=== PATIENT | male | born 1970 | race Caucasian/White ===

== ENCOUNTER 2018-04-25 09:00 | Outpatient (RCR) | payer OTHER, SELFPAY ==
--- NOTE | 2018-03-27 16:31 | HP.PTEVAL_ITS ---
Patient's Visit Information SHARA DELEON is a 47 year old M referred to Physical Therapy by Manuel Welsh DO with a diagnosis of LUMBAR DDD. Date of Evaluation: 03/27/18 Physical Therapist: Cassie Mccabe - Visit Plan Frequency: 3x /Week Duration: 4-6 Weeks Plan: AQUATIC THERAPY FOR PAINN RELIEF, POSTURE CORRECTION/STRENGTHENING, INSTRUCTION IN APPROPRIATE BODY MECHANICS AND ACTIVITY MODIFICATIONS. AGRESSIVE DLS STARTING WITH A NEUTRAL SPINE PROGRESSING ROM TOLERATED. ALMA LE ROM, STRETCHING AND STRENGTHENING. HEP INSTRUCTION. CONSIDER VIDEO ANALYSIS FOR CORRECTIVE EXERCISE PRESCRIPTION. - Subjective Subjective: Diagnosis: LUMBAR DDD. Work/Leisure: [employer] ABOUT 60 HOURS A WEEK. 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 Disability: NO. Present symptoms : NECK, THORACIC AND LUMBAR PAIN. ALMA FOOT TINGLING AND PAIN. NO UE PAIN, NUMBNESS OR TINGLING. INTERMITTENT ALMA HIP, THIGH AND LEG PAIN TOO. Present since: 2006. Pain Scale: Worst - 6/10 Least - 2/10. Currently: 2/10 THORACIC PAIN. A LITTLE BIT OF TINGLING IN NECK. Commenced as a result of: NO APPARENT REASON OTHER THAN HEAVY LIFTING. Symptoms at onset: POSTERIOR THIGHS. Worse: NECK - WEARING LEAF BLOWER, CARRYING GROCERIES. LOW BACK - ON FEET A LOT, JOGGING, STANDING. THORACIC - SITTING? USUALLY THORACIC IS CONSTANT. Better: RESTING IN LYING DOWN AND SOMETIMES SITTING. INVERSION TABLE. VICODIN. Disturbed sleep: NO. Previous history/Previous treatment: PATIENT REPORTS HE WAS TRYING TO GET A LOT OF THINGS DONE BEFORE VACATION IN 2006 AND BACK FLARED UP FOR NO APPARENT REASON. ENDED UP WITH MRI SUNDAY AND SURGERY FOLLOWING SUNDAY. 2006 - LUMBAR LAMINECTOMY DR. THOMAS. PT HERE AFTER SURGERY. PAIN MGMT TRIED MARVIN IN NECK ABOUT 10 YEARS AGO - NO EFFECT. NO SIGNIFICANT CHIRO. 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 SURGERY WAS RECOMMENDED BY [facility]. PATIENT REPORTS HE ELECTED NOT TO HAVE THE SURGERY AT THAT TIME BECAUSE THEY TOLD HIM IT WOULD NOT FIX HIS FOOT PROBLEM. HE REPORTS HE WAS HAVING A LOT OF HIP PAIN AT THAT TIME TOO - HAD IMAGING AND ORTHO CONSULT BUT WAS DETERMINED TO BE MORE OF A SPINE PROBLEM. PATIENT REPORTS DURING THIS - ABOUT A YEAR AGO - MOST OF THE PAIN WAS MORE RIGHT LE BUT NOW IT IS BOTH LEGS ABOUT THE SAME. Coughing/sneezing/straining: NEGATIVE. Gait: NORMAL ALTHOUGH HE THINKS RIGHT FOOT SLAPS SOME IF HE OVER DOES IT AND HE ISN'T SURE IF IT IS RESIDUAL FROM PRIOR INJURY OR NOT. Difficulty initiating urinatin: NO. Accidents: NO. Unexplained weight loss: NO. Imaging: RECENT LUMBAR X-RAYS AT [facility] - PATIENT REPORTS THEY TOLD HIM THEY SHOWED DEGENERATION OF MULTIPLE LEVELS. STENOSIS? PATIENT REPORTS THEY TOLD HIM HE WILL PROBABLY NEED AN MRI AND POSSIBLY SURGERY. PMH/Recent major surgery: PROSTATE - SEEING UROLOGIST. H/O RIGHT FOOT INJURY? OTHER: MRI OF LUMBAR SPINE HAS NOT BEEN ORDERED YET. PT WAS RECOMMENDED FIRST. OTHER: WITHIN 1.5 TO 2 MILES OF JOGGING HAS TO STOP DUE TO PAIN AND RECOVERY TIME IS GETTING LONGER. NOW RECOVERY ISN'T JUST LOW BACK, IT CAN BE HIPS AND GROIN TOO. PATIENT REPORTS IT IS THE IMPRACT FROM JOGGING THAT IS THE MAIN ISSUE MORE THAN LIFTING. PATIENT REPORTS THAT PT IN THE PAST HAS HELPED. - Objective Sitting/Standing Posture: FAIR. Lordosis: REDUCED. Lateral shift: NO. Relevant shift: N/A. Other Observations: INDEP GAIT AND TRANSFERS. NO AD'S. INDEP SIT TO STAND WITHOUT UE ASSIST. Motor deficit: ALMA LE STRENGTH 5/5 WITH MMT EXCEPT RIGHT ANKLE GRADED 4/5 INTO DORSIFLEXION AND EVERSION. Sensory deficit: NO. ROM deficit: TIGHT ALMA HS'S AND GASTROC SOLEUS COMPLEX'S. Dural Signs: NEGATIVE ALMA LE DURAL SIGNS. Lumbar mvmt loss: flex - MIN. ext - MIN. R SG - MIN. L SG - MIN. Core strength: FAIR - Goals Goal 1:: DECREASE C/O LBP Goal Time Frame: 4-6 Weeks Goal 2:: IMPROVE LIFTING, STANDING, AND RECREATIONAL FUNCTION Goal Time Frame: 4-6 Weeks Goal 3:: INSTRUCT IN PROPHYLAXIS Goal Time Frame: 4-6 Weeks - Rehabilitation Potential Rehabilitation Potential: Good - Anticipated Interventions Patient/Client Instruction: Educate patient on: Condition, Plan of Care, Risk Factors, Benefits of Fitness Program For the Purpose of:: To improve self management Therapeutic Exercise to Include: Strength training, Body mechanics, Postural training, Flexibilty training, In an aquatic setting, Dynamic Lumbar Stabilization Comment: AGRESSIVE CORE STRENGTH AND STABILITY TRAINING TOLERATED. MONITOR ALMA FOOT SX'S AND AVOID PERIPHERALIZATION OF SX'S. For the Purpose of:: To improve ability of physical actions for home/community/ work/leisure TENS: Yes IF ES: Yes Cryotherapy (ice pack, ice massage): Yes Thermo therapy (hot pack): Yes Ultrasound (thermal/non thermal): Yes For the Purpose of:: To decrease pain, To decrease swelling/inflammation, To increase ROM Thank you for the opportunity to evaluate your patient. For Medicare and Medicare HMO plans, please review the plan of care and approve it. It will need to be FAXED BACK to us at [phone] for Medicare purposes. Please let me know if there are questions or concerns regarding this plan of care. Physician Signature: Date:
--- NOTE | 2018-04-25 09:40 | HP.PTDCSUM ---
HP - PT D/C Summary It has been my pleasure to treat SHARA DELEON under orders from Manuel Wise DO for the diagnosis of LUMBAR DDD for a total of 10 visit(s). Discharge Date: Please see the following information for a summary of their discharge status. - Subjective Subjective: PATIENT REPORTS THAT HIS SYMPTOMS ARE ABOUT THE SAME BUT HE CAN DEFINATELY CORRECT SOME OF THE PAIN BY CHANGING HIS POSTURE. PATIENT REPORTS HE THINKS HIS RIGHT HAMSTRING IS HURTING BECAUSE HE WORKED A LOT YESTERDAY. - Pain Lumbar Spine Pain Intensity (Out of 10): 2 - Overall Improvement % Improvement: 5 - Objective Objective/Function: ALTHOUGH PATIENT HAS BEEN ABLE TO LEARN SOME PAIN MGMT TECHNIQUES, THERE HAS BEEN NO SIGNIFICANT PROGRESS WITH PT. UPON EXAM TODAY: Motor deficit: ALMA LE STRENGTH 5/5 WITH MMT EXCEPT RIGHT ANKLE GRADED 4/5 INTO DORSIFLEXION AND EVERSION. Sensory deficit: NO. ROM deficit: TIGHT ALMA HS'S AND GASTROC SOLEUS COMPLEX'S. Dural Signs: NEGATIVE ALMA LE DURAL SIGNS. Lumbar mvmt loss: flex - MIN. ext - MIN. R SG - MIN. L SG - MIN - Goals Goal 1:: DECREASE C/O LBP Goal Progress: Not Progressing Goal 2:: IMPROVE LIFTING, STANDING, AND RECREATIONAL FUNCTION Goal Progress: Not Progressing Goal 3:: INSTRUCT IN PROPHYLAXIS Goal Progress: Not Progressing - Plan Plan: D/C DUE TO LACK OF PROGRESS. FOLLOW UP PLANNED WITH DR. WISE NEXT WEEK. PATIENT IS AGREEABLE TO DISCHARGE. - D/C Information If there are questions or concerns regarding this patient's physical therapy, please feel free to call me at [phone]. Thank you for the referral of this patient. Sincerely, Cassie Mccabe
== END 2018-04-25 19:00 | disposition home or self-care (01) ==
LOC: PT 09:00
PROVIDERS: Family Provider Family Medicine; PCP Family Medicine; Visit Provider Orthopaedic Surgery
DX: M51.36 Other intervertebral disc degeneration, lumbar region (principal)
CPT/HCPCS: 97113; 97161; 97164; 97530

== ENCOUNTER 2020-10-18 19:55 | Emergency (ER) | payer OTHER, SELFPAY ==
[2020-09-29 07:39] VITALS: BMI 25.5
[2020-10-18 19:56] VITALS: BP 146/95; PULSE 66; RESP 16; TEMP 36.4; O2SAT 99; BMI 25.1
--- NOTE | 2020-10-18 20:04 | RAD_ITS ---
STUDY: X-RAY CHEST REASON FOR EXAM: Male, 50 years old. Lower left rib pain that radiates into shoulder TECHNIQUE: Single frontal view of the chest. COMPARISON: 09/14/2017 FINDINGS: There is no new focal consolidation. Normal size heart. Normal mediastinum and kimber. Normal visualized pulmonary arteries. Normal visualized aortic arch and descending thoracic aorta. Normal visualized thoracic spine. Normal visualized ribs, clavicles, and shoulders. There is no demonstrated abnormality of the visualized soft tissue structures of the upper abdomen. RAD/Chest 1 View (Portable) IMPRESSION: No acute cardiopulmonary process. Electronically Signed: Lizzie Wade MD at 20:15 EST Tel , Service support ,
[2020-10-18 20:13] LABS: Absolute Lymphocyte Count 3.33 X10^3/uL (0.83-4.51); Absolute Neutrophil Count 3.3 X10^3/uL (2.0-7.7); Basophil# 0.04 X10^3/uL; Basophil% 0.5 % (0-1); Eosinophils% 1.3 % (0-5); Hematocrit 41.7 % (40-54); Hemoglobin 14.7 g/dL (13.0-16.5); Lymphocyte # 3.33 X10^3/ul (4.0); Lymphocyte % 44.3 % (19-41); Mean Corp Hgb Conc 35.3 g/dL (32-36); Mean Corpuscular Hgb 33.3 pg (27.0-32.0); Mean Corpuscular Volume 94.3 fL (80-94); Mean Platelet Vol. 9.1 fl (6.2-12.0); Monocyte# 0.68 X10^3/uL; Monocyte% 9.1 % (0-10); NRBC Flagged by Analyzer 0 % (0-5); Neutrophil # 3.34 X10^3/uL (2.7-7.7); Neutrophil % 44.5 % (47-70); Platelet Count 256 K/mm3 (150-450); RBC Distribution Width CV 12.8 % (11.6-14.6); RBC Distribution Width SD 44.2 fl (35.1-43.9); Red Blood Count 4.42 M/mm3 (4.6-6.2); White Blood Count 7.5 K/mm3 (4.4-11.0)
[2020-10-18 20:26] LABS: D-Dimer Quantitative (DVT/PE) 0.57 FEU/ug/m (0.27-0.49)
[2020-10-18 20:27] LABS: Anion Gap 6 (5-15); BUN 16 mg/dL (7-18); Calcium,Total 8.7 mg/dL (8.5-10.1); Chloride 107 mmol/L (98-107); Creatinine, Serum 1.07 mg/dL (0.70-1.30); EST Glomerular Filtration Rate 78 mL/min (>60); Est Glom Filt Rate - Afr Amer 94 mL/min (>60); Estimated Creatinine Clearance 85.28 ml/min; Glucose 97 mg/dL (74-106); Sodium Level 142 mmol/L (136-145)
--- NOTE | 2020-10-18 20:58 | CT_ITS ---
STUDY: CTA CHEST REASON FOR EXAM: Male, 50 years old. ELEVATED D DIMER. HAVING CP WHEN TAKING IN A DEEP BREATH RADIATION DOSAGE (If Supplied By Facility): CTDIvol = ( 8.29 ) mGy, DLP = ( 362.12 ) mGycm TECHNIQUE: The examination was performed with the intravenous administration of IV 100mL Isovue-370. Post-processing of the angiographic images was performed, with multiplanar reformation and 3D reconstruction. Individualized dose optimization techniques were used for this CT. COMPARISON: None. FINDINGS: Normal enhancement of the main pulmonary artery and right and left pulmonary arteries. Normal enhancement of the bilateral peripheral pulmonary arteries. There is no demonstrated pulmonary embolism. Normal thoracic aorta and visualized great vessels. There is no demonstrated aortic dissection. Normal heart and pericardium. Normal mediastinum. Normal hilar regions. Normal visualized trachea and bronchi. The lungs are well expanded. Normal pulmonary parenchyma. Posterior to the right anterior sixth rib there is a small focus of air which may be intravascular in nature. Normal pleura. Normal chest wall structures. Normal osseous structures. Normal visualized upper abdomen. CT/CTA Chest W/WO Contrast IMPRESSION: No demonstrated pulmonary embolism or arterial dissection. No acute cardiopulmonary process. Electronically Signed: Lizzie Wade MD at 21:30 EST Tel , Service support ,
--- NOTE | 2020-10-18 22:36 | EKG12_ITS ---
Test Reason : CHEST OTHER Blood Pressure : / mmHG Vent. Rate : 050 BPM Atrial Rate : 050 BPM P-R Int : 158 ms QRS Dur : 098 ms QT Int : 430 ms P-R-T Axes : 046 018 036 degrees QTc Int : 392 ms Sinus bradycardia Otherwise normal ECG Confirmed by SUNITA LOCKE, KOKO ([id number]), magazine editor ABDIFATAH BARNES ([id number]) on 10/20/2020 1:06:19 PM Referred By: Confirmed By:KOKO DORSEY MD
[2020-10-18 22:52] VITALS: BP 124/89; PULSE 57; RESP 17; O2SAT 98
--- NOTE | 2020-10-18 23:11 | ED.VISSUMM ---
- ER Visit Summary Date of Service: 10/18/20 Chief Complaint: Left rib pain History of Present Illness: The patient is a 50 M presenting with left-sided rib pain. Patient states this started on Sunday. Pain is worsened with deep inspiration and different movements. He has no pain at rest. Pain is under his left ribs. Denies injury. He has a family history of blood clot. He denies shortness of breath or cough. Denies fever or chills. Denies myalgias or headache. Physical Examination: Vitals are stable. Patient is afebrile. Alert no acute distress. HEENT exam is unremarkable. Neck is supple. Lungs are clear and equal bilaterally. Heart is regular rate and rhythm. Abdomen is soft nontender nondistended. No guarding or rebound Extremities are unremarkable. Skin is warm and dry. No focal neurologic deficit. Remainder of exam is unremarkable. Emergency Department Course and Treatment: CBC, chemistries unremarkable. EKG is sinus rate of 50 with no acute ischemic changes. Chest x-ray shows no acute process. D-dimer 0.57. CTA chest was obtained and shows no demonstrated pulmonary embolism or arterial dissection. No acute cardiopulmonary process. Troponin is negative. Lipase is normal. On reevaluation, patient is resting comfortably. He has pain in different positions and when taking a deep breath. This is likely musculoskeletal. Advised to follow-up with primary care physician. Advised return to ED for worsening complaints. Disposition: Discharge home Impression: Left lower rib pain This note was generated with Tealium dictation software. It may contain incorrect words, spelling, and punctuation that were not noted in review of the chart prior to signing ED Disposition - Plan for ED Patient: Referrals: Rigoberto Reddy MD [Primary Care Provider] -
[2020-10-18 23:17] LABS: AST(SGOT) 17 U/L (15-37); Alanine Aminotransfer ALT/SGPT 27 U/L (16-61); Albumin, Serum 3.9 g/dL (3.2-5.0); Alkaline Phosphatase 55 U/L (45-117); Bilirubin, Direct 0.14 mg/dL (0.00-0.30); Globulin 3.6 g/dL (2.2-4.2); Protein, Total 7.5 g/dL (6.4-8.2)
[2020-10-18 23:20] LABS: Lipase 155 U/L (73-393)
--- NOTE | 2020-10-18 23:45 | ED.DEP ---
ED Disposition - Plan for ED Patient: Instructions: ED Strain Chest Wall Referrals: Rigoberto Reddy MD [Primary Care Provider] -
[2020-10-19 00:05] VITALS: BP 121/94; PULSE 60; RESP 12; O2SAT 96
== END 2020-10-19 00:05 | disposition home or self-care (01) ==
LOC: ED 22:13
PROVIDERS: Emergency Provider Emergency Medicine; PCP Family Medicine
DX: R07.81 Pleurodynia (principal)
CPT/HCPCS: 71045; 71275; 80048; 80076; 83690; 84484; 85025; 85379; 93005; 99284; Q9967; A4216

== ENCOUNTER → 2021-09-02 | Outpatient (CLI) | payer OTHER, SELFPAY | END | disposition home or self-care (01) | LOC: LABSPEC 10:17 | PROVIDERS: PCP Family Medicine; Referring Provider Physician Assistant Surgical; Visit Provider Physician Assistant Surgical | DX: Z20.822 Contact with and (suspected) exposure to COVID-19 (principal) | CPT/HCPCS: 87635; U0005; U0003 ==

== ENCOUNTER → 2025-01-20 | Outpatient (CLI) | payer OTHER, SELFPAY | END | disposition home or self-care (01) | LOC: LAB.FUTURE 16:25 → VSLAB 16:29 | DX: Z00.00 Encounter for general adult medical examination without abnormal findings (principal); Z83.2 Family history of diseases of the blood and blood-forming organs and certain disorders involving the immune mechanism | CPT/HCPCS: 36415 ==

== ENCOUNTER 2025-01-28 11:59 | Emergency (ER) | payer OTHER, SELFPAY ==
[2025-01-28 11:59] VITALS: BP 133/92; PULSE 64; RESP 15; TEMP 36.2; O2SAT 100
--- NOTE | 2025-01-28 12:46 | EX.ED.DYSGE1 ---
HPI History of Present Illness Chief Complaint: Lower Extremity Injury Narrative Narrative: Chief complaint and HPI: Right lower extremity DVT. 54-year-old gentleman with no significant past medical history presents from radiology for right lower extremity DVT. Patient states for the past year he has been having intermittent pain in his right calf compared to his left. He states that he felt like his right calf is slightly larger than the left. He states he did not think anything of it until his brother was recently diagnosed with a DVT so he decided to have this further evaluated outpatient with his PCP. Blood work was obtained as well as ultrasound. Patient had his ultrasound performed prior to arrival that showed a right lower extremity DVT. He denies any chest pain, shortness of breath, lightheadedness. Review of systems: See HPI Medications: As listed on the chart Allergies: As listed on the chart PFSH: Per chart Vital signs: As listed on the chart. Reviewed. Physical exam: Gen: A&O x3, NAD Head: Normocephalic, atraumatic Eyes: No sclera icterus, conjunctiva clear ENT: Moist mucous membranes Neck: Trachea midline, No JVD CV: RRR, no murmurs Resp: Lungs CTA BL, no w/r/c Musc: Full ROM, no deformity, minimal tenderness to the right lower calf compared to the left-no erythema/warmth/swelling of either extremity, DP/PT pulse +2 Skin: Warm, dry Neuro: Alert, oriented, grossly intact, sensation intact Psych: Cooperative, appropriate mood and affect [facility] Medical History Back pain Limb weakness Home Medications ?Medication ?Instructions ?Recorded ?Last Taken ?Type Boostrix Tdap 2.5 Lf unit-8 mcg-5 0.5 ml IM ONCE #1 mL 08/28/22 Unknown Clinic Lf/0.5 mL intramuscular syringe (diphth,pertus(acell),tetanus) Flucelvax Quad [id number] (PF) 60 0.5 ml IM ONCE #0.5 mL 08/28/22 Unknown Clinic mcg (15 mcg x 4)/0.5 mL IM syringe (flu vac qs 2021(6 ms up)CD(PF)) apixaban 5 mg (74 tabs) tablets in See Rx Instructions PO .COMPLEX 01/28/25 Unknown Rx a dose pack (Eliquis DVT-PE Treat #74 tabs 30D Start) Allergy/AdvReac Type Severity Reaction Status Date / Time No Known Allergies Allergy Verified 01/28/25 12:02 Family History (Updated 12/31/23 @ 09:02 by Sandro Corbin SLITTER OPERATOR, SLITTER OPERATOR-C) Mother Colon cancer Pancreatic cancer Blood clotting disorder Sister Blood clotting disorder Brother Blood clotting disorder Surgical History History of back surgery Social History Smoking Status: Never smoker alcohol intake: current Alcohol type: beer EXAM Physical Exam Const Vital Signs: 01/28/25 11:59 Temperature 97.1 F L Temperature Source Temporal Pulse Rate 64 Respiratory Rate 15 Blood Pressure 133/92 H Blood Pressure Mean 105 Pulse Ox 100 Oxygen Delivery Method Room Air MDM MDM MDM Narrative Medical decision making narrative: 54-year-old gentleman with no significant past medical history presents from radiology for right lower extremity DVT. Patient states he has been having intermittent pain in his right calf for a year. He obtain an ultrasound prior to arrival that shows an acute DVT in the right soleus vein. No DVT on the left. On presentation, vitals are stable other than some mild hypertension. He denies any lightheadedness, chest pain, shortness of breath, syncope. I do not think any further workup is needed such as labs or imaging. Patient has no contradictions to anticoagulation. 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 I did explain to him that he will need to be placed on a blood thinner, Eliquis. I explained to him that this can increase spontaneous bleeding as well as bleeding with trauma or injury. I explained to him that if he develops any injury he needs to be evaluated in the emergency department for bleeding. He confirmed understanding the plan. Patient discharged home with prescription for Eliquis. He needs follow-up with his PCP. Return precautions explained. He confirmed understanding of the plan. Impression: 1. Right lower extremity DVT Discharge Plan Triage Chief Complaint: Lower Extremity Injury ED Provider: Karri Escobedo Dx/Rx/DC Orders Clinical Impression: DVT (deep venous thrombosis) Instructions: DVT Complications, Anticoagulants, DVT Tx, ED Deep Vein Thrombosis (DVT) Prescriptions: New Eliquis DVT-PE Treat 30D Start 5 mg (74 tabs) tablets,dose pack See Rx Instructions .ROUTE .COMPLEX Qty: 74 0RF Rx Instructions: orally per package directions No Action Boostrix Tdap 2.5-8-5 Lf-mcg-Lf/0.5mL syringe 0.5 ml IM ONCE Qty: 1 0RF Flucelvax Quad [id number] (PF) 60 mcg (15 mcg x 4)/0.5 mL syringe 0.5 ml IM ONCE Qty: 0.5 0RF Primary Care Provider: Samuel Howard Referrals: Samuel Howard, SLITTER OPERATOR-C [Primary Care Provider] - 3-5 Days Activity Restrictions/Additional Instructions: Follow-up with your primary care physician. You need to be careful while being on blood thinners as blood thinners increase the risk of bleeding with injury as well as spontaneous bleeding. Let your job know that you were started on blood thinners. Print Language: Grenadian Disposition Disposition: Home, Self Care
== END 2025-01-28 13:12 | disposition home or self-care (01) ==
LOC: ED 13:04
PROVIDERS: Emergency Provider Surgery; Referring Provider Surgery; Visit Provider Surgery
DX: I82.401 Acute embolism and thrombosis of unspecified deep veins of right lower extremity (principal)
CPT/HCPCS: 99282

== ENCOUNTER → 2025-01-28 | Outpatient (CLI) | payer OTHER, SELFPAY ==
--- NOTE | 2025-01-28 10:45 | VDLE_ITS ---
Reason For Study Reason For Study: Pain in Right lower leg RIGHT LEFT GSV is normal. CFV is compressible, spontaneous, phasic, competent, CFV is compressible, spontaneous, phasic, competent and demonstrates normal augmentation. and demonstrates normal augmentation. FV is compressible, spontaneous, phasic, competent and demonstrates normal augmentation. Acute deep vein thrombosis is noted in the POP V. It is dilated and NONCOMPRESSIBLE. Acute deep vein thrombosis is noted in the T/P Trunk. It is dilated and NONCOMPRESSIBLE. PTV is compressible. Acute deep vein thrombosis is noted in the Per V. It is dilated and NONCOMPRESSIBLE. Acute deep vein thrombosis is noted in the right soleus vein. Procedure This is a venous duplex using B-mode, color flow and spectral Doppler. Exam performed in department. A preliminary report was called and/or faxed to Voicemail left on nurses line for Samuel Palma office. Patient taken to ED. VL/Venous Duplex US, Unilateral Interpretation Summary Acute deep vein thrombosis is noted in the right popliteal vein. Acute deep vei n thrombosis is noted in the right tibio- peroneal trunk. Acute deep vein thrombosis is noted in the right peroneal vein. Acute deep vein thrombosis is noted in the right soleus vein. The right common femoral vein, femoral vein, and posteri or tibial vein are patent and compressible. Valvular competence appears intact within the proximal deep venou s system on the right . The right great saphenous vein appears patent and compressible segmentally. The left common fem oral vein is patent and compressible . Ordering Physician: Samuel Howard Referring Physician: Samuel Howard Performed By: Gretchen Isbell
== END | disposition home or self-care (01) ==
LOC: CVS 10:42
DX: M79.661 Pain in right lower leg (principal)
CPT/HCPCS: 93971

== ENCOUNTER 2025-04-08 07:03 | Emergency (ER) | payer OTHER, SELFPAY ==
[2025-04-08 07:05] VITALS: BP 144/90; PULSE 60; RESP 16; TEMP 36.6; O2SAT 100; BMI 25.8
--- NOTE | 2025-04-08 07:18 | CT_ITS ---
PROCEDURE: CTA CHEST W/WO CONTRAST 04/08/2025 REASON FOR EXAM: HISTORY OF DVT, SHORTNESS OF BREATH TECHNIQUE: CTA axial imaging of the chest with intravenous contrast. Multiplanar and multisequence images were obtained. PATIENT PREPARATION: Per protocol CONTRAST: Isovue 370 VOLUME: 100 mL One or more dose reduction techniques were used (e.g., Automated exposure control, adjustment of the mA and/or kV according to patient size, use of iterative reconstruction technique). RADIATION DOSE SUMMARY: CTDlvol: 10.5 mGy DLP: 402.01 mGycm . COMPARISON: None FINDINGS: Hardware: None Lymph nodes: Small benign-appearing mediastinal lymph nodes. Heart: The heart is nonenlarged. No coronary calcification is seen. Thoracic Aorta: No thoracic aortic aneurysm or dissection. Pulmonary Vessels: No evidence of acute pulmonary emboli through the major subsegmental branches. Lungs and Airways: Mild dependent atelectasis. Pleura: No pleural effusion. No pneumothorax. Upper Abdomen: Visualized portions of the upper abdominal viscera are unremarkable. Bones: Unremarkable. CT/CTA Chest W/WO Contrast IMPRESSION: No evidence of pulmonary embolism. The lungs are clear. Reading Location: [place] [id number]
--- NOTE | 2025-04-08 07:19 | ED.VIS.DYS ---
HPI History of Present Illness Chief Complaint: Shortness of Breath Narrative Narrative: 54-year-old male past medical history of DVTs, having shortness of breath for 2 months. He relates history that he was diagnosed with DVTs and started Eliquis a few months ago. He has not missed a dose. However, he is concerned that he has a pulmonary embolism because all of his brothers had to start blood thinners and his mother also had pulmonary emboli. He denies any fevers or chills, no cough. He does not have follow-up with hematology/oncology until the next few weeks. [facility] Medical History Back pain Limb weakness Home Medications ?Medication ?Instructions ?Recorded ?Last Taken ?Type Boostrix Tdap 2.5 Lf unit-8 mcg-5 0.5 ml IM ONCE #1 mL 08/28/22 Unknown Clinic Lf/0.5 mL intramuscular syringe (diphth,pertus(acell),tetanus) Flucelvax Quad [id number] (PF) 60 0.5 ml IM ONCE #0.5 mL 08/28/22 Unknown Clinic mcg (15 mcg x 4)/0.5 mL IM syringe (flu vac qs 2021(6 ms up)CD(PF)) apixaban 5 mg (74 tabs) tablets in See Rx Instructions PO .COMPLEX 01/28/25 Unknown Rx a dose pack (Eliquis DVT-PE Treat #74 tabs 30D Start) sulfacetamide sodium 10 % topical 1 applic topical QDAY 03/05/25 Unknown 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 No fevers or chills, no other symptoms. EXAM Physical Exam Narrative Exam Narrative: Afebrile. Vital signs noted. Nontoxic-appearing. Cardiovascular examination of is a regular rate and rhythm. Lungs are clear to auscultation bilaterally. Abdomen is soft nontender with normal active bowel sounds. Neurovasc intact bilateral lower extremities. Palpable dorsalis pedis pulses. Const Vital Signs: 04/08/25 07:05 04/08/25 07:21 Temperature 97.8 F Temperature Source Oral Pulse Rate 60 Respiratory Rate 16 Respiratory Effort Normal Respiratory Depth Normal Respiratory Pattern Normal Blood Pressure 144/90 H Blood Pressure Mean 108 Pulse Ox 100 Oxygen Delivery Method Room Air Room Air MDM MDM MDM Narrative Medical decision making narrative: Differential diagnosis includes but not limited to pulmonary emboli versus anxiety versus pneumonia versus pneumothorax. History and physical does not support pneumonia or pneumothorax. Pulse ox is 100% on room air without evidence of hypoxia. He is not tachycardic. I had a discussion with the patient that treatment for pulmonary emboli and DVT is being on Eliquis. He has not missed a dose. I do feel that there is a strong anxiety component regarding this. He is mildly adamant that CTA should be performed to look for clot burden. I will look for other source of his subjective dyspnea and feeling that he cannot take a deep breath at the lung parenchyma. I will also check a CBC and a BMP to look for other causes such as anemia but clinically I do not feel that he has a low hemoglobin. I reviewed his laboratory work and he has normal white count of 6.3 with hemoglobin normal at 15.5, no anemia. Platelet count normal at 251. Electrolyte panel grossly unremarkable. I reviewed the radiology report of the CT of the chest/CTA and there is no evidence of a pulmonary embolism, no pneumonia, no pneumothorax. 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 I do not feel he requires observation or admission. He was told to continue the use of his blood thinner/Eliquis. Disposition is discharged home in stable condition. History & Record Review Discussion w/independent historian: Patient Additional record(s) reviewed:: Prior ED visit (Had outpatient ultrasound which showed DVT of the soleus vein.) Lab Data Attestation: I reviewed the patient's lab results. Labs: Laboratory Results - last 24 hr 04/08/25 07:26 WBC 6.3 RBC 4.58 L Hgb 15.5 Hct 43.1 MCV 94.1 H MCH 33.8 H MCHC 36.0 RDW Std Deviation 44.0 H RDW Coeff of Dorie 12.7 Plt Count 251 MPV 9.1 Immature Gran % (Auto) 0.300 Neut % (Auto) 45.8 L Lymph % (Auto) 39.8 [place] % (Auto) 11.8 H Eos % (Auto) 1.8 Baso % (Auto) 0.5 Absolute Neuts (auto) 2.9 Absolute Lymphs (auto) 2.49 Nucleated RBC % 0 Sodium 138 Potassium 4.1 Chloride 106 Carbon Dioxide 21.9 Anion Gap 10 BUN 14 Creatinine 0.97 Estim Creat Clear Calc 89.89 Est GFR (MDRD) Non-Af 92 BUN/Creatinine Ratio 14.1 Glucose 91 Calcium 8.9 Radiography Diagnostic Testing: Clinical Impression(s) from Imaging Studies Chest CTA 04/08/25 07:18 IMPRESSION: No evidence of pulmonary embolism. The lungs are clear. Reading Location: [place] [id number] Discharge Plan Triage Chief Complaint: Shortness of Breath ED Provider: Tone Mata Dx/Rx/DC Orders Clinical Impression: Dyspnea, History of deep vein thrombosis (DVT) of lower extremity Instructions: ED Dyspnea Prescriptions: No Action Boostrix Tdap 2.5-8-5 Lf-mcg-Lf/0.5mL syringe 0.5 ml IM ONCE Qty: 1 0RF Flucelvax Quad (PF) 60 mcg (15 mcg x 4)/0.5 mL syringe 0.5 ml IM ONCE Qty: 0.5 0RF sulfacetamide sodium 10 % cleanser 1 applic topical QDAY Eliquis DVT-PE Treat 30D Start 5 mg (74 tabs) tablets,dose pack See Rx Instructions .ROUTE .COMPLEX Qty: 74 0RF Rx Instructions: orally per package directions Primary Care Provider: Samuel Howard Referrals: Samuel Howard, INSULATING MACHINE OPERATOR-C [Primary Care Provider] - Activity Restrictions/Additional Instructions: Continue your Eliquis as previously directed. Follow-up with hematology/oncology as scheduled. Return with new or worsening symptoms. Print Language: Persian Disposition Disposition: Home, Self Care
[2025-04-08 07:21] VITALS: O2SAT 100
[2025-04-08 07:37] LABS: Absolute Lymphocyte Count 2.49 X10^3/uL (0.83-4.51); Absolute Neutrophil Count 2.9 X10^3/uL (2.0-7.7); Basophil# 0.03 X10^3/uL; Basophil% 0.5 % (0-1); Eosinophil# 0.11 X10^3/uL; Eosinophils% 1.8 % (0-5); Hematocrit 43.1 % (40-54); Hemoglobin 15.5 g/dL (13.0-16.5); Lymphocyte # 2.49 X10^3/ul (0.83-4.51); Lymphocyte % 39.8 % (19-41); Mean Corpuscular Hgb 33.8 pg (27.0-32.0); Mean Corpuscular Volume 94.1 fL (80-94); Mean Platelet Vol. 9.1 fl (6.2-12.0); Monocyte# 0.74 X10^3/uL; Monocyte% 11.8 % (0-10); NRBC Flagged by Analyzer 0 % (0-5); Neutrophil # 2.86 X10^3/uL (2.7-7.7); Neutrophil % 45.8 % (47-70); Platelet Count 251 K/mm3 (150-450); RBC Distribution Width CV 12.7 % (11.6-14.6); Red Blood Count 4.58 M/mm3 (4.6-6.2); White Blood Count 6.3 K/mm3 (4.4-11.0)
[2025-04-08 08:24] LABS: Anion Gap 10 (5-15); BUN 14 mg/dL (4-19); BUN/Creat Ratio 14.1 RATIO (10-20); Calcium,Total 8.9 mg/dL (7.6-11.0); Carbon Dioxide 21.9 mmol/L (21.0-32.0); Chloride 106 mmol/L (98-108); Creatinine, Serum 0.97 mg/dL (0.70-1.20); EST Glomerular Filtration Rate 92 (>60); Estimated Creatinine Clearance 89.89 ml/min (50-250); Glucose 91 mg/dL (70-99); Potassium 4.1 mmol/L (3.3-5.1); Sodium Level 138 mmol/L (133-145)
[2025-04-08 08:57] VITALS: BP 125/88; PULSE 46; RESP 16; TEMP 36.5; O2SAT 99
== END 2025-04-08 08:58 | disposition home or self-care (01) ==
PROVIDERS: Emergency Provider Emergency Medicine; Visit Provider Emergency Medicine
DX: R06.00 Dyspnea, unspecified (principal); Z86.718 Personal history of other venous thrombosis and embolism
CPT/HCPCS: 71275; 80048; 85025; 99284; Q9967; A4216

== ENCOUNTER → 2025-05-27 | Outpatient (CLI) | payer OTHER, SELFPAY ==
--- OUTSIDE RECORDS SUMMARY | 2025-05-27 21:18 | XMS RPT_ITS | CCD ---
Author Organization [facility] Care Team Providers Care Screenplay Writer Name Role Phone IRVING SALTER Unavailable Unavailable IRVING SALTER Unavailable Unavailable ANTONIO NERI Unavailable UnavailIRVING Frazier Unavailable Unavailable Rigoberto Reddy MD Primary Care Provider Dr. Rigoberto Reddy MD Primary Care Provider Dr. Rigoberto Reddy MD Referring Provider Abhilash Ambrose Attending Provider [phone] Jamari Noble Attending Provider Beam SHIPWRIGHT APPRENTICE-C, Zebulun Primary Care Provider Beam SHIPWRIGHT APPRENTICE-C, Zebulun Attending Provider Beam SHIPWRIGHT APPRENTICE-C, Zebulun Referring Provider Dr. Karri Escobedo DO Referring Provider Dr. Karri Escobedo DO Emergency Provider Dr. Rigoberto Reddy MD Primary Care Provider Dr. Rigoberto Reddy MD Referring Provider Dr. Lincoln Quigley MD Attending Provider Dr. Karri Escobedo DO Attending Provider Ирина Stewart Attending Provider Unavailable Tone Mata MD Emergency Provider Tone Mata MD Attending Provider Dr. Anthony Medina MD Attending Provider Dr. Anthony Medina MD Referring Provider Dr. Anthony Medina MD Referring Provider Beam SHIPWRIGHT APPRENTICE-C, Zebulun Primary Care Provider Beam SHIPWRIGHT APPRENTICE-C, Zebulun Attending Provider Yeimy LOCKE, Dr. Dunne Attending Provider Ирина Stewart Attending Unavailable Beam, Zebulun Primary Care Unavailable Klusty-DilmaNasimel Referring Unavailabl e Klusty-Dilma, Karri Attending Unavailabl e Beam, Zebulun Primary Care Unavailable Assessment, Health Risk Referring Unavaila ble Assessment, Health Risk Attending Unavaila ble Maureen, Rigoberto Primary Care Unavailable Beam, Zebulun Primary Care Unavailable PrahAnthony Referring Unavailable Prah, Anthony Attending Unavailable Beam, Zebulun Primary Care Unavailable Beam, Zebulun Referring Unavailable Uzair Gaffney Attending Unavailable Jamari Noble Attending Unavailable Maureen, Rigoberto Primary Care Unavailable [place], Rigoberto Referring Unavailable Jamari Noble Attending Unavailable [place], Rigoberto Referring Unavailable [place], Rigoberto Primary Care Unavailable Jamari Noble Attending Unavailable Maureen, Rigoberto Referring Unavailable Maureen, Rigoberto Primary Care Unavailable Abhilash Ambrose Attending Unavailable Maureen, Rigoberto Referring Unavailable Maureen, Rigoberto Primary Care Unavailable Beam, Zebulun Primary Care Unavailable Beam, Zebulun Referring Unavailable Pradank, Anthony Attending Unavailable Beam, Zebulun Primary Care Unavailable Beam, Zebulun Referring Unavailable Pradank, Anthony Attending Unavailable Beam, Zebulun Primary Care Unavailable Uzair Gaffney Referring Unavailable Uzair Gaffney Attending Unavailable Beam, Zebudave Attending Unavailable Beam, Zebulun Primary Care Unavailable Beam, Zebulun Referring Unavailable Beam, Zebudave Attending Unavailable Beam, Zebulun Primary Care Unavailable Beam, Zebulun Primary Care Unavailable Tone Mata Attending Unavailable Medications Current Medications Medication Drug Class(es) Dates Sig (Normalized) Sig (Original) apixaban 5 mg oral tablet (12 sources) Factor Xa Inhibitor Start: 04-20-2025 End: 05-19-2025 take 1 tablet by mouth twice daily Apixaban (Eliquis) 5 mg tablet Active 5 mg PO TWICE A DAY 60 3 May 19, 2025 11:29am Start: 01-28-2025 End: 04-20-2025 take 1 tablet by mouth once Apixaban (Eliquis Dvt-Pe T reat 30d Start) 5 mg (74 tabs) tablets,dose pack Discontinued 0 PO .COMPLEX 74 0 January 28, 2025 12:00am April 20, 2025 3:34pm orally per package directions sulfacetamide sodium 100 mg/ml medicated liquid soap (4 sources) Sulfonamide Antibacterial Start: 03-05-2025 Sulfacetamide Sodium 10 % cleanser Active 1 NMA TOPICAL daily March 05, 2025 12:00am Completed/Discontinued Medications Medication Drug Class(es) Dates Sig (Normalized) Sig (Original) amoxicillin 875 mg / clavulanate 125 mg oral tablet (14 sources) Penicillin-class Antibacterial Start: 12-15-2022 End: 12-25-2022 Amoxicillin-Pot Clavulanate 875-125 mg tablet Discontinued 1 {tbl} PO Q12H 20 10 0 December 15, 2022 1:00am December 24, 2022 1:00am December 25, 2022 1:05am Acute sinusitis, unspecified Start: 01-18-2018 End: 01-28-2018 Amoxicillin-Pot Clavulanate (Augmentin) 875-125 mg tablet Discontinued 1 {tbl} PO Q12H 20 10 0 January 18, 2018 1:00am January 27, 2018 12:00am January 28, 2018 12:07am Acute sinusitis, unspecified doxycycline monohydrate 100 mg oral capsule (7 sources) Tetracycline-class Drug Start: 12-04-2024 End: 12-14-2024 take 1 capsule by mouth twice daily Doxycycline Monohydrate 100 mg capsule Discontinued 100 mg PO TWICE A DAY 20 10 0 December 04, 2024 1:00am December 13, 2024 1:00am December 14, 2024 1:11am methylPREDNISolone 4 mg oral tablet (14 sources) Corticosteroid Start: 12-04-2024 End: 12-10-2024 take 1 tablet by mouth once Methylprednisolone (Medrol (Peter)) 4 mg tablets,dose pack Discontinued 4 mg PO per package directions 21 6 0 December 04, 2024 1:00am December 09, 2024 1:00am December 10, 2024 1:09am Start: 12-15-2022 End: 12-21-2022 take 1 tablet by mouth once Methylprednisolone (Medrol (Peter)) 4 mg tablets,dose pack Discontinued 4 mg PO per package directions 21 6 0 December 15, 2022 1:00am December 20, 2022 1:00am December 21, 2022 1:05am Problems Active Problems Problem Classification Problem Date Documented Da te Episodic/Chronic Cardiac dysrhythmias (3 sources) Cardiac arrhythmia; Translations: [Cardiac arrhythmia, unspecified] Onset: 05-27-2025 05-07-2025 Chronic Cardiac dysrhythmias (5 sources) Palpitations; Translations: [Palpitations] Onset: 05-27-2025 Episodic Malaise and fatigue (5 sources) Other fatigue; Translations: [Fatigue] Onset: 06-08-2017 05-07-2025 Episodic Other lower respiratory disease (6 sources) Dyspnea; Translations: [Dyspnea, unspecified] 04-08-2025 Episodic Other lower respiratory disease (1 source) Shortness of breath; Translations: [Shortness of breath] Onset: 05-27-2025 Episodic Other nervous system disorders (2 sources) Paresthesia; Translations: [Paresthesia of skin] 05-07-2025 Episodic Other upper respiratory infections (10 sources) Acute sinusitis; Translations: [Acute sinusitis, unspecified] 01-18-2018 Episodic Phlebitis; thrombophlebitis and thromboembolism (20 sources) Deep venous thrombosis; Translations: [Acute embolism and thrombosis of unspecified deep veins of unspecified lower extremity] Onset: 02-04-2025 01-28-2025 Episodic Spondylosis; intervertebral disc disorders; other back problems (2 sources) Backache; Translations: [Dorsalgia, unspecified] 05-07-2025 Episodic Unclassified (2 sources) Elevated prostate specific antigen [PSA]; Translations: [ELEVATED PROSTATE SPECIFIC ANTIGEN (PSA)] Onset: 06-08-2017 Unclassified (4 sources) R00.2 - Palpitations Past or Other Problems Problem Classification Problem Date Documented Date Episodic/Chronic Administrative/social admission (13 sources) Patient encounter status; Translations: [Encounter for other administrative examinations] Onset: 01-12-2025 03-03-2019 Episodic Other connective tissue disease (1 source) Pain in right lower leg; Translations: [Pain in right lower leg] Onset: 02-04-2025 Episodic Other screening for suspected conditions (not mental disorders or infectious disease) (1 source) Raised prostate specific antigen; Translations: [Elevated prostate specific antigen [PSA]] Onset: 04-01-2020 04-01-2020 Episodic Results Test Name Value Interpretation Reference Range Facility Cardiology Visit Reporton Cardiology Visit Report [facility] [address] [place] [address] OFFICE VISIT Date of Service: 05/27/25 MR#: [id number] Acct: [id number] Name: SHARA DELEON Rep #: [id number] : 1970 Provider: Dr. Uzair Gaffney MD Age/Sex: 54/M [place] [facility] [place]: Signed HPI HPI History of Present Illness Details: Pleasant gentleman who presented to the emergency room in January of this year complaining of a right lower extremity discomfort. He does have a family history of deep vein thrombosis and upon his insistence an ultrasound was performed which demonstrated an acute deep vein thrombosis noted in the right popliteal vein as well as deep vein thrombosis in the right tibioperoneal trunk. He was put on Eliquis and discharged. He says that over the last few weeks and months he has noticed some irregular heartbeat occasional shortness of breath and an unusual feeling in his chest. He did present again in March of this year and underwent a CT of his chest there was no evidence of pulmonary embolism. He has also seen the hand worker who is working up this DVT. He has not had any nhi syncopal episodes and no nausea or diaphoresis. He does have some fatigue. He tells me that he is getting ready to retire and he does have some concern. His latest lipid profile demonstrates total cholesterol 190 HDL of 88 and LDL of 100. His physical exam is unremarkable and his electrocardiogram demonstrates sinus rhythm with a rate of 66 bpm and no acute changes. Intake Vital Signs 04/20/25 15:37 05/19/25 11:14 05/27/25 09:31 Height 5 ft 10 in 5 ft 10 in 5 ft 10 in Weight: 175 lb 8 oz 181 lb BMI 25.2 25.9 BP 124/80 H 116/77 Blood Pressure Location Rt brachial Lt brachial Position Sitting Sitting Respiration 18 14 Pulse 51 L 65 Pulse Source Monitor Monitor Temp 98.2 F Temperature Source Temporal Artery Pulse Oximetry (%) 100 Oxygen Delivery Method room air Intake Visit Reasons: PALPS/DVT (PRAH) [employer] Assistant Required: No Accompanied by: Self Is patient in pain?: No Allergies No Known Allergies Allergy (Verified 05/27/25 09:35) Medications ???Medication ???Instructions ???Recorded ???Confirmed ???Type sulfacetamide sodium 10 % topical 1 applic topical QDAY 03/05/25 History cleanser apixaban 5 mg tablet (Eliquis) 5 mg PO BID #60 tabs 05/19/2505/12 Rx PFSH Medical History Paresthesia Cardiac arrhythmia Acute embolism and thrombosis of unspecified deep veins of right lower extremity Fatigue SOB (shortness of breath) Palpitations Back pain Surgical History Hx of prostate biopsy History of back surgery Family History Mother Colon cancer Pancreatic cancer Blood clotting disorder Sister Blood clotting disorder Brother Blood clotting disorder Social History Smoking Status: Former smoker alcohol intake: current Alcohol type: beer substance use type: does not use ROS Const Const: Positive for headache(s); Negative for fatigue, weakness, daytime sleepiness or difficulty sleeping ENT ENT: Positive for headache(s); Negative for dizziness or Nosebleed/epistaxis Cardio Chest Pain: No Palpitations: Yes feels like its: irregular Edema: Bilateral (BLE R>1) Resp Respiratory: Positive for SOB at rest (hard to take a deep breath); Negative for SOB with activity, SOB orthopnea SOB lying down or Cough GI GI: Positive for heartburn; Negative nausea or vomiting Neuro Neuro: Positive for headache(s); Negative for dizziness, lightheadedness, near syncope or weakness Endo Endo: Negative for fatigue Cardiology Exam Const Appearance: cooperative, healthy appearing, no acute distress, well developed and well groomed Nutritional Appearance: average body habitus and well nourished Orientation: alert, awake and oriented x3 Head Head: normal to inspection, normocephalic and atraumatic Ears: hearing grossly normal bilaterally and external ears normal Nose: external nose normal, nares normal, nasal mucous membranes and turbinates normal, septum normal and no nasal discharge Face and Sinus: face symmetric Mouth: oral mucosae normal, tongue normal, oropharynx normal and moist mucous membranes Teeth and gingiva: dentition normal Throat: posterior oropharynx normal, tonsils normal and uvula midline Eyes General: appearance normal, both eyes and all related structures Eyelids: eyelids normal Conjunctivae: conjunctivae normal Pupils: PERRL, normal by confrontation and accommodation normal EOM: EOM intact bilaterally Neck Neck: normal visual inspection, trachea (more content not included)... Normal [facility] Thyroid Stim Hormone (TSH)on 05-27-2025 TSH 1.380 uIU/mL Normal 0.300-4.200 [facility] Comment on above: Performed By: #### L 501.9520 #### [facility] [address] [place] [address]. [place], [address] Absolute lymphocyte countOrd ered By: Anthony Medina on 05-19-2025 Lymphocytes Auto (Unsp spec) [#/Vol] 2.37 10*3/uL 0.83-4.51 [facility] Absolute neutrophil countOrd ered By: Anthony Medina on 05-19-2025 Neutrophils (Bld) [#/Vol] 3.4 10*3/uL 2.0-7.7 [facility] Activated partial thrombopla stin time (aPTT) in platelet poor plasma by coagulation aOrdered By: Anthony Medina on 05-19-2025 aPTT Coag (PPP) [Time] 28.5 s 24.1-36.2 [facility] Anion gap in Serum or Plasma Ordered By: Anthony Medina on 05-19-2025 Anion gap [Moles/Vol] 9 mmol/L 5-15 [facility] Automated lymphocyte count a s percentage of total leukocytesOrdered By: Anthony Medina on 05-19-2025 Lymphocytes/100 WBC Auto (Unsp spec) 36.7 % 19-41 [facility] BUN/creatinine ratioOrdered By: Anthony Medina on 05-19-2025 Urea nitrogen/Creatinine [Mass ratio] 16.3 mg/mg 10-20 [facility] Basophil percentageOrdered B y: Anthony Medina on 05-19-2025 Basophils/100 WBC (Bld) 0.5 % 0-1 [facility] Bilirubin, totalOrdered By: Anthony Medina on 05-19-2025 Bilirubin [Mass/Vol] 0.66 mg/dL 0.00-1.30 [facility] CBC W/Diff, Automatedon 07 Absolute Lymph 2.37 X10 3/uL Normal 0.83-4.51 [facility] Comment on above: Performed By: #### L 500.4050, M100.7900, L500.4100, L100.0100, L501.9910, L400.2010 #### [facility] [address] [place], [address] Absolute Neut 3.4 X10 3/uL Normal 2.0-7.7 [facility] Comment on above: Performed By: #### L 500.4050, M100.7900, L500.4100, L100.0100, L501.9910, L400.2010 #### [facility] [address] [place], [address] Basophils/100 WBC (Bld) 0.5 % Normal 0-1 [facility] Comment on above: Performed By: #### L 500.4050, M100.7900, L500.4100, L100.0100, L501.9910, L400.2010 #### [facility] [address] [place], [address] Eosinophils/100 WBC (Bld) 1.5 % Normal 0-5 [facility] Comment on above: Performed By: #### L 500.4050, M100.7900, L500.4100, L100.0100, L501.9910, L400.2010 #### [facility] [address] [place], [address] Erythrocyte distribution width (RBC) [Ratio] 12.8 % Normal 11.6-14.6 [facility] Comment on above: Performed By: #### L 500.4050, M100.7900, L500.4100, L100.0100, L501.9910, L400.2010 #### [facility] [address] [place], [address] Hematocrit (Bld) [Volume fraction] 44.4 % Normal 40-54 [facility] Comment on above: Performed By: #### L 500.4050, M100.7900, L500.4100, L100.0100, L501.9910, L400.2010 #### [facility] [address] [facility] [place], [address] Hemoglobin (Bld) [Mass/Vol] 15.8 g/dL Normal 13.0-16.5 [facility] Comment on above: Performed By: #### L 500.4050, M100.7900, L500.4100, L100.0100, L501.9910, L400.2010 #### [facility] [address] [place], [address] IG% 0.300 Normal 0.0-0.9 [facility] Comment on above: Result Comment: IG% - Immature Granulocytes (promyelocytes, myelocytes and metamyelocytes) > 1% indicates that a LEFT SHIFT is Present. Performed By: #### L 500.4050, M100.7900, L500.4100, L100.0100, L501.9910, L400.2010 #### [facility] [address] [place], [address] Lymphocytes/100 WBC (Bld) 36.7 % Normal 19-41 [facility] Comment on above: Performed By: #### L 500.4050, M100.7900, L500.4100, L100.0100, L501.9910, L400.2010 #### [facility] [address] [place], [address] MCH (RBC) [Entitic mass] 33.8 pg High 27.0-32.0 [facility] Comment on above: Performed By: #### L 500.4050, M100.7900, L500.4100, L100.0100, L501.9910, L400.2010 #### [facility] [address] [place], [address] MCHC (RBC) [Mass/Vol] 35.6 g/dL Normal 32-36 [facility] Comment on above: Performed By: #### L 500.4050, M100.7900, L500.4100, L100.0100, L501.9910, L400.2010 #### [facility] [address] [place], [address] MCV (RBC) [Entitic vol] 94.9 fL High 80-94 [facility] Comment on above: Performed By: #### L 500.4050, M100.7900, L500.4100, L100.0100, L501.9910, L400.2010 #### [facility] [address] [place], [address] Monocytes/100 WBC (Bld) 8.2 % Normal 0-10 [facility] Comment on above: Performed By: #### L 500.4050, M100.7900, L500.4100, L100.0100, L501.9910, L400.2010 #### [facility] [address] [place], [address] Neutrophils/100 WBC (Bld) 52.8 % Normal 47-70 [facility] Comment on above: Performed By: #### L 500.4050, M100.7900, L500.4100, L100.0100, L501.9910, L400.2010 #### [facility] [address] [place], [address] Nucleated RBC (Bld) [#/Vol] 0 10*3/uL Normal 0-5 [facility] Comment on above: Performed By: #### L 500.4050, M100.7900, L500.4100, L100.0100, L501.9910, L400.2010 #### [facility] [address] [place], [address] Platelet mean volume (Bld) [Entitic vol] 9.2 fL Normal 6.2-12.0 [facility] Comment on above: Performed By: #### L 500.4050, M100.7900, L500.4100, L100.0100, L501.9910, L400.2010 #### [facility] [address] [place], [address] Platelets (Bld) [#/Vol] 267 10*3/uL Normal 150-450 [facility] Comment on above: Performed By: #### L 500.4050, M100.7900, L500.4100, L100.0100, L501.9910, L400.2010 #### [facility] [address] [place], [address] RBC (Bld) [#/Vol] 4.68 10*6/uL Normal 4.6-6.2 [facility] Comment on above: Performed By: #### L 500.4050, M100.7900, L500.4100, L100.0100, L501.9910, L400.2010 #### [facility] [address] [place], [address] RDW SD 44.3 fl High 35.1-43.9 [facility] Comment on above: Performed By: #### L 500.4050, M100.7900, L500.4100, L100.0100, L501.9910, L400.2010 #### [facility] [address] [place], [address] WBC (Bld) [#/Vol] 6.5 10*3/uL Normal 4.4-11.0 [facility] Comment on above: Performed By: #### L 500.4050, M100.7900, L500.4100, L100.0100, L501.9910, L400.2010 #### [facility] [address] [place], [address] Carbon dioxide, total [Moles /volume] in Central venous bloodOrdered By: Anthony Medina on 05-19-2025 CO2 [Moles/Vol] 24.1 mmol/L 21.0-32.0 [facility] Chloride assayOrdered By: Gila Medina on 05-19-2025 Chloride [Moles/Vol] 104 mmol/L 98-108 [facility] Comprehensive Metabolic Prof ilon 05-19-2025 Albumin [Mass/Vol] 4.4 g/dL Normal 3.5-5.0 [facility] Comment on above: Performed By: #### L 500.4050, M100.7900, L500.4100, L100.0100, L501.9910, L400.2010 #### [facility] [address] [place], [address] Albumin/Globulin [Mass ratio] 1.7 {ratio} Normal 0.9-2.4 [facility] Comment on above: Performed By: #### L 500.4050, M100.7900, L500.4100, L100.0100, L501.9910, L400.2010 #### [facility] [address] [place], [address] ALK PHOS 53 U/L Normal 40-129 [facility] Comment on above: Performed By: #### L 500.4050, M100.7900, L500.4100, L100.0100, L501.9910, L400.2010 #### [facility] [address] [place], [address] ALT [Catalytic activity/Vol] 18 U/L Normal <=46 [facility] Comment on above: Performed By: #### L 500.4050, M100.7900, L500.4100, L100.0100, L501.9910, L400.2010 #### [facility] [address] [place], [address] AST [Catalytic activity/Vol] 26 U/L Normal <=37 [facility] Comment on above: Performed By: #### L 500.4050, M100.7900, L500.4100, L100.0100, L501.9910, L400.2010 #### [facility] [address] [place], [address] Bilirubin [Mass/Vol] 0.66 mg/dL Normal 0.00-1.30 [facility] Comment on above: Performed By: #### L 500.4050, M100.7900, L500.4100, L100.0100, L501.9910, L400.2010 #### [facility] [address] [place], [address] BUN/CRE 16.3 RATIO Normal 10-20 [facility] Comment on above: Performed By: #### L 500.4050, M100.7900, L500.4100, L100.0100, L501.9910, L400.2010 #### [facility] [address] [place], [address] Calcium [Mass/Vol] 9.0 mg/dL Normal 7.6-11.0 [facility] Comment on above: Performed By: #### L 500.4050, M100.7900, L500.4100, L100.0100, L501.9910, L400.2010 #### [facility] [address] [place], [address] Chloride [Moles/Vol] 104 mmol/L Normal 98-108 [facility] Comment on above: Performed By: #### L 500.4050, M100.7900, L500.4100, L100.0100, L501.9910, L400.2010 #### [facility] [address] [place], [address] CO2 [Moles/Vol] 24.1 mmol/L Normal 21.0-32.0 [facility] Comment on above: Performed By: #### L 500.4050, M100.7900, L500.4100, L100.0100, L501.9910, L400.2010 #### [facility] [address] [place], [address] Creatinine [Mass/Vol] 0.94 mg/dL Normal 0.70-1.20 [facility] Comment on above: Performed By: #### L 500.4050, M100.7900, L500.4100, L100.0100, L501.9910, L400.2010 #### [facility] [address] [place], [address] GAP 9 Normal 5-15 [facility] Comment on above: Performed By: #### L 500.4050, M100.7900, L500.4100, L100.0100, L501.9910, L400.2010 #### [facility] [address] [place], [address] GFR/1.73 sq M.predicted among non-blacks MDRD (S/P/Bld) [Vol rate/Area] 96 mL/min/{1.73_m2} Normal >60 [facility] Comment on above: Result Comment: mL/m in/1.73m2 CKD-EPI Creatinine Equation (2020) Performed By: #### L 500.4050, M100.7900, L500.4100, L100.0100, L501.9910, L400.2010 #### [facility] [address] [place], [address] Globulin (S) [Mass/Vol] 2.6 g/dL Normal 2.2-4.2 [facility] Comment on above: Performed By: #### L 500.4050, M100.7900, L500.4100, L100.0100, L501.9910, L400.2010 #### [facility] [address] [place], [address] Glucose [Mass/Vol] 85 mg/dL Normal 70-99 [facility] Comment on above: Performed By: #### L 500.4050, M100.7900, L500.4100, L100.0100, L501.9910, L400.2010 #### [facility] [address] [place], [address] Potassium [Moles/Vol] 4.0 mmol/L Normal 3.3-5.1 [facility] Comment on above: Performed By: #### L 500.4050, M100.7900, L500.4100, L100.0100, L501.9910, L400.2010 #### [facility] [address] [place], [address] Sodium [Moles/Vol] 137 mmol/L Normal 133-145 [facility] Comment on above: Performed By: #### L 500.4050, M100.7900, L500.4100, L100.0100, L501.9910, L400.2010 #### [facility] [address] [place], [address] T PROT 6.9 g/dL Normal 5.9-8.4 [facility] Comment on above: Performed By: #### L 500.4050, M100.7900, L500.4100, L100.0100, L501.9910, L400.2010 #### [facility] [address] [place], [place], [address] Urea nitrogen [Mass/Vol] 15 mg/dL Normal 4-19 [facility] Comment on above: Performed By: #### L 500.4050, M100.7900, L500.4100, L100.0100, L501.9910, L400.2010 #### [facility] [address] [place], [address] D-Dimer Quantitative (DVT/PE )on 05-19-2025 D-DIMER QUANT 0.50 FEU/ug/m High 0.27-0.49 [facility] Comment on above: Result Comment: D-Di abhilash ELEVATED (>0.49): Additional studies and clinical assessments are indicated to conclude diagnosis of: Deep Vein Thrombosis (DVT) or Pulmonary Embolism (PE) Performed By: #### L 500.4050, M100.7900, L500.4100, L100.0100, L501.9910, L400.2010 #### [facility] [address] [place], [address] Eosinophil percentageOrdered By: Anthony Medina on 05-19-2025 Eosinophils/100 WBC (Bld) 1.5 % 0-5 [facility] Erythrocyte distribution wid th ratioOrdered By: Anthony Medina on 05-19-2025 Erythrocyte distribution width (RBC) [Ratio] 12.8 % 11.6-14.6 [facility] Erythrocyte distribution wid th standard deviationOrdered By: Anthony Medina on 05-19-2025 Erythrocyte distribution width (RBC) [Ratio] 44.3 fl High 35.1-43.9 [facility] Glomerular filtration rate ( GFR) estimation/1.73 sq m using serum, plasma, or whole bOrdered By: Anthony Medina on 05-19-2025 GFR/1.73 sq M.predicted among non-blacks MDRD (S/P/Bld) [Vol rate/Area] 96 mL/min/{1.73_m2} >60 [facility] Comment on above: mL/min/1.73m2 CKD-EP I Creatinine Equation (2020) Hematocrit Auto (Bld) [Volum e fraction]Ordered By: Anthony Medina on 05-19-2025 Hematocrit (Bld) [Volume fraction] 44.4 % 40-54 [facility] Hemoglobin measurementOrdere d By: Anthony Medina on 05-19-2025 Hemoglobin (Bld) [Mass/Vol] 15.8 g/dL 13.0-16.5 [facility] Immature granulocytes/100 WB C Auto (Bld)Ordered By: Anthony Medina on 05-19-2025 Immature granulocytes/100 WBC (Bld) 0.300 % 0.0-0.9 [facility] Comment on above: IG% - Immature Granu locytes (promyelocytes, myelocytes and metamyelocytes) > 1% indicates that a LEFT SHIFT is Present. International normalized rat io (INR) calculationOrdered By: Anthony Medina on 05-19-2025 INR Coag (Bld) [Relative time] 1.2 {INR} [facility] LDHon 05-19-2025 LDH 201 U/L Normal 87-241 [facility] Comment on above: Order Comment: 1 Performed By: #### L 500.4050, M100.7900, L500.4100, L100.0100, L501.9910, L400.2010 #### [facility] [place], [address] Laboratory - Chemistry and C hemistry - challengeOrdered By: Anthony Medina on 05-19-2025 AST [Catalytic activity/Vol] 26 U/L <38 [facility] Lactate dehydrogenase (LDH) measurementOrdered By: Anthony Medina on 05-19-2025 LDH [Catalytic activity/Vol] 201 U/L 87-241 [facility] MCV (mean corpuscular volume ) determinationOrdered By: Anthony Medina on 05-19-2025 MCV (RBC) [Entitic vol] 94.9 fL High 80-94 [facility] Mean corpuscular hemoglobin (MCH) determinationOrdered By: Anthony Medina on 05-19-2025 MCH (RBC) [Entitic mass] 33.8 pg High 27.0-32.0 [facility] Mean corpuscular hemoglobin concentration (MCHC) determinationOrdered By: Anthony Medina on 05-19-2025 MCHC (RBC) [Mass/Vol] 35.6 g/dL 32-36 [facility] Mean platelet volume determi nationOrdered By: Anthony Medina on 05-19-2025 Platelet mean volume (Bld) [Entitic vol] 9.2 fL 6.2-12.0 [facility] Monocyte percentageOrdered B y: Anthony Medina on 05-19-2025 Monocytes/100 WBC (Bld) 8.2 % 0-10 [facility] Neutrophil percentageOrdered By: Anthony Medina on 05-19-2025 Neutrophils/100 WBC (Bld) 52.8 % 47-70 [facility] Nucleated red blood cell per centageOrdered By: Anthony Medina on 05-19-2025 Nucleated RBC/100 WBC (Bld) [Ratio] 0 % 0-5 [facility] Oncology Visit Reporton Oncology Visit Report [facility] [address] [place] [address] OFFICE VISIT Date of Service: 05/19/25 1112 MR#: [id number] Acct: [id number] Name: SHARA DELEON Rep #: [id number] : 1970 From: Anthony Medina MD Age/Sex: 54/M Location: [facility] Status: Signed HPI Subjective Date of Service 05/19/25 Chief Complaint F/u for DVT History of Present Illness 54-year-old man Presented with right leg pain in January 2025. Doppler study on 01/28/2025 showed acute DVT in right popliteal vein, right tibial peroneal trunk, right peroneal nail vein, right soleus vein. He was started on Eliquis and currently on 5 mg p.o. twice daily. He was referred because of the strong family history of clotting. Had D-dimers and comes for follow up. Feels well, gets pain in the legs when he stands for a long time. [facility] Medical History Paresthesia Cardiac arrhythmia Acute embolism and thrombosis of unspecified deep veins of right lower extremity Fatigue SOB (shortness of breath) Palpitations Back pain Surgical History Hx of prostate biopsy History of back surgery Family History Mother Colon cancer Pancreatic cancer Blood clotting disorder Sister Blood clotting disorder Brother Blood clotting disorder Social History Smoking Status: Former smoker alcohol intake: current Alcohol type: beer substance use type: does not use Intake Vital Signs 04/20/25 15:37 05/19/25 11:14 Height 5 ft 10 in 5 ft 10 in Weight: 79.605 kg BMI 25.2 BP 124/80 H Blood Pressure Location Rt brachial Position Sitting Respiration 18 Pulse 51 L Pulse Source Monitor Temp 98.2 F Temperature Source Temporal Artery Pulse Oximetry (%) 100 Oxygen Delivery Method room air Intake Accompanied by: Self Is patient in pain?: No Allergies No Known Allergies Allergy (Verified 05/19/25 11:16) Medications ???Medication ???Instructions ???Recorded ???Confirmed ???Type sulfacetamide sodium 10 % topical 1 applic topical QDAY 03/05/25 History cleanser apixaban 5 mg tablet (Eliquis) 5 mg PO BID #60 tabs 05/19/2507/06 Rx Central Venous Access Central Venous Access: No Laboratory Tests 05/19/25 10:22 WBC 6.5 Hgb 15.8 Hct 44.4 Plt Count 267 D-Dimer Quant (PE/DVT) 0.50 H Exam Physical Exam Const alert, oriented x3 and no apparent distress Extremity no clubbing, cyanosis or edema Coding Level of Care Code Off vis,est,level 3 Exam Problem Focused Diagnoses Acute deep vein thrombosis (DVT) of popliteal vein of right lower extremity I82.431 DVT location: lower extremity Affected thrombotic vein of extremity: popliteal Chronicity: acute Laterality: right Assessment and Plan Assessment and Plan (1) Deep vein thrombosis (DVT): Qualifiers: DVT location: lower extremity Affected thrombotic vein of extremity: popliteal Chronicity: acute Laterality: right Qualified Code(s): I82.431 - Acute embolism and thrombosis of right popliteal vein Plan: D-dimers are slightly elevated. To continue Eliquis 5mg bid. RTC 2 month with d-dimers. Medications: New apixaban (Eliquis) 5 mg PO BID 60 tabs 3RF Plan Details Follow Up: 2 Months 05/19/25 1133 Date Anthony Rodriguez Signature: Date (if applicable) CC: Samuel RICE [employer] APPRENTICE-C Beam Normal [facility] Partial Thromboplast Timeon 05-19-2025 aPTT Coag (Bld) [Time] 28.5 s Normal 24.1-36.2 [facility] Comment on above: Performed By: #### L 500.4050, M100.7900, L500.4100, L100.0100, L501.9910, L400.2010 #### [facility] [address] [place], [place], [id number] Platelet countOrdered By: Gila Meidna on 05-19-2025 Platelets (Bld) [#/Vol] 267 10*3/uL 150-450 [facility] Potassium measurement (mass/ volume)Ordered By: Anthony Medina on 05-19-2025 Potassium (Unsp spec) [Mass/Vol] 4.0 mmol/L 3.3-5.1 [facility] Prothrombin Time w/INRon INR Coag (PPP) [Relative time] 1.2 {INR} Normal [facility] Comment on above: Performed By: #### L 500.4050, M100.7900, L500.4100, L100.0100, L501.9910, L400.2010 #### [facility] [address] [place], [place], [id number] PT Coag (PPP) [Time] 15.5 s High 11.7-14.9 [facility] Comment on above: Performed By: #### L 500.4050, M100.7900, L500.4100, L100.0100, L501.9910, L400.2010 #### [facility] [address] [place], [place], [id number] Prothrombin timeOrdered By: Anthony Medina on 05-19-2025 PT Coag (PPP) [Time] 15.5 s High 11.7-14.9 [facility] RBC Auto (Bld) [#/Vol]Ordere d By: Anthony Medina on 05-19-2025 RBC (Bld) [#/Vol] 4.68 10*6/uL 4.6-6.2 [facility] Serum creatinine measurement (mass/volume)Ordered By: Anthony Medina on 05-19-2025 Creatinine [Mass/Vol] 0.94 mg/dL 0.70-1.20 [facility] Serum globulin measurementOr dered By: Anthony Medina on 05-19-2025 Globulin (S) [Mass/Vol] 2.6 g/dL 2.2-4.2 [facility] Serum glucose measurement (m ass/volume)Ordered By: Anthony Medina on 05-19-2025 Glucose [Mass/Vol] 85 mg/dL 70-99 [facility] Serum or plasma alanine rivas otransferase (ALT) measurementOrdered By: Anthony Medina on 05-19-2025 ALT [Catalytic activity/Vol] 18 U/L <47 [facility] Serum or plasma albumin amrit urement (mass/volume)Ordered By: Anthony Medina on 05-19-2025 Albumin [Mass/Vol] 4.4 g/dL 3.5-5.0 [facility] Serum or plasma albumin/glob ulin mass ratioOrdered By: Anthony Medina on 05-19-2025 Albumin/Globulin [Mass ratio] 1.7 {ratio} 0.9-2.4 [facility] Serum or plasma alkaline monet sphatase measurementOrdered By: Anthony Medina on 05-19-2025 ALP [Catalytic activity/Vol] 53 U/L 40-129 [facility] Serum or plasma calcium amrit urement (mass/volume)Ordered By: Anthony Medina on 05-19-2025 Calcium [Mass/Vol] 9.0 mg/dL 7.6-11.0 [facility] Serum or plasma urea nitroge n measurement (mass/volume)Ordered By: Anthony Medina on 05-19-2025 Urea nitrogen [Mass/Vol] 15 mg/dL 4-19 [facility] Sodium levelOrdered By: Jair Medina on 05-19-2025 Sodium [Moles/Vol] 137 mmol/L 133-145 [facility] Total proteinOrdered By: Donovan Medina on 05-19-2025 Protein [Mass/Vol] 6.9 g/dL 5.9-8.4 [facility] White blood cell (WBC) count Ordered By: Anthony Medina on 05-19-2025 WBC (Bld) [#/Vol] 6.5 10*3/uL 4.4-11.0 [facility] CBC W/Diff, Automatedon 06-0 Absolute Lymph 2.52 X10 3/uL Normal 0.83-4.51 [facility] Comment on above: Performed By: #### L 500.4050, L504.2610, L300.4310, L100.0100, L300.8000, L300.3900 #### [facility] [address] [facility] [place], [place], [id number] ([address] Absolute Neut 5.1 X10 3/uL Normal 2.0-7.7 [facility] Comment on above: Performed By: #### L 500.4050, L504.2610, L300.4310, L100.0100, L300.8000, L300.3900 #### [facility] [address] [place], [address] Basophils/100 WBC (Bld) 0.5 % Normal 0-1 [facility] Comment on above: Performed By: #### L 500.4050, L504.2610, L300.4310, L100.0100, L300.8000, L300.3900 #### [facility] [address] [place], [address] Eosinophils/100 WBC (Bld) 0.9 % Normal 0-5 [facility] Comment on above: Performed By: #### L 500.4050, L504.2610, L300.4310, L100.0100, L300.8000, L300.3900 #### [facility] [address] [place], [address] Erythrocyte distribution width (RBC) [Ratio] 13.0 % Normal 11.6-14.6 [facility] Comment on above: Performed By: #### L 500.4050, L504.2610, L300.4310, L100.0100, L300.8000, L300.3900 #### [facility] [address] [place], [address] Hematocrit (Bld) [Volume fraction] 43.7 % Normal 40-54 [facility] Comment on above: Performed By: #### L 500.4050, L504.2610, L300.4310, L100.0100, L300.8000, L300.3900 #### [facility] [address] [place], [address] Hemoglobin (Bld) [Mass/Vol] 15.5 g/dL Normal 13.0-16.5 [facility] Comment on above: Performed By: #### L 500.4050, L504.2610, L300.4310, L100.0100, L300.8000, L300.3900 #### [facility] [address] [place], [address] IG% 0.200 Normal 0.0-0.9 [facility] Comment on above: Result Comment: IG% - Immature Granulocytes (promyelocytes, myelocytes and metamyelocytes) > 1% indicates that a LEFT SHIFT is Present. Performed By: #### L 500.4050, L504.2610, L300.4310, L100.0100, L300.8000, L300.3900 #### [facility] [address] [place], [address] Lymphocytes/100 WBC (Bld) 29.5 % Normal 19-41 [facility] Comment on above: Performed By: #### L 500.4050, L504.2610, L300.4310, L100.0100, L300.8000, L300.3900 #### [facility] [address] [place], [address] MCH (RBC) [Entitic mass] 33.3 pg High 27.0-32.0 [facility] Comment on above: Performed By: #### L 500.4050, L504.2610, L300.4310, L100.0100, L300.8000, L300.3900 #### [facility] [address] [place], [address] MCHC (RBC) [Mass/Vol] 35.5 g/dL Normal 32-36 [facility] Comment on above: Performed By: #### L 500.4050, L504.2610, L300.4310, L100.0100, L300.8000, L300.3900 #### [facility] [address] [place], [address] MCV (RBC) [Entitic vol] 94.0 fL Normal 80-94 [facility] Comment on above: Performed By: #### L 500.4050, L504.2610, L300.4310, L100.0100, L300.8000, L300.3900 #### [facility] [address] [place], [address] Monocytes/100 WBC (Bld) 8.8 % Normal 0-10 [facility] Comment on above: Performed By: #### L 500.4050, L504.2610, L300.4310, L100.0100, L300.8000, L300.3900 #### [facility] [address] [place], [address] Neutrophils/100 WBC (Bld) 60.1 % Normal 47-70 [facility] Comment on above: Performed By: #### L 500.4050, L504.2610, L300.4310, L100.0100, L300.8000, L300.3900 #### [facility] [address] [place], [address] Nucleated RBC (Bld) [#/Vol] 0 10*3/uL Normal 0-5 [facility] Comment on above: Performed By: #### L 500.4050, L504.2610, L300.4310, L100.0100, L300.8000, L300.3900 #### [facility] [address] [place], [address] Platelet mean volume (Bld) [Entitic vol] 9.1 fL Normal 6.2-12.0 [facility] Comment on above: Performed By: #### L 500.4050, L504.2610, L300.4310, L100.0100, L300.8000, L300.3900 #### [facility] [address] [place], [address] Platelets (Bld) [#/Vol] 252 10*3/uL Normal 150-450 [facility] Comment on above: Performed By: #### L 500.4050, L504.2610, L300.4310, L100.0100, L300.8000, L300.3900 #### [facility] [address] [place], [address] RBC (Bld) [#/Vol] 4.65 10*6/uL Normal 4.6-6.2 [facility] Comment on above: Performed By: #### L 500.4050, L504.2610, L300.4310, L100.0100, L300.8000, L300.3900 #### [facility] [address] [place], [address] RDW SD 44.5 fl High 35.1-43.9 [facility] Comment on above: Performed By: #### L 500.4050, L504.2610, L300.4310, L100.0100, L300.8000, L300.3900 #### [facility] [address] [place], [address] WBC (Bld) [#/Vol] 8.5 10*3/uL Normal 4.4-11.0 [facility] Comment on above: Performed By: #### L 500.4050, L504.2610, L300.4310, L100.0100, L300.8000, L300.3900 #### [facility] [address] [place], [address] Comprehensive Metabolic Prof nhon 04-20-2025 Albumin [Mass/Vol] 4.3 g/dL Normal 3.5-5.0 [facility] Comment on above: Performed By: #### L 500.4050, L504.2610, L300.4310, L100.0100, L300.8000, L300.3900 #### [facility] [address] [place], [address] Albumin/Globulin [Mass ratio] 1.7 {ratio} Normal 0.9-2.4 [facility] Comment on above: Performed By: #### L 500.4050, L504.2610, L300.4310, L100.0100, L300.8000, L300.3900 #### [facility] [address] [place], [address] ALK PHOS 51 U/L Normal 40-129 [facility] Comment on above: Performed By: #### L 500.4050, L504.2610, L300.4310, L100.0100, L300.8000, L300.3900 #### [facility] [address] [place], [address] ALT [Catalytic activity/Vol] 19 U/L Normal <=46 [facility] Comment on above: Performed By: #### L 500.4050, L504.2610, L300.4310, L100.0100, L300.8000, L300.3900 #### [facility] [address] [place], [address] AST [Catalytic activity/Vol] 28 U/L Normal <=37 [facility] Comment on above: Performed By: #### L 500.4050, L504.2610, L300.4310, L100.0100, L300.8000, L300.3900 #### [facility] [address] [place], [address] Bilirubin [Mass/Vol] 0.35 mg/dL Normal 0.00-1.30 [facility] Comment on above: Performed By: #### L 500.4050, L504.2610, L300.4310, L100.0100, L300.8000, L300.3900 #### [facility] [address] [place], [address] BUN/CRE 15.2 RATIO Normal 10-20 [facility] Comment on above: Performed By: #### L 500.4050, L504.2610, L300.4310, L100.0100, L300.8000, L300.3900 #### [facility] [address] [place], [address] Calcium [Mass/Vol] 9.2 mg/dL Normal 7.6-11.0 [facility] Comment on above: Performed By: #### L 500.4050, L504.2610, L300.4310, L100.0100, L300.8000, L300.3900 #### [facility] [address] [place], [address] Chloride [Moles/Vol] 109 mmol/L High 98-108 [facility] Comment on above: Performed By: #### L 500.4050, L504.2610, L300.4310, L100.0100, L300.8000, L300.3900 #### [facility] [address] [place], [address] CO2 [Moles/Vol] 23.8 mmol/L Normal 21.0-32.0 [facility] Comment on above: Performed By: #### L 500.4050, L504.2610, L300.4310, L100.0100, L300.8000, L300.3900 #### [facility] [address] [place], [address] Creatinine [Mass/Vol] 1.08 mg/dL Normal 0.70-1.20 [facility] Comment on above: Performed By: #### L 500.4050, L504.2610, L300.4310, L100.0100, L300.8000, L300.3900 #### [facility] [address] [place], [address] GAP 9 Normal 5-15 [facility] Comment on above: Performed By: #### L 500.4050, L504.2610, L300.4310, L100.0100, L300.8000, L300.3900 #### [facility] [address] [place], [address] GFR/1.73 sq M.predicted among non-blacks MDRD (S/P/Bld) [Vol rate/Area] 82 mL/min/{1.73_m2} Normal >60 [facility] Comment on above: Result Comment: mL/m in/1.73m2 CKD-EPI Creatinine Equation (2020) Performed By: #### L 500.4050, L504.2610, L300.4310, L100.0100, L300.8000, L300.3900 #### [facility] [address] [place], [address] Globulin (S) [Mass/Vol] 2.5 g/dL Normal 2.2-4.2 [facility] Comment on above: Performed By: #### L 500.4050, L504.2610, L300.4310, L100.0100, L300.8000, L300.3900 #### [facility] [address] [place], [address] Glucose [Mass/Vol] 114 mg/dL High 70-99 [facility] Comment on above: Performed By: #### L 500.4050, L504.2610, L300.4310, L100.0100, L300.8000, L300.3900 #### [facility] [address] [place], [address] Potassium [Moles/Vol] 3.8 mmol/L Normal 3.3-5.1 [facility] Comment on above: Performed By: #### L 500.4050, L504.2610, L300.4310, L100.0100, L300.8000, L300.3900 #### [facility] [address] [place], [address] Sodium [Moles/Vol] 142 mmol/L Normal 133-145 [facility] Comment on above: Performed By: #### L 500.4050, L504.2610, L300.4310, L100.0100, L300.8000, L300.3900 #### [facility] [address] [place], [address] T PROT 6.9 g/dL Normal 5.9-8.4 [facility] Comment on above: Performed By: #### L 500.4050, L504.2610, L300.4310, L100.0100, L300.8000, L300.3900 #### [facility] [address] [place], [address] Urea nitrogen [Mass/Vol] 16 mg/dL Normal 4-19 [facility] Comment on above: Performed By: #### L 500.4050, L504.2610, L300.4310, L100.0100, L300.8000, L300.3900 #### [facility] [address] [place], [address] D-Dimer Quantitative (DVT/PE )on 04-20-2025 D-DIMER QUANT 0.44 FEU/ug/m Normal 0.27-0.49 [facility] Comment on above: Result Comment: NORM AL D-Dimer level (<0.50) indicates no DVT or PE. Performed By: #### L 500.4050, M100.7900, L500.4100, L100.0100, L501.9910, L400.2010 #### [facility] [address] [place], [address] LDHon 04-20-2025 LDH 192 U/L Normal 87-241 [facility] Comment on above: Order Comment: 1 Performed By: #### L 500.4050, L504.2610, L300.4310, L100.0100, L300.8000, L300.3900 #### [facility] [address] [place], [address] Oncology Visit Reporton Oncology Visit Report [facility] [address] [place] [address] OFFICE VISIT Date of Service: 04/20/25 1533 MR#: [id number] Acct: [id number] Name: SHARA DELEON Rep #: [id number] : 1970 From: Anthony Medina MD Age/Sex: 54/M Location: [facility] Status: Signed HPI Subjective Date of Service 04/20/25 Chief Complaint Referred for DVT History of Present Illness 54-year-old man Presented with right leg pain in January 2025. Doppler study on 01/28/2025 showed acute DVT in right popliteal vein, right tibial peroneal trunk, right peroneal nail vein, right soleus vein. He was started on Eliquis and currently on 5 mg p.o. twice daily. He is now referred because of the strong family history of clotting. [facility] Medical History Back pain Limb weakness Surgical History Hx of prostate biopsy History of back surgery Family History Mother Colon cancer Pancreatic cancer Blood clotting disorder Sister Blood clotting disorder Brother Blood clotting disorder Social History Smoking Status: Never smoker alcohol intake: current Alcohol type: beer substance use type: does not use Intake Vital Signs 01/28/25 11:59 04/08/25 07:05 04/20/25 15:35 04/20/25 15:37 Height 5 ft 10 in 5 ft 10 in 5 ft 10 in 5 ft 10 in Weight: 80.513 kg BMI 25.4 BP 106/67 Blood Pressure Location Lt brachial Position Sitting Respiration 18 Pulse 66 Pulse Source Monitor Temp 98.1 F Temperature Source Temporal Artery Pulse Oximetry (%) 96 Oxygen Delivery Method room air Intake Is patient in pain?: No Allergies No Known Allergies Allergy (Verified 04/20/25 15:33) Medications ???Medication ???Instructions ???Recorded ???Confirmed ???Type sulfacetamide sodium 10 % topical 1 applic topical QDAY 03/05/25 History cleanser apixaban 5 mg tablet (Eliquis) 5 mg PO BID 04/20/25 04/20/25 Hist ory Central Venous Access Central Venous Access: No Exam Physical Exam Const alert, oriented x3 and no apparent distress HEENT normocephalic, external ears normal and external nose normal Eyes PERRL, EOMs intact bilaterally, conjunctivae normal and no scleral icterus Neck supple Lymph Lymphatic: no lymphadenopathy noted Resp normal respiratory effort and clear to auscultation bilaterally Cardio regular rate, regular rhythm, S1 normal heart sound, S2 normal heart sound and no murmurs GI normal to inspection, nondistended, normoactive bowel sounds no CVA tenderness Back/Spine thoracic and lumbar spine normal to inspection Extremity no clubbing, cyanosis or edema Skin no rashes or lesions noted Neuro oriented x3, CN's II-XII intact bilaterally and moves all extremities Psych mental status grossly normal Coding Level of Care Code Off vis,new,level 3 Exam Problem Focused Diagnoses Chronic deep vein thrombosis (DVT) of popliteal vein of right lower extremity I82.531 Affected thrombotic vein of extremity: popliteal Chronicity: chronic DVT location: lower extremity Laterality: right Assessment and Plan Assessment and Plan (1) Deep vein thrombosis (DVT): Qualifiers: Affected thrombotic vein of extremity: popliteal Chronicity: chronic DVT location: lower extremity Laterality: right Qualified Code(s): I82.531 - Chronic embolism and thrombosis of right popliteal vein Plan: To continue Eliquis 5mg bid. RTC 1 month with CBC/PT/PTT/CMP/d-dim ers. Orders: Orders CBC W/Diff, Automated 04/20/25 I82.409 - Acute embolism and thrombosis of unspecified deep veins of unspecified lower extremity Comprehensive Metabolic Profil 04/20/25 I82.409 - Acute embolism and thrombosis of unspecified deep veins of unspecified lower extremity LDH 04/20/25 I82.409 - Acute embolism and thrombosis of unspecified deep veins of unspecified lower extremity D-Dimer Quantitative (DVT/PE) 04/20/25 I82.409 - Acute embolism and thrombosis of unspecified deep veins of unspecified lower extremity Partial Thromboplast Time 04/20/25 I82.409 - Acute embolism and thrombosis of unspecified deep veins of unspecified lower extremity Prothrombin Time w/INR 04/20/25 I82.409 - Acute embolism and thrombosis of unspecified deep veins of unspecified lower extremity CBC W/Diff, Automated 05/18/25 I82.409 - Acute embolism and thrombosis of unspecified deep veins of unspecified lower extremity Comprehensive Metabolic Profil 05/18/25 I82.409 - Acute embolism and thrombosis of unspecified deep veins of unspecified lower extremity LDH 05/18/25 I82.409 - Acute embolism and thrombosis of unspecifie (more content not included)... Normal [facility] Partial Thromboplast Timeon 04-20-2025 aPTT Coag (Bld) [Time] 26.2 s Normal 24.1-36.2 [facility] Comment on above: Performed By: #### L 500.4050, M100.7900, L500.4100, L100.0100, L501.9910, L400.2010 #### [facility] [address] [place], [address] Prothrombin Time w/INRon INR Coag (PPP) [Relative time] 1.1 {INR} Normal [facility] Comment on above: Performed By: #### L 500.4050, M100.7900, L500.4100, L100.0100, L501.9910, L400.2010 #### [facility] [address] [place], [address] PT Coag (PPP) [Time] 14.5 s Normal 11.7-14.9 [facility] Comment on above: Performed By: #### L 500.4050, M100.7900, L500.4100, L100.0100, L501.9910, L400.2010 #### [facility] [address] [place], [address] Absolute lymphocyte countOrd ered By: Tone Mata on 04-08-2025 Lymphocytes Auto (Unsp spec) [#/Vol] 2.49 10*3/uL 0.83-4.51 [facility] Absolute neutrophil countOrd ered By: Tone Mata on 04-08-2025 Neutrophils (Bld) [#/Vol] 2.9 10*3/uL 2.0-7.7 [facility] Anion gap in Serum or Plasma Ordered By: Tone Mata on 04-08-2025 Anion gap [Moles/Vol] 10 mmol/L - [facility] Automated lymphocyte count a s percentage of total leukocytesOrdered By: Tone Mata on 04-08-2025 Lymphocytes/100 WBC Auto (Unsp spec) 39.8 % [facility] BUN/creatinine ratioOrdered By: Tone Mata on 04-08-2025 Urea nitrogen/Creatinine [Mass ratio] 14.1 mg/mg 08-31 [facility] Basic Metabolic Profile (BMP )on 04-08-2025 BUN/CRE 14.1 RATIO Normal 08-31 [facility] Comment on above: Performed By: #### L 500.4050, M100.7900, L500.4100, L100.0100, L501.9910, L400.2010 #### [facility] [address] [place], [address] Calcium [Mass/Vol] 8.9 mg/dL Normal 7.6-11.0 [facility] Comment on above: Performed By: #### L 500.4050, M100.7900, L500.4100, L100.0100, L501.9910, L400.2010 #### [facility] [address] [place], [address] Chloride [Moles/Vol] 106 mmol/L Normal 98-108 [facility] Comment on above: Performed By: #### L 500.4050, M100.7900, L500.4100, L100.0100, L501.9910, L400.2010 #### [facility] [address] [place], [address] CO2 [Moles/Vol] 21.9 mmol/L Normal 21.0-32.0 [facility] Comment on above: Performed By: #### L 500.4050, M100.7900, L500.4100, L100.0100, L501.9910, L400.2010 #### [facility] [address] [place], [address] Creatinine [Mass/Vol] 0.97 mg/dL Normal 0.70-1.20 [facility] Comment on above: Performed By: #### L 500.4050, M100.7900, L500.4100, L100.0100, L501.9910, L400.2010 #### [facility] [address] [place], [address] ECRCL 89.89 ml/min Normal 50-250 [facility] Comment on above: Performed By: #### L 500.4050, M100.7900, L500.4100, L100.0100, L501.9910, L400.2010 #### [facility] [address] [place], [address] GAP 10 Normal 5-15 [facility] Comment on above: Performed By: #### L 500.4050, M100.7900, L500.4100, L100.0100, L501.9910, L400.2010 #### [facility] [address] [place], [address] GFR/1.73 sq M.predicted among non-blacks MDRD (S/P/Bld) [Vol rate/Area] 92 mL/min/{1.73_m2} Normal >60 [facility] Comment on above: Result Comment: mL/m in/1.73m2 CKD-EPI Creatinine Equation (2020) Performed By: #### L 500.4050, M100.7900, L500.4100, L100.0100, L501.9910, L400.2010 #### [facility] [address] [place], [address] Glucose [Mass/Vol] 91 mg/dL Normal 70-99 [facility] Comment on above: Performed By: #### L 500.4050, M100.7900, L500.4100, L100.0100, L501.9910, L400.2010 #### [facility] [address] [place], [address] Potassium [Moles/Vol] 4.1 mmol/L Normal 3.3-5.1 [facility] Comment on above: Performed By: #### L 500.4050, M100.7900, L500.4100, L100.0100, L501.9910, L400.2010 #### [facility] [address] [place], [address] Sodium [Moles/Vol] 138 mmol/L Normal 133-145 [facility] Comment on above: Performed By: #### L 500.4050, M100.7900, L500.4100, L100.0100, L501.9910, L400.2010 #### [facility] [address] [place], [address] Urea nitrogen [Mass/Vol] 14 mg/dL Normal 4-19 [facility] Comment on above: Performed By: #### L 500.4050, M100.7900, L500.4100, L100.0100, L501.9910, L400.2010 #### [facility] [address] [place], [address] Basophil percentageOrdered B y: Tone Mata on 04-08-2025 Basophils/100 WBC (Bld) 0.5 % 0-1 [facility] CBC W/Diff, Automatedon 03-13 Absolute Lymph 2.49 X10 3/uL Normal 0.83-4.51 [facility] Comment on above: Performed By: #### L 500.4050, M100.7900, L500.4100, L100.0100, L501.9910, L400.2010 #### [facility] [address] [place], [address] Absolute Neut 2.9 X10 3/uL Normal 2.0-7.7 [facility] Comment on above: Performed By: #### L 500.4050, M100.7900, L500.4100, L100.0100, L501.9910, L400.2010 #### [facility] [address] [place], [address] Basophils/100 WBC (Bld) 0.5 % Normal 0-1 [facility] Comment on above: Performed By: #### L 500.4050, M100.7900, L500.4100, L100.0100, L501.9910, L400.2010 #### [facility] [address] [place], [address] Eosinophils/100 WBC (Bld) 1.8 % Normal 0-5 [facility] Comment on above: Performed By: #### L 500.4050, M100.7900, L500.4100, L100.0100, L501.9910, L400.2010 #### [facility] [address] [place], [address] Erythrocyte distribution width (RBC) [Ratio] 12.7 % Normal 11.6-14.6 [facility] Comment on above: Performed By: #### L 500.4050, M100.7900, L500.4100, L100.0100, L501.9910, L400.2010 #### [facility] [address] [place], [address] Hematocrit (Bld) [Volume fraction] 43.1 % Normal 40-54 [facility] Comment on above: Performed By: #### L 500.4050, M100.7900, L500.4100, L100.0100, L501.9910, L400.2010 #### [facility] [address] [place], [address] Hemoglobin (Bld) [Mass/Vol] 15.5 g/dL Normal 13.0-16.5 [facility] Comment on above: Performed By: #### L 500.4050, M100.7900, L500.4100, L100.0100, L501.9910, L400.2010 #### [facility] [address] [place], [address] IG% 0.300 Normal 0.0-0.9 [facility] Comment on above: Result Comment: IG% - Immature Granulocytes (promyelocytes, myelocytes and metamyelocytes) > 1% indicates that a LEFT SHIFT is Present. Performed By: #### L 500.4050, M100.7900, L500.4100, L100.0100, L501.9910, L400.2010 #### [facility] [address] [place], [address] Lymphocytes/100 WBC (Bld) 39.8 % Normal 19-41 [facility] Comment on above: Performed By: #### L 500.4050, M100.7900, L500.4100, L100.0100, L501.9910, L400.2010 #### [facility] [address] [place], [address] MCH (RBC) [Entitic mass] 33.8 pg High 27.0-32.0 [facility] Comment on above: Performed By: #### L 500.4050, M100.7900, L500.4100, L100.0100, L501.9910, L400.2010 #### [facility] [address] [place], [address] MCHC (RBC) [Mass/Vol] 36.0 g/dL Normal 32-36 [facility] Comment on above: Performed By: #### L 500.4050, M100.7900, L500.4100, L100.0100, L501.9910, L400.2010 #### [facility] [address] [place], [address] MCV (RBC) [Entitic vol] 94.1 fL High 80-94 [facility] Comment on above: Performed By: #### L 500.4050, M100.7900, L500.4100, L100.0100, L501.9910, L400.2010 #### [facility] [address] [place], [address] Monocytes/100 WBC (Bld) 11.8 % High 0-10 [facility] Comment on above: Performed By: #### L 500.4050, M100.7900, L500.4100, L100.0100, L501.9910, L400.2010 #### [facility] [address] [place], [address] Neutrophils/100 WBC (Bld) 45.8 % Low 47-70 [facility] Comment on above: Performed By: #### L 500.4050, M100.7900, L500.4100, L100.0100, L501.9910, L400.2010 #### [facility] [address] [place], [address] Nucleated RBC (Bld) [#/Vol] 0 10*3/uL Normal 0-5 [facility] Comment on above: Performed By: #### L 500.4050, M100.7900, L500.4100, L100.0100, L501.9910, L400.2010 #### [facility] [address] [place], [address] Platelet mean volume (Bld) [Entitic vol] 9.1 fL Normal 6.2-12.0 [facility] Comment on above: Performed By: #### L 500.4050, M100.7900, L500.4100, L100.0100, L501.9910, L400.2010 #### [facility] [address] [place], [address] Platelets (Bld) [#/Vol] 251 10*3/uL Normal 150-450 [facility] Comment on above: Performed By: #### L 500.4050, M100.7900, L500.4100, L100.0100, L501.9910, L400.2010 #### [facility] [address] [place], [address] RBC (Bld) [#/Vol] 4.58 10*6/uL Low 4.6-6.2 [facility] Comment on above: Performed By: #### L 500.4050, M100.7900, L500.4100, L100.0100, L501.9910, L400.2010 #### [facility] [address] [place], [address] RDW SD 44.0 fl High 35.1-43.9 [facility] Comment on above: Performed By: #### L 500.4050, M100.7900, L500.4100, L100.0100, L501.9910, L400.2010 #### [facility] [address] [place], [address] WBC (Bld) [#/Vol] 6.3 10*3/uL Normal 4.4-11.0 [facility] Comment on above: Performed By: #### L 500.4050, M100.7900, L500.4100, L100.0100, L501.9910, L400.2010 #### [facility] [address] [place], [address] CTA Chest W/WO Contraston CTA Chest W/WO Contrast [facility] [address] [place] [address] CTA Chest W/WO Contrast MR#: [id number] Acct: [id number] Name: SHARA DELEON Rep #: [id number] : 1970 M 54 From: Edwin jerry MD PCP: Samuel Howard [employer]WR[employer] APPRENTICE-C Status: REG ER Study: CTA Chest W/WO Contrast Date of Exam: 04/08/25 Exam# [id number] Ordering Dr: Tone Mata MD PROCEDURE: CTA CHEST W/WO CONTRAST 04/08/2025 REASON FOR EXAM: HISTORY OF DVT, SHORTNESS OF BREATH TECHNIQUE: CTA axial imaging of the chest with intravenous contrast. Multiplanar and multisequence images were obtained. PATIENT PREPARATION: Per protocol CONTRAST: Isovue 370 VOLUME: 100 mL One or more dose reduction techniques were used (e.g., Automated exposure control, adjustment of the mA and/or kV according to patient size, use of iterative reconstruction technique). RADIATION DOSE SUMMARY: CTDlvol: 10.5 mGy DLP: 402.01 mGycm . COMPARISON: None FINDINGS: Hardware: None Lymph nodes: Small benign-appearing mediastinal lymph nodes. Heart: The heart is nonenlarged. No coronary calcification is seen. Thoracic Aorta: No thoracic aortic aneurysm or dissection. Pulmonary Vessels: No evidence of acute pulmonary emboli through the major subsegmental branches. Lungs and Airways: Mild dependent atelectasis. Pleura: No pleural effusion. No pneumothorax. Upper Abdomen: Visualized portions of the upper abdominal viscera are unremarkable. Bones: Unremarkable. CT/CTA Chest W/WO Contrast IMPRESSION: No evidence of pulmonary embolism. The lungs are clear. Reading Location: [place] [address] CC: Dr. Tone Mata MD; [facility] [employer]WR[employer] APPRENTICE-C [employer] Worker: Signed Normal [facility] Carbon dioxide, total [Moles /volume] in Central venous bloodOrdered By: Tone Mata on 04-08-2025 CO2 [Moles/Vol] 21.9 mmol/L 21.0-32.0 [facility] Chloride assayOrdered By: Floyd Mata on 04-08-2025 Chloride [Moles/Vol] 106 mmol/L 98-108 [facility] Emergency Department Summary on 04-08-2025 Emergency Department Summary [facility] Medical Records Department [address] [place] [address] Emergency Department Summary 04/08/25 MR#: [id number] Acct: [id number] Name: SHARA DELEON Rep #: [id number] : 1970 54 From: Tone Mata MD PCP: Samuel Howard [facility] SHIPWRIGHT APPRENTICE-C Status:REG ER Location: ED HPI History of Present Illness Chief Complaint: Shortness of Breath Narrative Narrative: 54-year-old male past medical history of DVTs, having shortness of breath for 2 months. He relates history that he was diagnosed with DVTs and started Eliquis a few months ago. He has not missed a dose. However, he is concerned that he has a pulmonary embolism because all of his brothers had to start blood thinners and his mother also had pulmonary emboli. He denies any fevers or chills, no cough. He does not have follow-up with hematology/oncology until the next few weeks. PFSH PFS Medical History Back pain Limb weakness Home Medications ???Medication ???Instructions ???Recorded ???Last Taken ???Type Boostrix Tdap 2.5 Lf unit-8 mcg-5 0.5 ml IM ONCE #1 mL 08/28/22 [facility] Lf/0.5 mL intramuscular syringe (diphth,pertus(acell ),tetanus) Flucelvax Quad 1329-8840 (PF) 60 0.5 ml IM ONCE #0.5 mL 08/28/22 Un known Clinic mcg (15 mcg x 4)/0.5 mL IM syringe (flu vac qs 2021(6 ms up)CD(PF)) apixaban 5 mg (74 tabs) tablets in See Rx Instructions PO .COMPLEX 01/28/25 Unknown Rx a dose pack (Eliquis DVT-PE Treat #74 tabs 30D Start) sulfacetamide sodium 10 % topical 1 applic topical QDAY 03/05/25 Un known 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 No fevers or chills, no other symptoms. EXAM Physical Exam Narrative Exam Narrative: Afebrile. Vital signs noted. Nontoxic-appearing. Cardiovascular examination of is a regular rate and rhythm. Lungs are clear to auscultation bilaterally. Abdomen is soft nontender with normal active bowel sounds. Neurovasc intact bilateral lower extremities. Palpable dorsalis pedis pulses. Const Vital Signs: 04/08/25 07:05 04/08/25 07:21 Temperature 97.8 F Temperature Source Oral Pulse Rate 60 Respiratory Rate 16 Respiratory Effort Normal Respiratory Depth Normal Respiratory Pattern Normal Blood Pressure 144/90 H Blood Pressure Mean 108 Pulse Ox 100 Oxygen Delivery Method Room Air Room Air MDM MDM MDM Narrative Medical decision making narrative: Differential diagnosis includes but not limited to pulmonary emboli versus anxiety versus pneumonia versus pneumothorax. History and physical does not support pneumonia or pneumothorax. Pulse ox is 100% on room air without evidence of hypoxia. He is not tachycardic. I had a discussion with the patient that treatment for pulmonary emboli and DVT is being on Eliquis. He has not missed a dose. I do feel that there is a strong anxiety component regarding this. He is mildly adamant that CTA should be performed to look for clot burden. I will look for other source of his subjective dyspnea and feeling that he cannot take a deep breath at the lung parenchyma. I will also check a CBC and a BMP to look for other causes such as anemia but clinically I do not feel that he has a low hemoglobin. I reviewed his laboratory work and he has normal white count of 6.3 with hemoglobin normal at 15.5, no anemia. Platelet count normal at 251. Electrolyte panel grossly unremarkable. I reviewed the radiology report of the CT of the chest/CTA and there is no evidence of a pulmonary embolism, no pneumonia, no pneumothorax. At this point in time, as his pulse ox is 100% on room air and he is already on a blood thinner treating his DVTs I feel he can be discharged to follow-up with a hand worker oncologist. I do not feel he requires observation or admission. He was told to continue the use of his blood thinner/Eliquis. Disposition is discharged home in stable condition. History Record Review Discussion w/independent historian: Patient Additional record(s) reviewed:: Prior ED visit (Had outpatient ultrasound which showed DVT of the soleus vein.) Lab Data Attestation: I reviewed the p (more content not included)... Normal [facility] Eosinophil percentageOrdered By: Tone Mata on 04-08-2025 Eosinophils/100 WBC (Bld) 1.8 % 0-5 [facility] Erythrocyte distribution wid th ratioOrdered By: Tone Mata on 04-08-2025 Erythrocyte distribution width (RBC) [Ratio] 12.7 % 11.6-14.6 [facility] Erythrocyte distribution wid th standard deviationOrdered By: Tone Mata on 04-08-2025 Erythrocyte distribution width (RBC) [Ratio] 44.0 fl High 35.1-43.9 [facility] Glomerular filtration rate ( GFR) estimation/1.73 sq m using serum, plasma, or whole bOrdered By: Tone Mata on 04-08-2025 GFR/1.73 sq M.predicted among non-blacks MDRD (S/P/Bld) [Vol rate/Area] 92 mL/min/{1.73_m2} >60 [facility] Comment on above: mL/min/1.73m2 CKD-EP I Creatinine Equation (2020) Hematocrit Auto (Bld) [Volum e fraction]Ordered By: Tone Mata on 04-08-2025 Hematocrit (Bld) [Volume fraction] 43.1 % 40-54 [facility] Hemoglobin measurementOrdere d By: Tone Mata on 04-08-2025 Hemoglobin (Bld) [Mass/Vol] 15.5 g/dL 13.0-16.5 [facility] Immature granulocytes/100 WB C Auto (Bld)Ordered By: Tone Mata on 04-08-2025 Immature granulocytes/100 WBC (Bld) 0.300 % 0.0-0.9 [facility] Comment on above: IG% - Immature Granu locytes (promyelocytes, myelocytes and metamyelocytes) > 1% indicates that a LEFT SHIFT is Present. MCV (mean corpuscular volume ) determinationOrdered By: Tone Mata on 04-08-2025 MCV (RBC) [Entitic vol] 94.1 fL High 80-94 [facility] Mean corpuscular hemoglobin (MCH) determinationOrdered By: Tone Mata on 04-08-2025 MCH (RBC) [Entitic mass] 33.8 pg High 27.0-32.0 [facility] Mean corpuscular hemoglobin concentration (MCHC) determinationOrdered By: Tone Mata on 04-08-2025 MCHC (RBC) [Mass/Vol] 36.0 g/dL 32-36 [facility] Mean platelet volume determi nationOrdered By: Tone Mata on 04-08-2025 Platelet mean volume (Bld) [Entitic vol] 9.1 fL 6.2-12.0 [facility] Monocyte percentageOrdered B y: Tone Mata on 04-08-2025 Monocytes/100 WBC (Bld) 11.8 % High 0-10 [facility] Neutrophil percentageOrdered By: Tone Mata on 04-08-2025 Neutrophils/100 WBC (Bld) 45.8 % Low 47-70 [facility] Nucleated red blood cell per centageOrdered By: Tone Mata on 04-08-2025 Nucleated RBC/100 WBC (Bld) [Ratio] 0 % 0-5 [facility] Platelet countOrdered By: Floyd Mata on 04-08-2025 Platelets (Bld) [#/Vol] 251 10*3/uL 150-450 [facility] Potassium measurement (mass/ volume)Ordered By: Tone Mata on 04-08-2025 Potassium (Unsp spec) [Mass/Vol] 4.1 mmol/L 3.3-5.1 [facility] RBC Auto (Bld) [#/Vol]Ordere d By: Tone Mata on 04-08-2025 RBC (Bld) [#/Vol] 4.58 10*6/uL Low 4.6-6.2 [facility] Serum creatinine measurement (mass/volume)Ordered By: Tone Mata on 04-08-2025 Creatinine [Mass/Vol] 0.97 mg/dL 0.70-1.20 [facility] Serum glucose measurement (m ass/volume)Ordered By: Tone Mata on 04-08-2025 Glucose [Mass/Vol] 91 mg/dL 70-99 [facility] Serum or plasma calcium amrit urement (mass/volume)Ordered By: Tone Mata on 04-08-2025 Calcium [Mass/Vol] 8.9 mg/dL 7.6-11.0 [facility] Serum or plasma urea nitroge n measurement (mass/volume)Ordered By: Tone Mata on 04-08-2025 Urea nitrogen [Mass/Vol] 14 mg/dL 4-19 [facility] Sodium levelOrdered By: [place] Adolfo on 04-08-2025 Sodium [Moles/Vol] 138 mmol/L 133-145 [facility] White blood cell (WBC) count Ordered By: Tone Mata on 04-08-2025 WBC (Bld) [#/Vol] 6.3 10*3/uL 4.4-11.0 [facility] [id number] 01-30-2025 [facility] Misc. COMMENT Normal . [facility] Comment on above: Order Comment: Urine , Random Result Comment: Test Ordered: [id number] COAG Screen Reflexive Eval Prothrombin Time 11.6 sec [facility] Reference Range: . Reference Range: 18 years and older: 9.1 - 12.0 INR 1.0 ratio UY Reference Range: . Reference Range: >1 month: 0.9 - 1.2 APTT 22.8 [L ] sec UY Reference Range: . This test has not been validated for monitoring unfractionated heparin therapy. aPTT-based therapeutic ranges for unfractionated heparin therapy have not been established. Consider ordering Heparin anti-Xa (unfractionated). Reference Range: 18 years and older: 22.9 - 30.2 Thrombin Time 18.4 sec UY Reference Range: . Reference Range: 0.0 - 23.0 DRVVT Screen Seconds 41.3 sec UY Reference Range: . Reference Range: <= 47.0 DRVVT Confirm Seconds sec UY Reference Range: . Testing Not Indicated DRVVT Ratio ratio UY Reference Range: . Testing Not Indicated Hexagonal Phospholipid Neutral 6 sec UY Reference Range: . This value is NEGATIVE. This is a qualitative assay and is therefore reported as positive for lupus anticoagulant or negative. The quantitative value is provided as an aid in diagnosis. Reference Range: 0 - 11 Pathologist Interpretation Comment [facility] Reference Range: . Written pathologist interpretation is provided for the assays performed at [facility] only. Interpretive Synopsis: The thrombin time and PT are normal, and a lupus anticoagulant is not detected. The aPTT falls below the normal reference interval. This can occur when factor VIII activity is elevated or when a sample is activated due to traumatic venipuncture or prolonged tourniquet placement. Please contact [facility] if further clarification is needed. Ashely Franco M.D. [id number] (Pathologist interpretation time: 10 minutes) Performed at: [facility] [address] [id number] [employer]er: Juan Alberto Lares MD, Phone: [phone] Performed at: [facility] [id number] [employer]er: Jose Mello PhD, Phone: [phone] Performed By: #### L 500.4050, M100.7900, L500.4100, L100.0100, L501.9910, L400.2010 #### [facility] [address] [facility] [place], [address] Emergency Department Summary on 01-28-2025 Emergency Department Summary [facility] Medical Records Department [address] [place] [address] Emergency Department Summary 01/28/25 MR#: [id number] Acct: [id number] Name: SHARA DELEON Rep #: [id number] : 1970 54 From: Karri Escobedo DO PCP: Samuel Howard [facility] SHIPWRIGHT APPRENTICE-C Status:PRE ER Location: ED HPI History of Present Illness Chief Complaint: Lower Extremity Injury Narrative Narrative: Chief complaint and HPI: Right lower extremity DVT. 54-year-old gentleman with no significant past medical history presents from radiology for right lower extremity DVT. Patient states for the past year he has been having intermittent pain in his right calf compared to his left. He states that he felt like his right calf is slightly larger than the left. He states he did not think anything of it until his brother was recently diagnosed with a DVT so he decided to have this further evaluated outpatient with his PCP. Blood work was obtained as well as ultrasound. Patient had his ultrasound performed prior to arrival that showed a right lower extremity DVT. He denies any chest pain, shortness of breath, lightheadedness. Review of systems: See HPI Medications: As listed on the chart Allergies: As listed on the chart PFSH: Per chart Vital signs: As listed on the chart. Reviewed. Physical exam: Gen: A O x3, NAD Head: Normocephalic, atraumatic Eyes: No sclera icterus, conjunctiva clear ENT: Moist mucous membranes Neck: Trachea midline, No JVD CV: RRR, no murmurs Resp: Lungs CTA BL, no w/r/c Musc: Full ROM, no deformity, minimal tenderness to the right lower calf compared to the left-no erythema/warmth/swel ling of either extremity, DP/PT pulse +2 Skin: Warm, dry Neuro: Alert, oriented, grossly intact, sensation intact Psych: Cooperative, appropriate mood and affect [facility] Medical History Back pain Limb weakness Home Medications ???Medication ???Instructions ???Recorded ???Last Taken ???Type Boostrix Tdap 2.5 Lf unit-8 mcg-5 0.5 ml IM ONCE #1 mL 08/28/22 [facility] Lf/0.5 mL intramuscular syringe (diphth,pertus(acell ),tetanus) Flucelvax Quad [id number] (PF) 60 0.5 ml IM ONCE #0.5 mL 08/28/22 Un known Clinic mcg (15 mcg x 4)/0.5 mL IM syringe (flu vac qs 2021(6 ms up)CD(PF)) apixaban 5 mg (74 tabs) tablets in See Rx Instructions PO .COMPLEX 01/28/25 Unknown Rx a dose pack (Eliquis DVT-PE Treat #74 tabs 30D Start) Allergy/AdvReac Type Severity Reaction Status Date / Time No Known Allergies Allergy Verified 01/28/25 12:02 Family History (Updated 12/31/23 @ 09:02 by Sandro Corbin SHIPWRIGHT APPRENTICE, SHIPWRIGHT APPRENTICE-C) Mother Colon cancer Pancreatic cancer Blood clotting disorder Sister Blood clotting disorder Brother Blood clotting disorder Surgical History History of back surgery Social History Smoking Status: Never smoker alcohol intake: current Alcohol type: beer EXAM Physical Exam Const Vital Signs: 01/28/25 11:59 Temperature 97.1 F L Temperature Source Temporal Pulse Rate 64 Respiratory Rate 15 Blood Pressure 133/92 H Blood Pressure Mean 105 Pulse Ox 100 Oxygen Delivery Method Room Air MDM MDM MDM Narrative Medical decision making narrative: 54-year-old gentleman with no significant past medical history presents from radiology for right lower extremity DVT. Patient states he has been having intermittent pain in his right calf for a year. He obtain an ultrasound prior to arrival that shows an acute DVT in the right soleus vein. No DVT on the left. On presentation, vitals are stable other than some mild hypertension. He denies any lightheadedness, chest pain, shortness of breath, syncope. I do not think any further workup is needed such as labs or imaging. Patient has no contradictions to anticoagulation. 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 I did explain to him that he will need to be placed on a blood thinner, Eliquis. I explained to him that this can increase spontaneous bleeding as well as bleeding with trauma or injury. I explained to him that if he develops any injury he needs to be evaluated in the emergency department for bleeding. He confirmed understanding the plan. Patient discharged home with prescription for Eliquis. He needs follow-up with his PCP. Return precautions explained. He confirmed understanding of the plan. Impression: 1. Right lower extremity DVT Discharge Plan Triage Chief Complaint: Lower Extremity Injury ED Provider: Karri Escobedo Dx/Rx/DC Orders Clinical Impression: DVT (deep venous thrombosis) Instructions: DVT Complications, Anticoagulants, DVT Tx, ED Deep Vein Thrombosis (DVT) Prescriptions: New (more content not included)... Normal [facility] Venous Duplex US, Unilateral on 01-28-2025 Venous Duplex US, Unilateral [facility] [address] [place] [address] Venous Duplex US, Unilateral 01/28/25 1048 MR#: [id number] Acct: [id number] Name: SHARA DELEON Rep #: [id number] : 1970 54 From: Lincoln Quigley MD Attending Dr: Samuel Howard Cristina SHIPWRIGHT APPRENTICE-C Status: REG CLI Ordering Dr: Samuel Howard SHIPWRIGHT APPRENTICE-C Date: 01/28/25 Location: CVS Sex: M C Admitted: Reason For Study Reason For Study: Pain in Right lower leg RIGHT LEFT GSV is normal. CFV is compressible, spontaneous, phasic, competent, CFV is compressible, spontaneous, phasic, competent and demonstrates normal augmentation. and demonstrates normal augmentation. FV is compressible, spontaneous, phasic, competent and demonstrates normal augmentation. Acute deep vein thrombosis is noted in the POP V. It is dilated and NONCOMPRESSIBLE. Acute deep vein thrombosis is noted in the T/P Trunk. It is dilated and NONCOMPRESSIBLE. PTV is compressible. Acute deep vein thrombosis is noted in the Per V. It is dilated and NONCOMPRESSIBLE. Acute deep vein thrombosis is noted in the right soleus vein. Procedure This is a venous duplex using B-mode, color flow and spectral Doppler. Exam performed in department. A preliminary report was called and/or faxed to [employer] left on nurses line for Samuel Palma office. Patient taken to ED. VL/Venous Duplex US, Unilateral Interpretation Summary Acute deep vein thrombosis is noted in the right popliteal vein. Acute deep vein thrombosis is noted in the right tibio- peroneal trunk. Acute deep vein thrombosis is noted in the right peroneal vein. Acute deep vein thrombosis is noted in the right soleus vein. The right common femoral vein, femoral vein, and posterior tibial vein are patent and compressible. Valvular competence appears intact within the proximal deep venous system on the right . The right great saphenous vein appears patent and compressible segmentally. The left common femoral vein is patent and compressible . Ordering Physician: Samuel Howard Referring Physician: Samuel Howard Performed By: Gretchen Isbell 01/28/25 1406 Date Lincoln Quigley MD [facility] SHIPWRIGHT APPRENTICE-C Anita Date Dictated: 01/28/25 1048 Date Transcribed: 01/28/25 140 [employer] Systems Worker: Signed Normal [facility] Venous duplex ultrasound rep ortOrdered By: Lincoln Quigley on 01-28-2025 US Vein [facility] [address] [place] [address] Venous Duplex US, Unilateral 01/28/25 1048 MR#: [id number] Acct: [id number] Name: SHARA DELEON Rep #:[id number] : 1970 54 From: Lincoln Quigley MD Attending Dr: Bautista Howardchelsea [facility] SHIPWRIGHT APPRENTICE-C Status: REG CLI Ordering Dr: Samuel Howard [facility] SHIPWRIGHT APPRENTICE-C Sharath e: 01/28/25 Location: CVS Sex: M C Admitted: Reason For Study Reason For Study: Pain in Right lower leg RIGHT LEFT GSV is normal. CFV is compressible, spontaneous, phasic, competent, CFV is compressible, spontaneous, phasic, competent and demonstrates normal augmentation. and demonstrates normal augmentation. FV is compressible, spontaneous, phasic, competent and demonstrates normal augmentation. Acute deep vein thrombosis is noted in the POP V. It is dilated and NONCOMPRESSIBLE. Acute deep vein thrombosis is noted in the T/P Trunk. It is dilated and NONCOMPRESSIBLE. PTV is compressible. Acute deep vein thrombosis is noted in the Per V. It is dilated and NONCOMPRESSIBLE. Acute deep vein thrombosis is noted in the right soleus vein. Procedure This is a venous duplex using B-mode, color flow and spectral Doppler. Exam performed in department. A preliminary report was called and/or faxed to [employer] left on nurses line for Samuel Palma office. Patient taken to ED. VL/Venous Duplex US, Unilateral Interpretation Summary Acute deep vein thrombosis is noted in the right popliteal vein. Acute deep veinthrombosis is noted in the right tibio- peroneal trunk. Acute deep vein thrombosis is noted in the right peroneal vein. Acute deep vein thrombosis is noted in the right soleus vein. The right common femoral vein, femoral vein, and posterior tibial vein are patent and compressible. Valvular competence appears intact within the proximal deep venoussystem on the right . The right great saphenous vein appears patent and compressible segmentally. The left common femoral vein is patent and compressible . Ordering Physician: Samuel Howard Referring Physician: Samuel Howard Performed By: Gretchen Isbell 01/28/25 1406 Date _ Lincoln Quigley MD CC: Samuel [facility] SHIPWRIGHT APPRENTICE-C Anita ~ Date Dictated: 01/28/25 1048 Date Transcribed: 01/28/25 1406 Gas Systems Worker: Tawanda [facility] Other Office Visit Reporton 2024 Office Visit Report [facility] [address] [place] [address] OFFICE VISIT Date of Service: 01/12/25 MR#: [id number] Acct: [id number] Patient: SHARA DELEON Rep #: [id number] : 1970 Provider: CRUZ Sims Age/Sex: 54/M Location: [facility] Status: Signed Intake Vital Signs 08/16/24 10:12 Height 5 ft 10 in Intake Visit Reasons: AUDIOGRAM, TITMUS/ WFD Chief Complaint: head/ear pressure, fever, BA, dizzy Allergies No Known Allergies Allergy (Verified 12/04/24 09:51) Office Procedures [facility] Billing Sheet Testing Hearing (Audiogram) Test: Yes Titmus Screening: Yes Employer Workplace Physicals Physical Exam: Yes 01/26/25 0621 Date Jamari ARROYO Cosigner Signature: Date (if applicable) CC: Normal [facility] Urgent Care Visit Reporton 0 01-12-2025 Urgent Care Visit Report [facility] [address], [address] [place] [address] OFFICE VISIT Date of Service: 01/12/25 MR#: [id number] Acct: [id number] Name: SHARA DELEON Rep #: [id number] : 1970 Provider: CRUZ Sims Age/Sex: 54/M Location: [facility] Status: Signed Intake Vital Signs 08/16/24 10:12 Height 5 ft 10 in Intake Visit Reasons: FF PHYSICAL/ WFD Chief Complaint: head/ear pressure, fever, BA, dizzy Allergies No Known Allergies Allergy (Verified 12/04/24 09:51) PFSH Medical History Back pain Limb weakness Surgical History History of back surgery Family History (Updated 12/31/23 @ 09:02 by Sandro Corbin NP, SHIPWRIGHT APPRENTICE-C) Mother Colon cancer Pancreatic cancer Blood clotting disorder Sister Blood clotting disorder Brother Blood clotting disorder Social History Smoking Status: Never smoker alcohol intake: current Alcohol type: beer HPI HPI Chief Complaint: head/ear pressure, fever, BA, dizzy Details: SHARA DELEON, is a 54 M who presents to the office today for Office Procedures Physical Exam Coding PE Coding Additional Details: 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 and 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 pe Coding Level of Care Code No Charge Diagnoses Encounter for drapery and 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 medical examination Z02.89 Assessment and Plan Assessment and Plan (1) Encounter for drapery and 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 medical examination: Status: Acute 01/12/25 0851 Date Jamari Rodriguez Signature: Date (if applicable) CC: Normal [facility] Urgent Care Visit Reporton 0 12-04-2024 Urgent Care Visit Report [facility] [address], [address] [place] [address] OFFICE VISIT Date of Service: 12/04/24 MR#: [id number] Acct: [id number] Name: SHARA DELEON Rep #: [id number] : 1970 Provider: CRUZ Barron Age/Sex: 54/M Location: [facility] Status: Signed Intake Vital Signs 08/16/24 10:12 12/04/24 09:51 Height 5 ft 10 in BP 100/56 L Blood Pressure Location Rt brachial Position Sitting Respiration 15 Pulse 58 L Pulse Source NIBP Temp 98.4 F Temp Source Oral Pulse Oximetry (%) 98 Oxygen Delivery Method room air Intake Visit Reasons: CONCERN FOR SINUS INFECTION Chief Complaint: head/ear pressure, fever, BA, dizzy [employer] Assistant Required: No Is patient in pain?: No Allergies No Known Allergies Allergy (Verified 12/04/24 09:51) Have you fallen in the past year?: No Nurse's Note: head/ear pressure, fever, BA, dizzy x 3 weeks. tooth extraction 3 days ago, on Amox for that with no improvement in s/s [facility] Medical History Back pain Limb weakness Surgical History History of back surgery Family History (Updated 12/31/23 @ 09:02 by Sandro Corbin NP, SHIPWRIGHT APPRENTICE-C) Mother Colon cancer Pancreatic cancer Blood clotting disorder Sister Blood clotting disorder Brother Blood clotting disorder Social History Smoking Status: Never smoker alcohol intake: current Alcohol type: beer HPI HPI Chief Complaint: head/ear pressure, fever, BA, dizzy Details: SHARA DELEON, is a 54 M who presents to the office today for 54-year-old male here today with complaint of sinus pain and pressure as well as intermittent dizziness. Patient also states feeling like he has had a fever intermittently however is unaware of his Tmax. Patient states this has been ongoing for the past 3 weeks. No nausea, vomiting or diarrhea. No loss of taste or smell. No other associated symptoms or alleviating/aggravat ing factors. ROS Const Constitutional: No other (6 system ROS completed with pertinent findings in HPI otherwise normal.) Exam Const General: cooperative and healthy appearing HENMT Head: normal to inspection Ears: hearing grossly normal bilaterally, TM's normal bilaterally and EAC's normal Nose: nasal discharge purulent Face and sinus: sinus tenderness frontal and maxillary Mouth: oral mucosae normal Throat: abnormal tonsil bilaterally erythema and hypertrophy 1+ and postnasal drainage Resp Effort Inspection: normal respiratory effort Auscultation: Bilateral: Clear to Auscultation Cardio Rate: regular rate Rhythm: regular rhythm Neuro General: patient alert Psych Appearance: grossly normal Mental Status: mental status grossly normal Coding Level of Care Code Off vis,est,level 3 Diagnoses Acute non-recurrent maxillary sinusitis J01.00 Sinusitis location: maxillary Recurrence: non-recurrent Assessment and Plan Assessment and Plan (1) Sinusitis, acute: Status: Acute Qualifiers: Sinusitis location: maxillary Recurrence: non-recurrent Qualified Code(s): J01.00 - Acute maxillary sinusitis, unspecified Plan: Doxycycline and Medrol Dosepak as prescribed today. Encouraged to get plenty of rest, drink lots of clear liquids, and use Tylenol or Ibuprofen (unless contraindicated) for fever and comfort. Patient also educated on other symptomatic management techniques. To be seen in 7-10 days if no improvement; sooner if worsening of symptoms. Patient advised of potential red flags and when appropriate to report to the ED. Patient verbalized understanding and agreement with all the above. Medications: New doxycycline monohydrate 100 mg PO BID 10 days 20 caps 0RF methylprednisolone (Medrol (Peter)) 4 mg PO PER PKG DIR 6 days 21 tabs 0RF Clinical Quality Measures Falls Risk Screening/Assistive Devices Have you fallen in the past year?: No 12/04/24 1010 Date Abhilash ARROYO Cosigner Signature: Date (if applicable) CC: Normal [facility] Office Visit Reporton 2023 Office Visit Report [facility] [address] [place] [address] OFFICE VISIT Date of Service: 08/19/24 MR#: [id number] Acct: [id number] Patient: SHARA DELEON Rep #: [id number] : 1970 Provider: TROY Nuñez Age/Sex: 54/M Location: [facility] Status: Signed Intake Vital Signs 08/28/22 10:04 08/16/24 10:12 Height 5 ft 10 in 5 ft 10 in Intake Visit Reasons: TB/PFT/TITMUS/AUDIOG SEBASTIAN/ WCFF Allergies No Known Allergies Allergy (Unverified 12/15/22 12:50) Office Procedures [facility] Billing Sheet Testing TB Test: Yes Vaccine Flu Vaccine (Single Dose): Yes Employer Workplace Physicals Basic Metabolic Profile (BMP): Yes CBC w/Diff: Yes Complete Metabolic Panel (CMP): Yes EKG: Yes Hemocult: Yes Lipid Panel: Yes OSHA Respiratory Questionnaire: Yes Spirometry (PFT): Yes Urinalysis: Yes 09/23/24927 Date Jeanine Barkman SHIPWRIGHT APPRENTICE-C Cosigner Signature: Date (if applicable) CC: Normal [facility] CBC W/Diff, Automatedon 11-0 -2023 Absolute Lymph 2.58 X10 3/uL Normal 0.83-4.51 [facility] Comment on above: Performed By: #### L 500.4050, M100.7900, L500.4100, L100.0100, L501.9910, L400.2010 #### [facility] [address] [place], [address] Absolute Neut 3.1 X10 3/uL Normal 2.0-7.7 [facility] Comment on above: Result Comment: NO S HOW Performed By: #### L 500.4050, M100.7900, L500.4100, L100.0100, L501.9910, L400.2010 #### [facility] [address] [place], [address] Basophils/100 WBC (Bld) 0.5 % Normal 0-1 [facility] Comment on above: Performed By: #### L 500.4050, M100.7900, L500.4100, L100.0100, L501.9910, L400.2010 #### [facility] [address] [place], [address] Eosinophils/100 WBC (Bld) 1.2 % Normal 0-5 [facility] Comment on above: Performed By: #### L 500.4050, M100.7900, L500.4100, L100.0100, L501.9910, L400.2010 #### [facility] [address] [place], [address] Erythrocyte distribution width (RBC) [Ratio] 12.6 % Normal 11.6-14.6 [facility] Comment on above: Result Comment: NO S HOW Performed By: #### L 500.4050, M100.7900, L500.4100, L100.0100, L501.9910, L400.2010 #### [facility] [address] [place], [address] Hematocrit (Bld) [Volume fraction] 42.4 % Normal 40-54 [facility] Comment on above: Result Comment: NO S HOW Performed By: #### L 500.4050, M100.7900, L500.4100, L100.0100, L501.9910, L400.2010 #### [facility] [address] [place], [address] Hemoglobin (Bld) [Mass/Vol] 14.6 g/dL Normal 13.0-16.5 [facility] Comment on above: Result Comment: NO S HOW Performed By: #### L 500.4050, M100.7900, L500.4100, L100.0100, L501.9910, L400.2010 #### [facility] [address] [place], [address] IG% 0.200 Normal 0.0-0.9 [facility] Comment on above: Result Comment: IG% - Immature Granulocytes (promyelocytes, myelocytes and metamyelocytes) > 1% indicates that a LEFT SHIFT is Present. Performed By: #### L 500.4050, M100.7900, L500.4100, L100.0100, L501.9910, L400.2010 #### [facility] [address] [place], [address] Lymphocytes/100 WBC (Bld) 39.9 % Normal 19-41 [facility] Comment on above: Performed By: #### L 500.4050, M100.7900, L500.4100, L100.0100, L501.9910, L400.2010 #### [facility] [address] [place], [address] MCH (RBC) [Entitic mass] 32.4 pg High 27.0-32.0 [facility] Comment on above: Result Comment: NO S HOW Performed By: #### L 500.4050, M100.7900, L500.4100, L100.0100, L501.9910, L400.2010 #### [facility] [address] [place], [address] MCHC (RBC) [Mass/Vol] 34.4 g/dL Normal 32-36 [facility] Comment on above: Result Comment: NO S HOW Performed By: #### L 500.4050, M100.7900, L500.4100, L100.0100, L501.9910, L400.2010 #### [facility] [address] [place], [address] MCV (RBC) [Entitic vol] 94.2 fL High 80-94 [facility] Comment on above: Result Comment: NO S HOW Performed By: #### L 500.4050, M100.7900, L500.4100, L100.0100, L501.9910, L400.2010 #### [facility] [address] [place], [address] Monocytes/100 WBC (Bld) 10.2 % High 0-10 [facility] Comment on above: Performed By: #### L 500.4050, M100.7900, L500.4100, L100.0100, L501.9910, L400.2010 #### [facility] [address] [place], [address] Neutrophils/100 WBC (Bld) 48.0 % Normal 47-70 [facility] Comment on above: Result Comment: NO S HOW Performed By: #### L 500.4050, M100.7900, L500.4100, L100.0100, L501.9910, L400.2010 #### [facility] [address] [place], [address] Nucleated RBC (Bld) [#/Vol] 0 10*3/uL Normal 0-5 [facility] Comment on above: Performed By: #### L 500.4050, M100.7900, L500.4100, L100.0100, L501.9910, L400.2010 #### [facility] [address] [place], [address] Platelet mean volume (Bld) [Entitic vol] 9.6 fL Normal 6.2-12.0 [facility] Comment on above: Performed By: #### L 500.4050, M100.7900, L500.4100, L100.0100, L501.9910, L400.2010 #### [facility] [address] [place], [address] Platelets (Bld) [#/Vol] 282 10*3/uL Normal 150-450 [facility] Comment on above: Result Comment: NO S HOW Performed By: #### L 500.4050, M100.7900, L500.4100, L100.0100, L501.9910, L400.2010 #### [facility] [address] [place], [address] RBC (Bld) [#/Vol] 4.50 10*6/uL Low 4.6-6.2 [facility] Comment on above: Result Comment: NO S HOW Performed By: #### L 500.4050, M100.7900, L500.4100, L100.0100, L501.9910, L400.2010 #### [facility] [address] [place], [address] RDW SD 43.9 fl Normal 35.1-43.9 [facility] Comment on above: Result Comment: NO S HOW Performed By: #### L 500.4050, M100.7900, L500.4100, L100.0100, L501.9910, L400.2010 #### [facility] [address] [place], [address] WBC (Bld) [#/Vol] 6.5 10*3/uL Normal 4.4-11.0 [facility] Comment on above: Result Comment: NO S HOW Performed By: #### L 500.4050, M100.7900, L500.4100, L100.0100, L501.9910, L400.2010 #### [facility] [address] [place], [address] Comprehensive Metabolic Prof ilon 09-15-2024 Albumin [Mass/Vol] 3.7 g/dL Normal 3.2-5.0 [facility] Comment on above: Result Comment: NO S HOW Performed By: #### L 500.4050, M100.7900, L500.4100, L100.0100, L501.9910, L400.2010 #### [facility] [address] [place], [address] Albumin/Globulin [Mass ratio] 1.1 {ratio} Normal 0.9-2.4 [facility] Comment on above: Performed By: #### L 500.4050, M100.7900, L500.4100, L100.0100, L501.9910, L400.2010 #### [facility] [address] [place], [address] ALK P 51 U/L Normal 45-117 [facility] Comment on above: Result Comment: NO S HOW Performed By: #### L 500.4050, M100.7900, L500.4100, L100.0100, L501.9910, L400.2010 #### [facility] [address] [place], [address] ALT [Catalytic activity/Vol] 24 U/L Normal 16-61 [facility] Comment on above: Result Comment: NO S HOW Performed By: #### L 500.4050, M100.7900, L500.4100, L100.0100, L501.9910, L400.2010 #### [facility] [address] [place], [address] AST [Catalytic activity/Vol] 16 U/L Normal 15-37 [facility] Comment on above: Result Comment: NO S HOW Performed By: #### L 500.4050, M100.7900, L500.4100, L100.0100, L501.9910, L400.2010 #### [facility] [address] [place], [address] Bilirubin [Mass/Vol] 0.70 mg/dL Normal 0.20-1.00 [facility] Comment on above: Result Comment: For patients on eltrombopag therapy, use of Dimension [place] TBIL is not recommended. Performed By: #### L 500.4050, M100.7900, L500.4100, L100.0100, L501.9910, L400.2010 #### [facility] [address] [place], [address] BUN/CRE 15.2 RATIO Normal 10-20 [facility] Comment on above: Result Comment: NO S HOW Performed By: #### L 500.4050, M100.7900, L500.4100, L100.0100, L501.9910, L400.2010 #### [facility] [address] [place], [address] CA,Total 8.7 mg/dL Normal 8.5-10.1 [facility] Comment on above: Result Comment: NO S HOW Performed By: #### L 500.4050, M100.7900, L500.4100, L100.0100, L501.9910, L400.2010 #### [facility] [address] [place], [address] Chloride [Moles/Vol] 107 mmol/L Normal 98-107 [facility] Comment on above: Result Comment: NO S HOW Performed By: #### L 500.4050, M100.7900, L500.4100, L100.0100, L501.9910, L400.2010 #### [facility] [facility] [address] [place], [address] CO2 [Moles/Vol] 24.0 mmol/L Normal 21.0-32.0 [facility] Comment on above: Result Comment: NO S HOW Performed By: #### L 500.4050, M100.7900, L500.4100, L100.0100, L501.9910, L400.2010 #### [facility] [address] [place], [address] Creatinine [Mass/Vol] 1.12 mg/dL Normal 0.70-1.30 [facility] Comment on above: Result Comment: The validity of the calculated GFR GFRAA in patients over 70 years has not been determined. Clinical correlation is essential. Performed By: #### L 500.4050, M100.7900, L500.4100, L100.0100, L501.9910, L400.2010 #### [facility] [address] [place], [address] EST GFR - AA 88 mL/min Normal >60 [facility] Comment on above: Result Comment: Afri can Norwegian GFR Calc Performed By: #### L 500.4050, M100.7900, L500.4100, L100.0100, L501.9910, L400.2010 #### [facility] [address] [place], [address] GAP 8 Normal 5-15 [facility] Comment on above: Result Comment: NO S HOW Performed By: #### L 500.4050, M100.7900, L500.4100, L100.0100, L501.9910, L400.2010 #### [facility] [address] [place], [address] GFR/1.73 sq M.predicted among non-blacks MDRD (S/P/Bld) [Vol rate/Area] 73 mL/min/{1.73_m2} Normal >60 [facility] Comment on above: Result Comment: Non- GFR Calc Performed By: #### L 500.4050, M100.7900, L500.4100, L100.0100, L501.9910, L400.2010 #### [facility] [address] [place], [address] Globulin (S) [Mass/Vol] 3.5 g/dL Normal 2.2-4.2 [facility] Comment on above: Performed By: #### L 500.4050, M100.7900, L500.4100, L100.0100, L501.9910, L400.2010 #### [facility] [address] [place], [address] Glucose [Mass/Vol] 90 mg/dL Normal 74-106 [facility] Comment on above: Result Comment: NO S HOW Performed By: #### L 500.4050, M100.7900, L500.4100, L100.0100, L501.9910, L400.2010 #### [facility] [address] [place], [address] Potassium [Moles/Vol] 4.4 mmol/L Normal 3.5-5.1 [facility] Comment on above: Result Comment: NO S HOW Performed By: #### L 500.4050, M100.7900, L500.4100, L100.0100, L501.9910, L400.2010 #### [facility] [address] [place], [address] Sodium [Moles/Vol] 139 mmol/L Normal 136-145 [facility] Comment on above: Result Comment: NO S HOW Performed By: #### L 500.4050, M100.7900, L500.4100, L100.0100, L501.9910, L400.2010 #### [facility] [address] [place], [address] T PROT 7.2 g/dL Normal 6.4-8.2 [facility] Comment on above: Result Comment: NO S HOW Performed By: #### L 500.4050, M100.7900, L500.4100, L100.0100, L501.9910, L400.2010 #### [facility] [address] [place], [address] Urea nitrogen [Mass/Vol] 17 mg/dL Normal 7-18 [facility] Comment on above: Result Comment: NO S HOW Performed By: #### L 500.4050, M100.7900, L500.4100, L100.0100, L501.9910, L400.2010 #### [facility] [address] [place], [address] Lipid Profileon 09-15-2024 Cholesterol [Mass/Vol] 190 mg/dL Normal 200 [facility] Comment on above: Result Comment: <200 mg/dL Desirable 200-240 mg/dL Borderline >240 mg/dL High Risk Performed By: #### L 500.4050, M100.7900, L500.4100, L100.0100, L501.9910, L400.2010 #### [facility] [address] [place], [address] Cholesterol in HDL [Mass/Vol] 80 mg/dL Normal [facility] Comment on above: Result Comment: The drugs N-Acetylcysteine and Metamizole may falsely depress this assay. Reference Range HDL <40 mg/dL Low HDL Cholesterol HDL >or= 60 mg/dL High HDL Cholesterol Performed By: #### L 500.4050, M100.7900, L500.4100, L100.0100, L501.9910, L400.2010 #### [facility] [address] [place], [address] Cholesterol in LDL [Mass/Vol] 100 mg/dL Normal 0-130 [facility] Comment on above: Result Comment: NO S HOW Performed By: #### L 500.4050, M100.7900, L500.4100, L100.0100, L501.9910, L400.2010 #### [facility] [address] [place], [address] Cholesterol in VLDL [Mass/Vol] 10 mg/dL Normal 5-40 [facility] Comment on above: Result Comment: NO S HOW Performed By: #### L 500.4050, M100.7900, L500.4100, L100.0100, L501.9910, L400.2010 #### [facility] [address] [place], [address] Triglyceride [Mass/Vol] 48 mg/dL Normal [facility] Comment on above: Result Comment: The drugs N-Acetylcysteine and Metamizole may falsely depress this assay. Serum Triglycerides Reference Interval Normal <150 mg/dL Borderline high 150 - 199 mg/dL High 200 - 499 mg/dL Very High > or = 500 mg/dL Performed By: #### L 500.4050, M100.7900, L500.4100, L100.0100, L501.9910, L400.2010 #### [facility] [address] [place], [address] PSA,Total - Annual Screenon 09-15-2024 PSA,TOT SCREEN 0.63 ng/mL Normal 0.00-4.00 [facility] Comment on above: Result Comment: This test was performed using the TPSA assay method for the [employer] chemistry system. Values obtained with different assay methods cannot be used interchangably. When changing PSA assays in the course of monitoring a patient, additional sequential testing should be carried out to confirm baseline values. Performed By: #### L 500.4050, M100.7900, L500.4100, L100.0100, L501.9910, L400.2010 #### [facility] [address] [place], [address] Stool Occult Blood iFOBon STOB Negative Normal [facility] Comment on above: Performed By: #### L 500.4050, M100.7900, L500.4100, L100.0100, L501.9910, L400.2010 #### [facility] [address] [place], [address] Urinalysis, Routine (Dipstic k)on 09-15-2024 BILIRUBIN URINE Negative Normal Negative [facility] Comment on above: Order Comment: Urine , Random Result Comment: NO S HOW Performed By: #### L 500.4050, M100.7900, L500.4100, L100.0100, L501.9910, L400.2010 #### [facility] [address] [place], [address] Clarity (U) Clear Normal Clear [facility] Comment on above: Order Comment: Urine , Random Result Comment: NO S HOW Performed By: #### L 500.4050, M100.7900, L500.4100, L100.0100, L501.9910, L400.2010 #### [facility] [address] [place], [address] Color (U) Yellow Normal Yellow [facility] Comment on above: Order Comment: Urine , Random Result Comment: NO S HOW Performed By: #### L 500.4050, M100.7900, L500.4100, L100.0100, L501.9910, L400.2010 #### [facility] [address] [place], [address] GLUCOSE, UR Normal Normal Normal [facility] Comment on above: Order Comment: Urine , Random Result Comment: NO S HOW Performed By: #### L 500.4050, M100.7900, L500.4100, L100.0100, L501.9910, L400.2010 #### [facility] [address] [place], [address] KETONE UR Negative Normal Negative [facility] Comment on above: Order Comment: Urine , Random Result Comment: NO S HOW Performed By: #### L 500.4050, M100.7900, L500.4100, L100.0100, L501.9910, L400.2010 #### [facility] [address] [place], [address] LEUK ESTERASE Negative Normal Negative [facility] Comment on above: Order Comment: Urine , Random Result Comment: NO S HOW Performed By: #### L 500.4050, M100.7900, L500.4100, L100.0100, L501.9910, L400.2010 #### [facility] [address] [place], [address] Nitrite Ql (U) Negative Normal Negative [facility] Comment on above: Order Comment: Urine , Random Result Comment: NO S HOW Performed By: #### L 500.4050, M100.7900, L500.4100, L100.0100, L501.9910, L400.2010 #### [facility] [address] [place], [address] OCCULT BLOOD-UR Negative Normal Negative [facility] Comment on above: Order Comment: Urine , Random Result Comment: NO S HOW Performed By: #### L 500.4050, M100.7900, L500.4100, L100.0100, L501.9910, L400.2010 #### [facility] [address] [place], [address] pH UR 7.0 Normal 5.0 - 8.0 [facility] Comment on above: Order Comment: Urine , Random Result Comment: NO S HOW Performed By: #### L 500.4050, M100.7900, L500.4100, L100.0100, L501.9910, L400.2010 #### [facility] [address] [place], [address] PROT DIPSTX Negative Normal Negative [facility] Comment on above: Order Comment: Urine , Random Result Comment: NO S HOW Performed By: #### L 500.4050, M100.7900, L500.4100, L100.0100, L501.9910, L400.2010 #### [facility] [address] [place], [address] SP.GR. DIPSTX 1.010 Normal 1.002-1.030 [facility] Comment on above: Order Comment: Urine , Random Result Comment: NO S HOW Performed By: #### L 500.4050, M100.7900, L500.4100, L100.0100, L501.9910, L400.2010 #### [facility] [address] [place], [address] UROBILI Normal Normal Normal [facility] Comment on above: Order Comment: Urine , Random Result Comment: NO S HOW Performed By: #### L 500.4050, M100.7900, L500.4100, L100.0100, L501.9910, L400.2010 #### [facility] [address] [place], [address] Lower GI hemoglobin IA Ql (S tl)on 09-01-2022 FECAL OCCULT BLOOD Negative [facility] MRI SPINE LUMBAR W/ + W/O CO NTRASTon 05-14-2018 MRI SPINE LUMBAR W/ + W/O CONTRAST ORIGINALMRI SPINE LUMBAR W/ + W/O CONTRASTPATIENT: SHARA DELEON. TECHNIQUE: Multiplanar multisequence imaging of the lumbar spine before and after the administration of IV contrast. ORDERING PROVIDER: ANTONIO NERI CLINICAL STATEMENT: lumbar degenerative disc disease, prior laminectomy in 2006, low back pain radiating down the RIGHT leg, RIGHT leg numbness, muscle cramping COMPARISON: 06/07/2016 MRI lumbar spine FINDINGS: For purposes of this dictation, it is assumed that there are 5 [id number], lumbar-type vertebrae, and the most caudal fully segmented lumbar vertebra is labeled L5. The lumbar spine demonstrates normal alignment. Vertebral bodies are normal in height. There is a normal marrow signal pattern. There is intervertebral disc loss and desiccation at the L3-L4, L4-L5 levels. There has been previous RIGHT L4 laminectomy. The conus medullaris terminates at the T12-L1 level L1-2: No stenosis. L2-3: There is an extraforaminal annular tear on the RIGHT with mild disc extrusion, abutting the exiting nerve root There is no central canal stenosis. There is very mild ligamentum flavum hypertrophy. L3-4: There is mild LEFT ligamentum flavum hypertrophy and facet arthropathy. There is no neural foraminal stenosis. L4-5: There is mild spondylosis, without central canal stenosis. There is no neural foraminal stenosis. There is mild ligamentum flavum hypertrophy and facet arthropathy. L5-S1: No stenosis. There is no abnormal intramedullary or leptomeningeal enhancement. IMPRESSION:1. Postsurgical changes with RIGHT L4 laminectomy.2. Mild extraforaminal annular tear with disc extrusion abutting the nerve root at the RIGHT L2-L3 level.3. Mild spondylosis at the L3-L4 and L4-L5 vertebral levels, not significantly changed. I have personally reviewed the images of this examination and agree with the resident's findings and interpretation. Interpreted By: Scottie Pak MDPreliminary Report By: Mitchell Zhao DOElectronically Signed By: Scottie Pak MD Dictated Date: 05/14/2018 1:37:18 PM Prelim Date: 05/14/2018 3:20:57 PM Sign Date: 05/14/2018 4:37:03 PM Normal [facility] ([place] CMPon 06-08-2017 Alanine aminotransferase (ALT) 18 ZZ Normal 10-35 [facility] ([place] Comment on above: Performed By: #### H GMP, CMP, GFR, PSA, TSH ####[address] [place], [place] [address] Albumin 4.3 G/dL Normal 3.5-5.0 [facility] ([place]) Comment on above: Performed By: #### H GMP, CMP, GFR, PSA, TSH ####[facility] [address] [place], [place] [address] Albumin/Globulin Ratio 2.0 {ratio} Normal 1.1-2.5 [facility] ([place]) Comment on above: Performed By: #### H GMP, CMP, GFR, PSA, TSH ####[address] [place], [place] [address] Alk Phos 44 ZZ Normal 40-135 [facility] ([place] Comment on above: Performed By: #### H GMP, CMP, GFR, PSA, TSH ####[facility] [address] [place], [place] [address] Aspartate aminotransferase (AST) 22 ZZ Normal 10-40 [facility] ([place] Comment on above: Performed By: #### H GMP, CMP, GFR, PSA, TSH ####[facility] [address] [place], [place] [address] Bili Total 0.2 mg/dL Normal 0.2-1.0 [facility] ([place] Comment on above: Performed By: #### H GMP, CMP, GFR, PSA, TSH ####[address] [place], [place] [address] BUN/Creatinine Ratio 12 ratio Normal 7-27 [facility] ([place]) Comment on above: Performed By: #### H GMP, CMP, GFR, PSA, TSH ####[address] [place], [place] [address] Calcium 8.8 mg/dL Normal 8.4-10.2 [facility] ([place] Comment on above: Performed By: #### H GMP, CMP, GFR, PSA, TSH ####[address] [place], [place] [address] Chloride 104 mmol/L Normal 98-107 [facility] ([place] Comment on above: Performed By: #### H GMP, CMP, GFR, PSA, TSH ####[address] [place], [place] [address] CO2 27 mmol/L Normal 22-29 [facility] ([place] Comment on above: Performed By: #### H GMP, CMP, GFR, PSA, TSH ####[address] [place], [place] [address] Creatinine 1.1 mg/dL Normal 0.6-1.2 [facility] ([place] Comment on above: Performed By: #### H GMP, CMP, GFR, PSA, TSH ####[address] [place], [place] [address] Electrolyte Balance 7.0 mEq/L Normal [facility] ([place]) Comment on above: Performed By: #### H GMP, CMP, GFR, PSA, TSH ####[address] [place], [place] [address] Globulin 2.2 G/dL Normal [facility] ([place]) Comment on above: Performed By: #### H GMP, CMP, GFR, PSA, TSH ####[address] [place], [place] [address] Glucose mass conc 90 mg/dL Normal 70-105 [facility] ([place] Comment on above: Performed By: #### H GMP, CMP, GFR, PSA, TSH ####[address] [place], [place] [address] Potassium molar conc 4.8 mmol/L Normal 3.5-5.1 [facility] ([place]) Comment on above: Performed By: #### H GMP, CMP, GFR, PSA, TSH ####[address] [place], [place] [address] Protein 6.5 G/dL Normal 6.0-8.3 [facility] ([place] Comment on above: Performed By: #### H GMP, CMP, GFR, PSA, TSH ####[address] [place], [place] [address] Sodium 138 mmol/L Normal 136-146 [facility] ([place] Comment on above: Performed By: #### H GMP, CMP, GFR, PSA, TSH ####[address] [place], [place] [address] Urea nitrogen 13.4 mg/dL Normal 7.0-18.0 [facility] ([place] Comment on above: Performed By: #### H GMP, CMP, GFR, PSA, TSH ####[address] [place], [place] [address] GFRon 06-08-2017 eGFR (non-black) mL/min/{1.73_m2} Normal [facility] ([place]) Comment on above: Result Comment: GFR Population mean for , Non- Americans Ages 20-29 = 116 mL/min/1.73 sq.m. Ages 30-39 = 107 mL/min/1.73 sq.m. Ages 40-49 = 99 mL/min/1.73 sq.m. Ages 50-59 = 93 mL/min/1.73 sq.m. Ages 60-69 = 85 mL/min/1.73 sq.m. Ages 70+ = 75 mL/min/1.73 sq.m.Chronic Kidney Disease: Less than 60 mL/min/1.73 square metersEnd Stage Renal Disease: Less than 15 mL/min/1.73 square meters Performed By: #### H GMP, CMP, GFR, PSA, TSH ####[address] [place], [place] [address] eGFR (non-black) 89 ml/min/1.73sqm Normal [facility] ([place]) Comment on above: Result Comment: GFR Population mean for , Non- Americans Ages 20-29 = 116 mL/min/1.73 sq.m. Ages 30-39 = 107 mL/min/1.73 sq.m. Ages 40-49 = 99 mL/min/1.73 sq.m. Ages 50-59 = 93 mL/min/1.73 sq.m. Ages 60-69 = 85 mL/min/1.73 sq.m. Ages 70+ = 75 mL/min/1.73 sq.m.Chronic Kidney Disease: Less than 60 mL/min/1.73 square metersEnd Stage Renal Disease: Less than 15 mL/min/1.73 square meters Performed By: #### H GMP, CMP, GFR, PSA, TSH ####[address] [place], [place] [address] HGMPon 06-08-2017 Erythrocyte distribution width Auto Ratio (RBC) 13.2 % Normal 11.5-14.5 [facility] ([place]) Comment on above: Performed By: #### H GMP, CMP, GFR, PSA, TSH ####[address] [place], [place] [address] Erythrocytes (RBC) 4.38 10 6/mcL Normal 4.04-6.13 [facility] ([place]) Comment on above: Performed By: #### H GMP, CMP, GFR, PSA, TSH ####[address] [place], [place] [address] Hematocrit (HCT) 43.2 % Normal 42.0-52.0 [facility] ([place]) Comment on above: Performed By: #### H GMP, CMP, GFR, PSA, TSH ####[address] [place], [place] [address] Hemoglobin mass conc (Bld) 15.0 G/dL Normal 14.0-18.0 [facility] ([place]) Comment on above: Performed By: #### H GMP, CMP, GFR, PSA, TSH ####[address] [place], [place] [address] MCH 34.1 pg High 27.0-31.2 [facility] ([place]) Comment on above: Performed By: #### H GMP, CMP, GFR, PSA, TSH ####[address] [place], [place] [address] MCHC mass conc (RBC) 34.7 G/dL Normal 31.8-35.4 [facility] ([place]) Comment on above: Performed By: #### H GMP, CMP, GFR, PSA, TSH ####[address] [place], [place] [address] MCV 98.5 fL High 80.0-94.0 [facility] ([place]) Comment on above: Performed By: #### H GMP, CMP, GFR, PSA, TSH ####[address] [place], [place] [address] Platelet mean volume (PMV) 9.0 fL Normal 7.4-10.4 [facility] ([place]) Comment on above: Performed By: #### H GMP, CMP, GFR, PSA, TSH ####[address] [place], [place] [address] Platelets 203 10 3/mcL Normal 130-400 [facility] ([place]) Comment on above: Performed By: #### H GMP, CMP, GFR, PSA, TSH ####[address] [place], [place] [address] WBC (Leukocytes) 5.20 10 3/mcL Normal 4.60-10.80 [facility] ([place]) Comment on above: Performed By: #### H GMP, CMP, GFR, PSA, TSH ####[address] [place], [place] [address] PSAon 06-08-2017 Prostate Specific Antigen 0.62 ng/mL Normal 0.00-4.00 [facility] ([place]) Comment on above: Performed By: #### H GMP, CMP, GFR, PSA, TSH ####[address] [place], [place] [address] TSHon 06-08-2017 Thyroid stimulating hormone (TSH) 2.24 mcIU/mL Normal 0.27-4.20 [facility] ([place]) Comment on above: Performed By: #### H GMP, CMP, GFR, PSA, TSH ####[address] [place], [place] [address] Vital Signs Date Time Vital Sign Value Performing Clinician Paddy wagner 05-27-2025 09:31-0400 Body height 177.8 cm Zebulun Beam SHIPWRIGHT APPRENTICE-C Work Phone: [facility] 05-27-2025 09:31-0400 Body mass index (BMI) [Ratio] 25.9 kg/m2 Zebulun Beam SHIPWRIGHT APPRENTICE-C Work Phone: [facility] 05-27-2025 [id number] Body weight 82.1 kg Zebulun Beam SHIPWRIGHT APPRENTICE-C Work Phone: [facility] 05-27-2025 09:31-0400 Diastolic blood pressure 77 mm[Hg] Zebulun Beam SHIPWRIGHT APPRENTICE-C Work Phone: 0(636)897-899140 [place] [address] 05-27-2025 09:31-0400 Heart rate 65 /min Zebulun Beam SHIPWRIGHT APPRENTICE-C Work Phone: 4(194)676-979840 [place] [address] 05-27-2025 09:31-0400 Respiratory rate 14 /min Zebulun Beam SHIPWRIGHT APPRENTICE-C Work Phone: 0(856)118-076940 [place] [address] 05-27-2025 09:31-0400 Systolic blood pressure 116 mm[Hg] Zebulun Beam SHIPWRIGHT APPRENTICE-C Work Phone: 2(930)528-345840 [place] [address] 05-19-2025 11:14-0400 Body height 177.8 cm Zebulun Beam SHIPWRIGHT APPRENTICE-C Work Phone: 9(377)706-736340 [place] [address] 05-19-2025 11:14-0400 Body mass index (BMI) [Ratio] 25.2 kg/m2 Zebulun Beam SHIPWRIGHT APPRENTICE-C Work Phone: 3(939)335-880040 [place] [address] 05-19-2025 11:14-0400 Body temperature 98.2 [degF] Zebulun Beam SHIPWRIGHT APPRENTICE-C Work Phone: 8(707)931-536240 [place] [address] 05-19-2025 11:14-0400 Body weight 79.6 kg Zebulun Beam SHIPWRIGHT APPRENTICE-C Work Phone: 3(265)044-722340 [place] [address] 05-19-2025 11:14-0400 Diastolic blood pressure 80 mm[Hg] Zebulun Beam SHIPWRIGHT APPRENTICE-C Work Phone: 8(903)085-613440 [place] [address] 05-19-2025 11:14-0400 Heart rate 51 /min Zebulun Beam SHIPWRIGHT APPRENTICE-C Work Phone: 0(211)469-821740 [place] [address] 05-19-2025 11:14-0400 Respiratory rate 18 /min Zebulun Beam SHIPWRIGHT APPRENTICE-C Work Phone: 7(542)258-566340 [place] [address] 05-19-2025 11:14-0400 SaO2% (BldA) [Mass fraction] 100 % Zebulun Beam SHIPWRIGHT APPRENTICE-C Work Phone: 5(512)200-834740 [place] [address] 05-19-2025 11:14-0400 Systolic blood pressure 124 mm[Hg] Zebulun Beam SHIPWRIGHT APPRENTICE-C Work Phone: [facility] 04-20-2025 15:37-0400 Body height 177.[address] Rigoberto Reddy MD Work Phone: 1(307)655-182810 [place] [address] 04-20-2025 15:35-0400 Body mass index (BMI) [Ratio] 25.4 kg/m2 Dr. Rigoberto Reddy MD Work Phone: 0(395)616-772610 [place] [address] 04-20-2025 15:35-0400 Body temperature 98.1 [degF] Dr. Rigoberto Reddy MD Work Phone: 9(119)406-743110 [place] [address] 04-20-2025 15:35-0400 Body weight 80.[address] Rigoberto Reddy MD Work Phone: 7(056)511-333810 [place] [address] 04-20-2025 15:35-0400 Diastolic blood pressure 67 mm[Hg] Dr. Rigoberto Reddy MD Work Phone: 1(902)665-164410 [place] [address] 04-20-2025 15:35-0400 Heart rate 66 /min Dr. Rigoberto Reddy MD Work Phone: 1(892)564-349310 [place] [address] 04-20-2025 15:35-0400 Respiratory rate 18 /min Dr. Rigoberto Reddy MD Work Phone: 8(860)920-671810 [place] [address] 04-20-2025 15:35-0400 SaO2% (BldA) [Mass fraction] 96 % Dr. Rigoberto Reddy MD Work Phone: 2(193)796-896510 [place] [address] 04-20-2025 15:35-0400 Systolic blood pressure 106 mm[Hg] Dr. Rigoberto Reddy MD Work Phone: 8(481)113-603410 [place] [address] 04-08-2025 08:57-0400 Body temperature 97.7 [degF] Dr. Rigoberto Reddy MD Work Phone: 3(534)480-633410 [place] [address] 04-08-2025 08:57-0400 Diastolic blood pressure 88 mm[Hg] Dr. Rigoberto Reddy MD Work Phone: 1(741)896-248510 [place] [address] 04-08-2025 08:57-0400 Heart rate 46 /min Dr. Rigoberto Reddy MD Work Phone: 6(986)703-276510 [place] [address] 04-08-2025 08:57-0400 Respiratory rate 16 /min Dr. Rigoberto Reddy MD Work Phone: 8(796)660-209310 [place] [address] 04-08-2025 08:57-0400 SaO2% (BldA) [Mass fraction] 99 % Dr. Rigoberto Reddy MD Work Phone: 2(520)530-000010 [place] [address] 04-08-2025 08:57-0400 Systolic blood pressure 125 mm[Hg] Dr. Rigoberto Reddy MD Work Phone: 5(919)740-294510 [place] [address] 04-08-2025 07:05-0400 Body height 177.[address] Rigoberto Reddy MD Work Phone: 4(619)591-650510 [place] [address] 04-08-2025 07:05-0400 Body mass index (BMI) [Ratio] 25.8 kg/m2 Dr. Rigoberto Reddy MD Work Phone: 2(027)179-706610 [place] [address] 04-08-2025 07:05-0400 Body weight 81.[address] Rigoberto Reddy MD Work Phone: 9(015)131-194510 [place] [address] 01-28-2025 11:59-0400 Body height 177.[address] Rigoberto Reddy MD Work Phone: 3(588)462-345610 [place] [address] 01-28-2025 11:59-0400 Body temperature 97.1 [degF] Dr. Rigoberto Reddy MD Work Phone: 9(066)162-042210 [place] [address] 01-28-2025 11:59-0400 Diastolic blood pressure 92 mm[Hg] Dr. Rigoberto Reddy MD Work Phone: 0(849)940-200910 [place] [address] 01-28-2025 11:59-0400 Heart rate 64 /min Dr. Rigoberto Reddy MD Work Phone: 5(512)796-740810 [place] [address] 01-28-2025 11:59-0400 Respiratory rate 15 /min Dr. Rigoberto Reddy MD Work Phone: 1(336)728-613810 [place] [address] 01-28-2025 11:59-0400 SaO2% (BldA) [Mass fraction] 100 % Dr. Rigoberto Reddy MD Work Phone: 8(469)419-326110 [place] [address] 01-28-2025 11:59-0400 Systolic blood pressure 133 mm[Hg] Dr. Rigoberto Reddy MD Work Phone: [phone] [place] [address] 12-04-2024 09:51-0500 Body temperature 98.4 [degF] Dr. Rigoberto Reddy MD Work Phone: [phone] [place] [address] 12-04-2024 09:51-0500 Diastolic blood pressure 56 mm[Hg] Dr. Rigoberto Reddy MD Work Phone: [phone])[phone] [place] [address] 12-04-2024 09:51-0500 Heart rate 58 /min Dr. Rigoberto Reddy MD Work Phone: [phone] [place] [address] 12-04-2024 09:51-0500 Respiratory rate 15 /min Dr. Rigoberto Reddy MD Work Phone: [phone] [place] [address] 12-04-2024 09:51-0500 SaO2% (BldA) [Mass fraction] 98 % Dr. Rigoberto Reddy MD Work Phone: [phone] [place] [address] 12-04-2024 09:51-0500 Systolic blood pressure 100 mm[Hg] Dr. Rigoberto Reddy MD Work Phone: [facility] Encounters Encounter Date Encounter Type Care Provider Facility Start: 05-27-2025 ambulatory Zebulun Beam Facility:[facility] Start: 05-27-2025 End: 05-27-[address] Uzair Gaffney MD -[facility] Work Phone: Start: 05-27-2025 End: 05-27-2025 ambulatory Zebulun Beam SHIPWRIGHT APPRENTICE-C Work Phone: -[facility] Start: 05-19-[address] Anthony Medina MD -[facility] Start: 05-19-2025 End: 05-19-[address] Anthony Medina MD -[facility] Work Phone: Start: 05-19-2025 End: 05-19-2025 ambulatory Zebulun Beam SHIPWRIGHT APPRENTICE-C Work Phone: -[facility] Start: 04-20-[address] Anthony Medina MD -[facility] Start: 04-20-2025 End: 04-20-[address] Anthony Medina MD -[facility] Work Phone: Start: 04-20-2025 End: 04-20-[address] Rigoberto Reddy MD Work Phone: [facility] Work Phone: Start: 04-08-2025 End: 04-08-2025 Emergency department patient visit Dr. Rigoberto Reddy MD Work Phone: -Emergency Department Work Phone: Start: 03-05-2025 [facility] Work Phone: Start: 03-05-2025 ambulatory [facility] Facility [facility] Start: 01-29-2025 Encounter for genera l adult medical examination without abnormal findings [facility] Start: 01-28-2025 End: 01-28-2025 Emergency department patient visit Dr. Rigoberto Reddy MD Work Phone: -Emergency Department Work Phone: Start: 01-28-2025 End: 01-28-[address] Rigoberto Reddy MD Work Phone: [facility] Work Phone: Start: 01-28-2025 End: 01-28-2025 Patient encounter procedure Samuel Howard SHIPWRIGHT APPRENTICE-C -Cardiovascular Services Work Phone: Start: 01-28-2025 End: 01-28-2025 ambulatory [facility] Facility:[facility] Start: 01-20-2025 End: 01-20-[address] Rigoberto Reddy MD Work Phone: [facility] Work Phone: Start: 01-20-2025 End: 01-20-2025 Patient encounter procedure Samuel Howard SHIPWRIGHT APPRENTICE-C -[facility] Start: 01-20-2025 End: 01-20-2025 ambulatory Zebulun Beam Facility:[facility] Start: 01-12-2025 End: 01-12-2025 Patient encounter procedure Jamari Burrell [facility] -[facility] Work Phone: Start: 01-12-2025 End: 01-12-2025 ambulatory Jamari ARROYO Facility:[facility] Start: 12-04-2024 End: 12-04-2024 Patient encounter procedure Abhilash Cho PA -[facility] Work Phone: Start: 12-04-2024 End: 12-04-2024 ambulatory Abhilash Cho CRUZ Facility:[facility] Start: 09-17-2024 End: 09-17-2024 ambulatory Jamari ARROYO Facility:[facility] Start: 09-15-2024 End: 09-15-2024 ambulatory Jamari ARROYO Facility:[facility] Start: 09-01-2022 Chart abstracting Gaby Ivy MA [facility] Start: 05-14-2018 Ambulatory ANTONIO NERI Fa cility:[facility] Start: 06-08-2017 End: 06-12-2017 Ambulatory IRVING SALTER Facility:[facility] Procedures Date Procedure Procedure Detail Performing Clinician Start: 05-19-2025 D-dimer assay, quantitative Zebulun Beam SHIPWRIGHT APPRENTICE-C Work Phone: Comment on above: D-Dimer ELEVATED (>0 .49): Additional studies and clinicalassessments are indicated to conclude diagnosis of:Deep Vein Thrombosis (DVT) or Pulmonary Embolism (PE) Start: 04-08-[address] Rigoberto Reddy MD Work Phone: Start: 04-08-2025 CT angiography of ch est with contrast Dr. Rigoberto Reddy MD Work Phone: Start: 09-01-2022 FECAL OCCULT BLOOD TEST [facility] Provider Start: 05-11-2020 Colonoscopy Gaby Ivy MA Plan of Treatment Date Care Activity Detail Author Start: 08-17-2026 LIPID SCREEN LIPID SCREEN [facility] Start: 05-27-2025 Evaluation of diagnostic study results [facility] Start: 05-19-2025 [facility] Start: 05-11-2025 Colonoscopy COLONOSCOPY [facility] Start: 05-11-2025 COLORECTAL CANCER SCREENING COLORECTAL CANCER SCREENING [facility] Start: 04-20-2025 CBC W Auto Differential panel - Blood [facility] Start: 04-20-2025 Comprehensive metabolic 2000 panel - Serum or Plasma [facility] Start: 04-20-2025 D-dimer assay, quantitative [facility] Start: 04-20-2025 Lactate dehydrogenase measurement [facility] Start: 04-20-2025 Partial thromboplastin time, activated [facility] Start: 04-20-2025 Prothrombin time [facility] Start: 04-20-2025 [facility] Start: 04-08-2025 [facility] Start: 01-28-2025 [facility] Start: 09-01-2023 FECAL OCCULT BLOOD FECAL OCCULT BLOOD [facility] Start: 07-13-2022 Influenza vaccination INFLUENZA (#1) [facility] Start: 11-12-2021 DEPRESSION ASSESSMENT DEPRESSION ASSESSMENT [facility] Start: 2020 SHINGRIX VACCINE (1 of 2) SHINGRIX VACCINE (1 of 2) [facility] Start: 2015 COLOGUARD (FIT-DNA) COLOGUARD (FIT-DNA) [facility] Start: [address] COLONOGRAPHY [facility] Start: 2015 DIABETES SCREEN DIABETES SCREEN [facility] Start: 2015 SIGMOIDOSCOPY SIGMOIDOSCOPY [facility] Start: 1989 Urine microalbumin profile DTAP,TDAP,TD (1 - Tdap) [facility] Start: 1988 HEPATITIS C SCREENING HEPATITIS C SCREENING [facility] Start: 1988 HIV SCREENING HIV SCREENING [facility] Start: 01-25-1971 COVID-19 VACCINE (#1) COVID-19 VACCINE (#1) [facility] Start: 1970 HEPATITIS B (1 of 3 - 3-dose series) HEPATITIS B (1 of 3 - 3-dose series) [facility] Alanine aminotransfe rase [Enzymatic activity/volume] in Serum or Plasma [facility] Albumin [Mass/volume ] in Serum or Plasma [facility] Alkaline phosphatase [Enzymatic activity/volume] in Serum or Plasma [facility] Anion gap in Serum o r Plasma [facility] Bilirubin, total measurement [facility] BUN/Creatinine ratio [facility] Calcium [Mass/volume ] in Serum or Plasma [facility] Carbon dioxide, tota l [Moles/volume] in Central venous blood [facility] Creatinine [Mass/vol ume] in Serum or Plasma [facility] D-dimer assay, quantitative [facility] Erythrocyte mean corpuscular volume determination [facility] Glucose [Mass/volume ] in Serum or Plasma [facility] Hematocrit [Volume Fraction] of Blood [facility] Hemoglobin [Mass/vol ume] in Blood [facility] INR in Blood by Coag ulation assay [facility] Leukocytes [#/volume ] in Blood [facility] Mean corpuscular hem oglobin concentration determination [facility] Mean corpuscular hem oglobin determination [facility] Measurement of renal function [facility] Neutrophil count [place] Neutrophil percent differential count [facility] Patient Education [facility] Work Phone: Patient referral [place] Work Phone: Platelets [#/volume] in Blood [facility] Potassium measurement [facility] Red blood cell count [facility] Red cell distributio n width determination [facility] Serum chloride measurement [facility] Sodium measurement [facility] Total protein measurement [facility] Urea nitrogen [Mass/ volume] in Serum or Plasma [facility] Immunizations Immunization Date Immunization Notes Care Provider Fa cility 08-16-2020 influenza, seasonal, injectable Gaby Ivy MA [facility] 08-19-2019 influenza, seasonal, injectable Gaby Ivy MA [facility] 09-14-2017 Influenza, injectabl e, Madin Heather Canine Kidney, preservative free, quadrivalent Gaby Ivy MA [facility] 08-12-2014 influenza, seasonal, injectable Gaby Ivy MA [facility] 09-07-2009 novel influenza-H1N1 -09, preservative-free, injectable Gaby Ivy MA [facility] Payers Date Payer Category Payer Self-pay 2019 Private Health Insurance [employer] A ETNA CHOICE POS II [id number] 2019-Present [phone] [address] [place] [address] POS [id number] 2017 Unknown [id number] Private Health Insurance [id number] Unknown [id number] 62 Unknown [id number] [id number] 62 Unknown [id number] 2.16.840.1.262979.3.579.2.4 62 Unknown [id number] 2.16.840.1.500670.3.579.2.4 62 Unknown [id number] 2.16.840.1.353718.3.579.2.4 62 Unknown [id number] 2.16.840.1.616526.3.579.2.4 62 Unknown [id number] 2.16.840.1.365901.3.579.2.4 62 Unknown [id number] 2.16.840.1.847906.3.579.2.4 62 Unknown [id number] 2.16.840.1.637255.3.579.2.4 62 Unknown [id number] 2.16.840.1.705468.3.579.2.4 62 Unknown [id number] 2.16.840.1.613304.3.579.2.4 62 Unknown [id number] 2.16.840.1.214731.3.579.2.4 62 Unknown [id number] 2.16.840.1.739713.3.579.2.4 62 Unknown [id number] 2.16.840.1.037758.3.579.2.4 62 Unknown [id number] 2.16.840.1.089289.3.579.2.4 62 Unknown [id number] 2.16.840.1.629534.3.579.2.4 62 Social History Date Type Detail Facility Start: 04-01-2020 End: 04-20-2025 Tobacco smoking status NHIS Never smoked tobacco [facility] Start: 04-01-2020 Tobacco use and exposure Smokeless tobacco non-user [facility] Start: 10-18-2020 Alcohol intake Not Asked Jose mejia [facility] Start: 1970 Sex Assigned At Not on file [facility] Start: 01-28-2025 End: 02-04-2025 Sex Male (finding) [facility] Start: 1970 Sex Assigned At Male [facility] Start: 05-07-2025 Tobacco smoking stat us NHIS Ex-smoker (finding) [facility] Clinical Notes 08-18-2021 to 05-19-2025 Note Date & Type Note Facility 05-19-2025 Progress note [facility] 04-20-2025 Evaluation note Diagnosis Onset Date Resolution Deep vein thrombosis (DVT) noneactive April 20, 2025 3 :22pm Deep vein thrombosis (DVT) noneactive May 19, 2025 1 0:14am [facility] Work Phone: 1(746) 193-234205-28-2025 Discharge summary [facility] Medical Records Department [address] [place] [address] Emergency Department Summary 04/08/25 MR#: [id number] Acct: [id number] Name: SHARA DELEON Rep #:[id number] : 1970 54 From: Tone Mata MD PCP: Samuel Howard SHIPWRIGHT APPRENTICE-C Status:REG ER Location: ED HPI History of Present Illness Chief Complaint: Shortness of Breath Narrative Narrative: 54-year-old male past medical history of DVTs, having shortness of breath for 2 months. He relates history that he was diagnosed with DVTs and started Eliquis a few months ago. He has not missed a dose. However, he is concerned that he has a pulmonary embolism because all of his brothers had to start blood thinnersand his mother also had pulmonary emboli. He denies any fevers or chills, no cough. He does not have follow-up with hematology/oncology until the next few weeks. [facility] Medical History Back pain Limb weakness Home Medications ?Medication ?Instructions ?Recorded ?Last Taken ?Type Boostrix Tdap 2.5 Lf unit-8 mcg-5 0.5 ml IM ONCE #1 mL 08/28/22 Unknown Clinic Lf/0.5 mL intramuscular syringe (diphth,pertus(acell),tetanus) Flucelvax Quad 1357-2586 (PF) 60 0.5 ml IM ONCE #0.5 m L 08/28/22 Unknown Clinic mcg (15 mcg x 4)/0.5 mL IM syringe (flu vac qs 2021(6 ms up)CD(PF)) apixaban 5 mg (74 tabs) tablets in See Rx Instructions PO .COMPLEX 01/28/25 Unknown Rx a dose pack ([employer] DVT-PE Treat #74 tabs 30D Start) sulfacetamide sodium 10 % topical 1 applic topical QDA Y 03/05/25 Unknown 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 No fevers or chills, no other symptoms. EXAM Physical Exam Narrative Exam Narrative: Afebrile. Vital signs noted. Nontoxic-appearing. Cardiovascular examination of is a regular rate and rhythm. Lungs are clear to auscultation bilaterally. Abdomen is soft nontender with normal active bowel sounds. Neurovasc intact bilateral lower extremities. Palpable dorsalis pedis pulses. Const Vital Signs: 04/08/25 07:05 04/08/25 07:21 Temperature 97.8 F Temperature Source Oral Pulse Rate 60 Respiratory Rate 16 Respiratory Effort Normal Respiratory Depth Normal Respiratory Pattern Normal Blood Pressure 144/90 H Blood Pressure Mean 108 Pulse Ox 100 Oxygen Delivery Method Room Air Room Air MDM MDM MDM Narrative Medical decision making narrative: Differential diagnosis includes but not limited to pulmonary emboli versus anxiety versus pneumoniaversus pneumothorax. History and physical does not support pneumonia or pneumothorax. Pulse ox is 100% on room air without evidence of hypoxia. He is not tachycardic. I had a discussion with the patient that treatment for pulmonary emboli and DVT is being on Eliquis. He hasnot missed a dose. I do feel that there is a strong anxiety component regardingthis. He is mildly adamant that CTA should be performed to look for clot burden. I will look for other source of his subjective dyspnea and feeling thathe cannot take a deep breath at the lung parenchyma. I will also check a CBC and a BMP to lookfor other causes such as anemia but clinically I do not feel that he has a low hemoglobin. I reviewed his laboratory work and he has normal white count of 6.3 with hemoglobin normal at 15.5,no anemia. Platelet count normal at 251. Electrolyte panel grossly unremarkable. I reviewed the radiology report of the CT of the chest/CTA and there is no evidence of a pulmonary embolism, no pneumonia, no pneumothorax. At this point in time, as his pulse ox is 100% on room air and heis already pete blood thinner treating his DVTs I feel he can be discharged to follow-up with a hand worker oncologist. I do not feel he requires observationor admission. He was told to continue the use of his blood thinner/Eliquis. Disposition is discharged home in stable condition. History & Record Review Discussion w/independent historian: Patient Additional record(s) reviewed:: Prior ED visit (Had outpatient ultrasound which showed DVT of the soleus vein.) Lab Data Attestation: I reviewed the patient's lab results. Labs: Laboratory Results - last 24 hr 04/08/25 07:26 WBC 6.3 RBC 4.58 L Hgb 15.5 Hct 43.1 MCV 94.1 H MCH 33.8 H MCHC 36.0 RDW Std Deviation 44.0 H RDW Coeff of Dorie 12.7 Plt Count 251 MPV 9.1 Immature Gran % (Auto) 0.300 Neut % (Auto) 45.8 L Lymph % (Auto) 39.8 [place] % (Auto) 11.8 H Eos % (Auto) 1.8 Baso % (Auto) 0.5 Absolute Neuts (auto) 2.9 Absolute Lymphs (auto) 2.49 Nucleated RBC % 0 Sodium 138 Potassium 4.1 Chloride 106 Carbon Dioxide 21.9 Anion Gap 10 BUN 14 Creatinine 0.97 Estim Creat Clear Calc 89.89 Est GFR (MDRD) Non-Af 92 BUN/Creatinine Ratio 14.1 Glucose 91 Calcium 8.9 Radiography Diagnostic Testing: Clinical Impression(s) from Imaging Studies Chest CTA 04/08/25 07:18 IMPRESSION: No evidence of pulmonary embolism. The lungs are clear. Reading Location: [place] [address] Discharge Plan Triage Chief Complaint: Shortness of Breath ED Provider: Tone Mata Dx/Rx/DC Orders Clinical Impression: Dyspnea, History of deep vein thrombosis (DVT) of lower extremity Instructions: ED Dyspnea Prescriptions: No Action Boostrix Tdap 2.5-8-5 Lf-mcg-Lf/0.5mL syringe 0.5 ml IM ONCE Qty: 1 0RF Flucelvax Quad 0732-8161 (PF) 60 mcg (15 mcg x 4)/0.5 mL syringe 0.5 ml IM ONCE Qty: 0.5 0RF sulfacetamide sodium 10 % cleanser 1 applic topical QDAY Eliquis DVT-PE Treat 30D Start 5 mg (74 tabs) tablets,dose pack See Rx Instructions .ROUTE .COMPLEX Qty: 74 0RF Rx Instructions: orally per package directions Primary Care Provider: Samuel Howard Referrals: Samuel Howard, SHIPWRIGHT APPRENTICE-C [Primary Care Provider] - Activity Restrictions/Additional Instructions: Continue your Eliquis as previously directed. Follow-up with hematology/oncology as scheduled. Return with new or worsening symptoms. Print Language: [place] Disposition Disposition: Home, Self Care What to do if you have Problems For any increased pain, shortness of breath, bleeding, nausea or vomiting, chestpain, or any unexpected problems, contact your Primary Care Provider. Call [facility] ([phone]) or report tothe closest Emergency Room. Call 911 if necessary. 04/08/25 0848 Cosigner Signature (if applicable): CC: Samuel Howard ~ Signed [facility]05-28-2025 Radiology Diagnostic study note [facility] Imaging Services [address] [place] [address] CTA Chest W/WO Contrast MR#: [id number] Acct: [id number] Name: SHARA DELEON Rep #: [id number] : 1970 M 54 From: Robin Wan MD PCP: Bautista Howardchelsea [facility] SHIPWRIGHT APPRENTICE-C Status: REG ER Study:CTA Chest W/WO Contrast Date of Exam: 04/08/25 Exam# [id number] Ordering Dr: Tone Mata MD PROCEDURE: CTA CHEST W/WO CONTRAST 04/08/2025 REASON FOR EXAM: HISTORY OF DVT, SHORTNESS OF BREATH TECHNIQUE: CTA axial imaging of the chest with intravenous contrast. Multiplanar and multisequence images wereobtained. PATIENT PREPARATION: Per protocol CONTRAST: Isovue 370 VOLUME: 100 mL One or more dose reduction techniques were used (e.g., Automated exposure control, adjustment of the mA and/or kV according to patient size, use of iterative reconstruction technique). RADIATION DOSE SUMMARY: CTDlvol: 10.5 mGy DLP: 402.01 mGycm . COMPARISON: None FINDINGS: Hardware: None Lymph nodes: Small benign-appearing mediastinal lymph nodes. Heart: The heart is nonenlarged. No coronary calcification is seen. Thoracic Aorta: No thoracic aortic aneurysm or dissection. Pulmonary Vessels: No evidence of acute pulmonary emboli through the major subsegmental branches. Lungs and Airways: Mild dependent atelectasis. Pleura: No pleural effusion. No pneumothorax. Upper Abdomen: Visualized portions of the upper abdominal viscera are unremarkable. Bones: Unremarkable. CT/CTA Chest W/WO Contrast IMPRESSION: No evidence of pulmonary embolism. The lungs are clear. Reading Location: [facility] CC: Dr. Tone Mata MD; [facility] SHIPWRIGHT APPRENTICE-C Beam ~ Gas Systems Worker: Signed [facility]03-19-2025 Discharge summary [facility] Medical Records Department [address] [place] [address] Emergency Department Summary 01/28/25 MR#: [id number] Acct: [id number] Name: SHARA DELEON Rep #:[id number] : 1970 54 From: Karri valentin DO PCP: Samuel Howard Cristina SHIPWRIGHT APPRENTICE-C Status:PRE ER Location: ED HPI History of Present Illness Chief Complaint: Lower Extremity Injury Narrative Narrative: Chief complaint and HPI: Right lower extremity DVT. 54-year-old gentleman with no significant past medical history presents from radiology for right lower extremity DVT. Patient states for the past year he has been having intermittentpain in his right calf compared to his left. He states that he felt like his right calf is slightly larger than the left. He states he did not think anything of it until his brother was recently diagnosed with a DVT so he decidedto have this further evaluated outpatient with his PCP. Blood work was obtainedas well as ultrasound. Patient had his ultrasound performed prior to arrival that showed a right lower extremity DVT. He denies any chest pain, shortness ofbreath, lightheadedness. Review of systems: See HPI Medications: As listed on the chart Allergies: As listed on the chart PFSH: Per chart Vital signs: As listed on the chart. Reviewed. Physical exam: Gen: A&O x3, NAD Head: Normocephalic, atraumatic Eyes: No sclera icterus, conjunctiva clear ENT: Moist mucous membranes Neck: Trachea midline, No JVD CV: RRR, no murmurs Resp: Lungs CTA BL, no w/r/c Musc: Full ROM, no deformity, minimal tenderness to the right lower calf compared to the left-no erythema/warmth/swelling of either extremity, DP/PT pulse +2 Skin: Warm, dry Neuro: Alert, oriented, grossly intact, sensation intact Psych: Cooperative, appropriate mood and affect PFS PFS Medical History Back pain Limb weakness Home Medications ?Medication ?Instructions ?Recorded ?Last Taken ?Type Boostrix Tdap 2.5 Lf unit-8 mcg-5 0.5 ml IM ONCE #1 mL 08/28/22 Unknown Clinic Lf/0.5 mL intramuscular syringe (diphth,pertus(acell),tetanus) Flucelvax Quad 6961-8799 (PF) 60 0.5 ml IM ONCE #0.5 m L 08/28/22 Unknown Clinic mcg (15 mcg x 4)/0.5 mL IM syringe (flu vac qs 2021(6 ms up)CD(PF)) apixaban 5 mg (74 tabs) tablets in See Rx Instructions PO .COMPLEX 01/28/25 Unknown Rx a dose pack (Eliquis DVT-PE Treat #74 tabs 30D Start) Allergy/AdvReac Type Severity Reaction Status Date / Time No Known Allergies Allergy Verified 01/28/25 12:02 Family History (Updated 12/31/23 @ 09:02 by Sandro Corbin SHIPWRIGHT APPRENTICE, SHIPWRIGHT APPRENTICE-C) Mother Colon cancer Pancreatic cancer Blood clotting disorder Sister Blood clotting disorder Brother Blood clotting disorder Surgical History History of back surgery Social History Smoking Status: Never smoker alcohol intake: current Alcohol type: beer EXAM Physical Exam Const Vital Signs: 01/28/25 11:59 Temperature 97.1 F L Temperature Source Temporal Pulse Rate 64 Respiratory Rate 15 Blood Pressure 133/92 H Blood Pressure Mean 105 Pulse Ox 100 Oxygen Delivery Method Room Air MDM MDM MDM Narrative Medical decision making narrative: 54-year-old gentleman with no significant past medical history presents from radiology for right lower extremity DVT. Patient states he has been having intermittent pain in his right calf for a year.He obtain an ultrasound prior to arrival that shows an acute DVT in the right soleus vein. No DVT on the left. On presentation, vitals are stable other than some mild hypertension. Hedenies any lightheadedness, chest pain, shortness of breath, syncope. I do not think any further workup is needed such as labs or imaging. Patient has no contradictions to anticoagulation. 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 I did explain to him that he will need to be placed on a blood thinner, Eliquis. I explained to him that this can increase spontaneous bleeding as well as bleeding with trauma or injury. I explained to him that if he develops any injury he needs to be evaluated in the emergency department for bleeding. Heconfirmed understanding the plan. Patient discharged home with prescription for Eliquis. He needs follow-up with his PCP. Return precautions explained. He confirmed understanding of the plan. Impression: 1. Right lower extremity DVT Discharge Plan Triage Chief Complaint: Lower Extremity Injury ED Provider: Karri Escobedo Dx/Rx/DC Orders Clinical Impression: DVT (deep venous thrombosis) Instructions: DVT Complications, Anticoagulants, DVT Tx, ED Deep Vein Thrombosis (DVT) Prescriptions: New Eliquis DVT-PE Treat 30D Start 5 mg (74 tabs) tablets,dose pack See Rx Instructions .ROUTE .COMPLEX Qty: 74 0RF Rx Instructions: orally per package directions No Action Boostrix Tdap 2.5-8-5 Lf-mcg-Lf/0.5mL syringe 0.5 ml IM ONCE Qty: 1 0RF Flucelvax Quad [id number] (PF) 60 mcg (15 mcg x 4)/0.5 mL syringe 0.5 ml IM ONCE Qty: 0.5 0RF Primary Care Provider: Samuel Howard Referrals: Samuel Howard, SHIPWRIGHT APPRENTICE-C [Primary Care Provider] - 3-5 Days Activity Restrictions/Additional Instructions: Follow-up with your primary care physician. You need to be careful while being on blood thinners asblood thinners increase the risk of bleeding with injury aswell as spontaneous bleeding. Let your job know that you were started on blood thinners. Print Language: [place] Disposition Disposition: Home, Self Care What to do if you have Problems For any increased pain, shortness of breath, bleeding, nausea or vomiting, chestpain, or any unexpected problems, contact your Primary Care Provider. Call [facility] ([phone]) or report tothe closest Emergency Room. Call 911 if necessary. 01/28/25 1254 Cosigner Signature (if applicable): CC: Samuel MONK SHIPWRIGHT APPRENTICE-Cristina Howard ~ Signed [facility]03-03-2025 Evaluation note* Diagnosis Onset Date Resolution Status Admit Date Encounter for drapery and 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 pa dical examination acute January 12, 2025 8:39am [facility] Work Phone: 1(418) 968-133403-03-2025 Evaluation note* Diagnosis Onset Date Resolution Status Admit Date Encounter for drapery and 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 medical examination acute January 12 8:39am Deep vein thrombosis (DVT) noneactiv e April 20, 2025 3:22pm [facility] Work Phone: [phone] Evaluation note* Diagnosis Onset Date Resolution Status Admit Date Sinusitis, acute acute December 04, 2024 9:28am Encounter for drapery and 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 medical examination acute January 12 8:39am [facility] Work Phone: [phone] NoteHNO ID: [id number] Author: Jayna Tellez LPN Service: ? Author Type: ? Type: Progress Notes Filed: 08/18/2021 5:17 PM Note Text: Health risk assessment done at [facility] summary Author Karri Escobedo [facility] Note Date/Time January 28, 2025 12: 54pm [facility] Medical Records Department [address] [place] [address] Emergency Department Summary 01/28/25 MR#: [id number] Acct: [id number] Name: SHARA DELEON Rep #:[id number] : 1970 54 From: Karri bernabeett PCP: Samuel Howard SHIPWRIGHT APPRENTICE-C Status:PRE ER Location: ED HPI History of Present Illness Chief Complaint: Lower Extremity Injury Narrative Narrative: Chief complaint and HPI: Right lower extremity DVT. 54-year-old gentleman with no significant past medical history presents from radiology for right lower extremity DVT. Patient states for the past year he has been having intermittentpain in his right calf compared to his left. He states that he felt like his right calf is slightly larger than the left. He states he did not think anything of it until his brother was recently diagnosed with a DVT so he decidedto have this further evaluated outpatient with his PCP. Blood work was obtainedas well as ultrasound. Patient had his ultrasound performed prior to arrival that showed a right lower extremity DVT. He denies any chest pain, shortness ofbreath, lightheadedness. Review of systems: See HPI Medications: As listed on the chart Allergies: As listed on the chart PFSH: Per chart Vital signs: As listed on the chart. Reviewed. Physical exam: Gen: A&O x3, NAD Head: Normocephalic, atraumatic Eyes: No sclera icterus, conjunctiva clear ENT: Moist mucous membranes Neck: Trachea midline, No JVD CV: RRR, no murmurs Resp: Lungs CTA BL, no w/r/c Musc: Full ROM, no deformity, minimal tenderness to the right lower calf compared to the left-no erythema/warmth/swelling of either extremity, DP/PT pulse +2 Skin: Warm, dry Neuro: Alert, oriented, grossly intact, sensation intact Psych: Cooperative, appropriate mood and affect PFSH PFSH Medical History Back pain Limb weakness Home Medications ?Medication ?Instructions ?Recorded ?Last Taken ?Type Boostrix Tdap 2.5 Lf unit-8 mcg-5 0.5 ml IM ONCE #1 mL 08/28/22 Unknown Clinic Lf/0.5 mL intramuscular syringe (diphth,pertus(acell),tetanus) Flucelvax Quad [id number] (PF) 60 0.5 ml IM ONCE #0.5 m L 08/28/22 Unknown Clinic mcg (15 mcg x 4)/0.5 mL IM syringe (flu vac qs 2021(6 ms up)CD(PF)) apixaban 5 mg (74 tabs) tablets in See Rx Instructions PO .COMPLEX 01/28/25 Unknown Rx a dose pack (Eliquis DVT-PE Treat #74 tabs 30D Start) Allergy/AdvReac Type Severity Reaction Status Date / Time No Known Allergies Allergy Verified 01/28/25 12:02 Family History (Updated 12/31/23 @ 09:02 by Sandro Corbin SHIPWRIGHT APPRENTICE, SHIPWRIGHT APPRENTICE-C) Mother Colon cancer Pancreatic cancer Blood clotting disorder Sister Blood clotting disorder Brother Blood clotting disorder Surgical History History of back surgery Social History Smoking Status: Never smoker alcohol intake: current Alcohol type: beer EXAM Physical Exam Const Vital Signs: 01/28/25 11:59 Temperature 97.1 F L Temperature Source Temporal Pulse Rate 64 Respiratory Rate 15 Blood Pressure 133/92 H Blood Pressure Mean 105 Pulse Ox 100 Oxygen Delivery Method Room Air MDM MDM MDM Narrative Medical decision making narrative: 54-year-old gentleman with no significant past medical history presents from radiology for right lower extremity DVT. Patient states he has been having intermittent pain in his right calf for a year. He obtain an ultrasound prior to arrival that shows an acute DVT in the right soleus vein. No DVT on the left. On presentation, vitals are stable other than some mild hypertension. Hedenies any lightheadedness, chest pain, shortness of breath, syncope. I do not think any further workup is needed such as labs or imaging. Patient has no contradictions to anticoagulation. 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 I did explain to him that he will need to be placed on a blood thinner, Eliquis. I explained to him that this can increase spontaneous bleeding as well as bleeding with trauma or injury. I explained to him that if he develops any injury he needs to be evaluated in the emergency department for bleeding. He confirmed understanding the plan. Patient discharged home with prescription for Eliquis. He needs follow-up with his PCP. Return precautions explained. He confirmed understanding of the plan. Impression: 1. Right lower extremity DVT Discharge Plan Triage Chief Complaint: Lower Extremity Injury ED Provider: Karri Escobedo Dx/Rx/DC Orders Clinical Impression: DVT (deep venous thrombosis) Instructions: DVT Complications, Anticoagulants, DVT Tx, ED Deep Vein Thrombosis (DVT) Prescriptions: New Eliquis DVT-PE Treat 30D Start 5 mg (74 tabs) tablets,dose pack See Rx Instructions .ROUTE .COMPLEX Qty: 74 0RF Rx Instructions: orally per package directions No Action Boostrix Tdap 2.5-8-5 Lf-mcg-Lf/0.5mL syringe 0.5 ml IM ONCE Qty: 1 0RF Flucelvax Quad [id number] (PF) 60 mcg (15 mcg x 4)/0.5 mL syringe 0.5 ml IM ONCE Qty: 0.5 0RF Primary Care Provider: Samuel Howard Referrals: Samuel Howard, SHIPWRIGHT APPRENTICE-C [Primary Care Provider] - 3-5 Days Activity Restrictions/Additional Instructions: Follow-up with your primary care physician. You need to be careful while being on blood thinners as blood thinners increase the risk of bleeding with injury aswell as spontaneous bleeding. Let your job know that you were started on blood thinners. Print Language: [place] Disposition Disposition: Home, Self Care What to do if you have Problems For any increased pain, shortness of breath, bleeding, nausea or vomiting, chestpain, or any unexpected problems, contact your Primary Care Provider. Call [facility] ([phone]) or report to the closest Emergency Room. Call 911 if necessary. 01/28/25 1254 <Electronically signed by Karri Escobedo DO> Cosigner Signature (if applicable): CC: Samuel MONK SHIPWRIGHT APPRENTICE-C Anita ~ Signed [facility] Work Phone: Discharge summary Author Tone Mata [facility] Note Date/Time April 08, 2025 8:48a m [facility] Medical Records Department [address] [place] [address] Emergency Department Summary 04/08/25 MR#: [id number] Acct: [id number] Name: SHARA DELEON Rep #:[id number] : 1970 54 From: Tone Mata MD PCP: Samuel Howard SHIPWRIGHT APPRENTICELetiC Status:REG ER Location: ED HPI History of Present Illness Chief Complaint: Shortness of Breath Narrative Narrative: 54-year-old male past medical history of DVTs, having shortness of breath for 2 months. He relates history that he was diagnosed with DVTs and started Eliquis a few months ago. He has not missed a dose. However, he is concerned that he has a pulmonary embolism because all of his brothers had to start blood thinnersand his mother also had pulmonary emboli. He denies any fevers or chills, no cough. He does not have follow-up with hematology/oncology until the next few weeks. [facility] Medical History Back pain Limb weakness Home Medications ?Medication ?Instructions ?Recorded ?Last Taken ?Type Boostrix Tdap 2.5 Lf unit-8 mcg-5 0.5 ml IM ONCE #1 mL 08/28/22 Unknown Clinic Lf/0.5 mL intramuscular syringe (diphth,pertus(acell),tetanus) Flucelvax Quad [id number] (PF) 60 0.5 ml IM ONCE #0.5 m L 08/28/22 Unknown Clinic mcg (15 mcg x 4)/0.5 mL IM syringe (flu vac qs 2021(6 ms up)CD(PF)) apixaban 5 mg (74 tabs) tablets in See Rx Instructions PO .COMPLEX 01/28/25 Unknown Rx a dose pack (Eliquis DVT-PE Treat #74 tabs 30D Start) sulfacetamide sodium 10 % topical 1 applic topical QDA Y 03/05/25 Unknown 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 No fevers or chills, no other symptoms. EXAM Physical Exam Narrative Exam Narrative: Afebrile. Vital signs noted. Nontoxic-appearing. Cardiovascular examination of is a regular rate and rhythm. Lungs are clear to auscultation bilaterally. Abdomen is soft nontender with normal active bowel sounds. Neurovasc intact bilateral lower extremities. Palpable dorsalis pedis pulses. Const Vital Signs: 04/08/25 07:05 04/08/25 07:21 Temperature 97.8 F Temperature Source Oral Pulse Rate 60 Respiratory Rate 16 Respiratory Effort Normal Respiratory Depth Normal Respiratory Pattern Normal Blood Pressure 144/90 H Blood Pressure Mean 108 Pulse Ox 100 Oxygen Delivery Method Room Air Room Air MDM MDM MDM Narrative Medical decision making narrative: Differential diagnosis includes but not limited to pulmonary emboli versus anxiety versus pneumonia versus pneumothorax. History and physical does not support pneumonia or pneumothorax. Pulse ox is 100% on room air without evidence of hypoxia. He is not tachycardic. I had a discussion with the patient that treatment for pulmonary emboli and DVT is being on Eliquis. He hasnot missed a dose. I do feel that there is a strong anxiety component regardingthis. He is mildly adamant that CTA should be performed to look for clot burden. I will look for other source of his subjective dyspnea and feeling thathe cannot take a deep breath at the lung parenchyma. I will also check a CBC and a BMP to look for other causes such as anemia but clinically I do not feel that he has a low hemoglobin. I reviewed his laboratory work and he has normal white count of 6.3 with hemoglobin normal at 15.5, no anemia. Platelet count normal at 251. Electrolyte panel grossly unremarkable. I reviewed the radiology report of the CT of the chest/CTA and there is no evidence of a pulmonary embolism, no pneumonia, no pneumothorax. At this point in time, as his pulse ox is 100% on room air and heis already on a blood thinner treating his DVTs I feel he can be discharged to follow-up with a hand worker oncologist. I do not feel he requires observationor admission. He was told to continue the use of his blood thinner/Eliquis. Disposition is discharged home in stable condition. History & Record Review Discussion w/independent historian: Patient Additional record(s) reviewed:: Prior ED visit (Had outpatient ultrasound which showed DVT of the soleus vein.) Lab Data Attestation: I reviewed the patient's lab results. Labs: Laboratory Results - last 24 hr 04/08/25 07:26 WBC 6.3 RBC 4.58 L Hgb 15.5 Hct 43.1 MCV 94.1 H MCH 33.8 H MCHC 36.0 RDW Std Deviation 44.0 H RDW Coeff of Dorie 12.7 Plt Count 251 MPV 9.1 Immature Gran % (Auto) 0.300 Neut % (Auto) 45.8 L Lymph % (Auto) 39.8 [place] % (Auto) 11.8 H Eos % (Auto) 1.8 Baso % (Auto) 0.5 Absolute Neuts (auto) 2.9 Absolute Lymphs (auto) 2.49 Nucleated RBC % 0 Sodium 138 Potassium 4.1 Chloride 106 Carbon Dioxide 21.9 Anion Gap 10 BUN 14 Creatinine 0.97 Estim Creat Clear Calc 89.89 Est GFR (MDRD) Non-Af 92 BUN/Creatinine Ratio 14.1 Glucose 91 Calcium 8.9 Radiography Diagnostic Testing: Clinical Impression(s) from Imaging Studies Chest CTA 04/08/25 07:18 IMPRESSION: No evidence of pulmonary embolism. The lungs are clear. Reading [facility] Discharge Plan Triage Chief Complaint: Shortness of Breath ED Provider: Tone Mata Dx/Rx/DC Orders Clinical Impression: Dyspnea, History of deep vein thrombosis (DVT) of lower extremity Instructions: ED Dyspnea Prescriptions: No Action Boostrix Tdap 2.5-8-5 Lf-mcg-Lf/0.5mL syringe 0.5 ml IM ONCE Qty: 1 0RF Flucelvax Quad (PF) 60 mcg (15 mcg x 4)/0.5 mL syringe 0.5 ml IM ONCE Qty: 0.5 0RF sulfacetamide sodium 10 % cleanser 1 applic topical QDAY Eliquis DVT-PE Treat 30D Start 5 mg (74 tabs) tablets,dose pack See Rx Instructions .ROUTE .COMPLEX Qty: 74 0RF Rx Instructions: orally per package directions Primary Care Provider: Samuel Howard Referrals: Samuel Howard, SHIPWRIGHT APPRENTICE-C [Primary Care Provider] - Activity Restrictions/Additional Instructions: Continue your Eliquis as previously directed. Follow-up with hematology/oncology as scheduled. Return with new or worsening symptoms. Print Language: [place] Disposition Disposition: Home, Self Care What to do if you have Problems For any increased pain, shortness of breath, bleeding, nausea or vomiting, chestpain, or any unexpected problems, contact your Primary Care Provider. Call [facility] ([phone]) or report to the closest Emergency Room. Call 911 if necessary. 04/08/25 0848 <Electronically signed by Tone Mata MD> Cosigner Signature (if applicable): CC: Samuel MONK SHIPWRIGHT APPRENTICE-Cristina Howard ~ Signed [facility] Work Phone: Hospital Discharge instructions Additional Instructions Follow-up with your primary care physician. You need to be careful while being on blood thinners as blood thinners increase the risk of bleeding with injury as well as spontaneous bleeding. Let your job know that you were started on blood thinners.[facility] Work Phone: Hospital Discharge instructions Additional Instructions Continue your Eliquis as previously directed. Follow-up with hematology/oncology as scheduled. Return with new or worsening symptoms.[facility] Work Phone: Progress note Author Anthony Medina [facility] Note Date/Time May 19, 2025 11:33 am [facility] [place] [address] OFFICE VISIT Date of Service: 05/19/25 1112 MR#: [id number] Acct: [id number] Name: SHARA DELEON Rep #: [id number] : 1970 From: Anthony Medina MD Age/Sex: 54/M Location[facility] Status: Signed HPI Subjective Date of Service 05/19/25 Chief Complaint F/u for DVT History of Present Illness 54-year-old man Presented with right leg pain in January 2025. Doppler study on 01/28/2025 showed acute DVT in right popliteal vein, right tibial peroneal trunk,right peroneal nail vein, right soleus vein. He was started on Eliquis and currently on 5 mg p.o. twice daily. He was referred because of the strong family history of clotting. Had D-dimers and comes for follow up. Feels well, gets pain in the legs when he stands for a long time. [facility] Medical History Paresthesia Cardiac arrhythmia Acute embolism and thrombosis of unspecified deep veins of right lower extremity Fatigue SOB (shortness of breath) Palpitations Back pain Surgical History Hx of prostate biopsy History of back surgery Family History Mother Colon cancer Pancreatic cancer Blood clotting disorder Sister Blood clotting disorder Brother Blood clotting disorder Social History Smoking Status: Former smoker alcohol intake: current Alcohol type: beer substance use type: does not use Intake Vital Signs 04/20/25 15:37 05/19/25 11:14 Height 5 ft 10 in 5 ft 10 in Weight: 79.605 kg BMI 25.2 BP 124/80 H Blood Pressure Location Rt brachial Position Sitting Respiration 18 Pulse 51 L Pulse Source Monitor Temp 98.2 F Temperature Source Temporal Artery Pulse Oximetry (%) 100 Oxygen Delivery Method room air Intake Accompanied by: Self Is patient in pain?: No Allergies No Known Allergies Allergy (Verified 05/19/25 11:16) Medications ?Medication ?Instructions ?Recorded ?Confirmed ?Type sulfacetamide sodium 10 % topical 1 applic topical QDA Y 03/05/25 05/19/25 Hi story cleanser apixaban 5 mg tablet (Eliquis) 5 mg PO BID #60 tabs 05/19/25 Rx Central Venous Access Central Venous Access: No Laboratory Tests 05/19/25 10:22 WBC 6.5 Hgb 15.8 Hct 44.4 Plt Count 267 D-Dimer Quant (PE/DVT) 0.50 H Exam Physical Exam Const alert, oriented x3 and no apparent distress Extremity no clubbing, cyanosis or edema Coding Level of Care Code Off vis,est,level 3 Exam Problem Focused Diagnoses Acute deep vein thrombosis (DVT) of popliteal vein of right lower extremity I82.431 DVT location: lower extremity Affected thrombotic vein of extremity: popliteal Chronicity: acute Laterality: right Assessment and Plan Assessment and Plan (1) Deep vein thrombosis (DVT): Qualifiers: DVT location: lower extremity Affected thrombotic vein of extremity: popliteal Chronicity: acute Laterality: right Qualified Code(s): I82.431 - Acute embolism and thrombosis of right popliteal vein Plan: D-dimers are slightly elevated. To continue Eliquis 5mg bid. RTC 2 month with d-dimers. Medications: New apixaban (Eliquis) 5 mg PO BID 60 tabs 3RF Plan Details Follow Up: 2 Months 05/19/25 1133 <Electronically signed by Anthony Mejia> Date _ Anthony Liangignaquiles Signature: Date (if applicable) CC: Samuel MONK SHIPWRIGHT APPRENTICE-C Beam ~ [facility] Work Phone: Reason for referral (narrative)No reason for referral information availableWLicking Memorial Hospital Work Phone: Summary Purpose Family History No Family History Records Found Relationship Condition Age at Onset Recorded Date/T harvinder mother Malignant neoplasm of colon Unknown Malignant neoplasm of pancreas Unknown Disorder of hemostasis Unknown sister Disorder of hemostasis Unknown brother Disorder of hemostasis Unknown Advance Directives No Advanced Directives Records Found Advance Directive Response Recorded Date/ Time Living Will No January 28, 2025 12:57pm Power of Toolmaker Grade Three No January 28 12:57pm Advance Directive Response Recorded Date/ Time Living Will No January 28, 2025 12:57pm Do you have a Healthcare Power of Toolmaker Grade Three? No January 28, 2025 12:57pm Advance Directive Response Recorded Date/ Time Living Will No January 28, 2025 12:57pm Do you have a Healthcare Power of Toolmaker Grade Three? No January 28, 2025 12:57pm Do you have a Healthcare Power of Toolmaker Grade Three? 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 medical examin ation January 12, 2025 8:39am Chief Complaint Admit Date FF PHYSICAL/ WFD January 12, 2025 8:39 am RIGHT LEG PAIN January 28, 2025 10: 41am PAIN IN RT LOWER LEG January 28, 2025 10 :48am LOWER EXT January 28, 2025 11: 59am Amb Documentation March 05, 2025 4:2 5pm sob April 08, 2025 7:03a m Reason for Visit Admit Date Encounter for drapery and 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 medical examin ation January 12, 2025 8:39am Chief Complaint Admit Date FF PHYSICAL/ WFD January 12, 2025 8:39 am RIGHT LEG PAIN January 28, 2025 10: 41am PAIN IN RT LOWER LEG January 28, 2025 10 :48am LOWER EXT January 28, 2025 11: 59am Amb Documentation March 05, 2025 4:2 5pm sob April 08, 2025 7:03a m Deep vein thrombosis April 20, 2025 3:22 pm MED ONC April 20, 2025 4:01p m Reason for Visit Admit Date Encounter for drapery and 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 medical examin ation January 12, 2025 8:39am Deep vein thrombosis (DVT) April 20 3:22pm Chief Complaint Admit Date RIGHT LEG PAIN January 28, 2025 10: 41am PAIN IN RT LOWER LEG January 28, 2025 10 :48am LOWER EXT January 28, 2025 11: 59am Amb Documentation March 05, 2025 4:2 5pm sob April 08, 2025 7:03a m Deep vein thrombosis April 20, 2025 3:22 pm [facility] May 19, 2025 10:14 am MED ONC May 19, 2025 10:15 am Reason for Visit Admit Date Deep vein thrombosis (DVT) April 20 3:22pm Deep vein thrombosis (DVT) May 19 10:14am Chief Complaint Admit Date RIGHT LEG PAIN January 28, 2025 10: 41am PAIN IN RT LOWER LEG January 28, 2025 10 :48am LOWER EXT January 28, 2025 11: 59am Amb Documentation March 05, 2025 4:2 5pm sob April 08, 2025 7:03a m Deep vein thrombosis April 20, 2025 3:22 pm [facility] May 19, 2025 10:14 am MED ONC May 19, 2025 10:15 am PALPS/DVT ([facility]) May 27, 2025 9:18 am Additional Source Comments (unrecognized sect ion and content) No Status Records FoundNo Status Records FoundNo Status Records Found INFORMATION SOURCE (unrecogn ized section and content) DATE CREATED AUTHOR 05/14/2018 [facility] ([place]) DATE CREATED AUTHOR 'S ORGANIZ ATION 01/01/2022 [facility] DATE CREATED AUTHOR AUTHOR'S ORGANIZ ATION 05/27/2025 [facility] Source Comments (unrecognize d section and content) In the event this informatio n is protected by the Federal Confidentiality of Alcohol and Drug Abuse Patient Records regulations: The Federal rules restrict any use of the information to criminally investigate or prosecute any alcohol or drug abuse patient.[facility] Care Teams (unrecognized sec tion and content) Screenplay Writer Relationship Specialty Start Date End Date Rigoberto Reddy MD [address] [place] [address] PCP - General Family Medicine 04/01/20 Team Status: Active Member Role Status Dates Samuel Beam VSC, SHIPWRIGHT APPRENTICE-C Primary Care Provider Active Team Status: Inactive Member Role Status Dates Dr. Rigoberto Reddy MD Primary Care Provider Active Start: December 04, 2024 End: December 04, 2024 Dr. Rigoberto Reddy MD Referring Provider Active Start: December 04, 2024 End: December 04, 2024 Abhilash ARROYO, PA Attending Provider Active Sta rt: December 04, 2024 End: December 04, 2024 Team Status: Inactive Member Role Status Dates Dr. Rigoberto Reddy MD Primary Care Provider Active Start: January 12, 2025 End: January 12, 2025 Dr. Rigoberto Reddy MD Referring Provider Active Start: January 12, 2025 End: January 12, 2025 Jamari ARROYO, [place] Attending Provider Active Start: January 12, 2025 End: January 12, 2025 Team Status: Active Member Role Status Dates Zebulun Beam VSC, [employer]WRIGHT APPRENTICE-C Primary Care Provider Active Start: January 20, 2025 Zebulun Beam VSC, SHIPWRIGHT APPRENTICE-C Attending Provider Active Start: January 20, 2025 Team Status: Active Member Role Status Dates Zebulun Beam VSC, SHIPWRIGHT APPRENTICE-C Primary Care Provider Active Start: January 28, 2025 Zebulun Beam VSC, SHIPWRIGHT APPRENTICE-C Attending Provider Active Start: January 28, 2025 Zebulun Beam VSC, SHIPWRIGHT APPRENTICE-C Referring Provider Active Start: January 28, 2025 Team Status: Inactive Member Role Status Dates Zebulun Beam VSC, SHIPWRIGHT APPRENTICE-C Primary Care Provider Active Start: January 28, 2025 End: January 28, 2025 Dr. Karri Escobedo , DO Referring Provider Activ e Start: January 28, 2025 End: January 28, 2025 Dr. Karri Escobedo , DO Emergency Provider Activ e Start: January 28, 2025 End: January 28, 2025 Team Status: Inactive Member Role Status Dates Zebulun Beam VSC, SHIPWRIGHT APPRENTICE-C Primary Care Provider Active Start: January 20, 2025 End: January 20, 2025 Zebulun Beam VSC, SHIPWRIGHT APPRENTICE-C Attending Provider Active Start: January 20, 2025 End: January 20, 2025 Team Status: Inactive Member Role Status Dates Zebulun Beam VSC, SHIPWRIGHT APPRENTICE-C Primary Care Provider Active Start: January 28, 2025 End: January 28, 2025 Zebulun Beam VSC, SHIPWRIGHT APPRENTICE-C Attending Provider Active Start: January 28, 2025 End: January 28, 2025 Zebulun Beam VSC, SHIPWRIGHT APPRENTICE-C Referring Provider Active Start: January 28, 2025 End: January 28, 2025 Team Status: Active Member Role Status Dates Dr. Lincoln Quigley MD Attending Provider Active Start: January 28, 2025 Zebulun Beam VSC, SHIPWRIGHT APPRENTICE-C Referring Provider Active Start: January 28, 2025 Team Status: Inactive Member Role Status Dates Zebulun Beam VSC, SHIPWRIGHT APPRENTICE-C Primary Care Provider Active Start: January 28, 2025 End: January 28, 2025 Dr. Karri Escobedo , DO Attending Provider Activ e Start: January 28, 2025 End: January 28, 2025 Dr. Karri Escobedo , DO Referring Provider Activ e Start: January 28, 2025 End: January 28, 2025 Dr. Karri Escobedo , DO Emergency Provider Activ e Start: January 28, 2025 End: January 28, 2025 Team Status: Active Member Role Status Dates Zebulun Beam VSC, SHIPWRIGHT APPRENTICE-C Primary Care Provider Active Start: March 05, 2025 Ирина Stewart Attending Provider Active Start: March 05, 2025 Team Status: Inactive Member Role Status Dates Zebulun Beam VSC, SHIPWRIGHT APPRENTICE-C Primary Care Provider Active Start: April 08, 2025 End: April 08, 2025 Tone Mata MD Emergency Provider Active Star t: April 08, 2025 End: April 08, 2025 Team Status: Inactive Member Role Status Dates Zebulun Beam VSC, SHIPWRIGHT APPRENTICE-C Primary Care Provider Active Start: April 08, 2025 End: April 08, 2025 Tone Mata MD Attending Provider Active Star t: April 08, 2025 End: April 08, 2025 Tone Mata MD Emergency Provider Active Star t: April 08, 2025 End: April 08, 2025 Team Status: Inactive Member Role Status Dates Zebulun Beam VSC, SHIPWRIGHT APPRENTICE-C Primary Care Provider Active Start: April 20, 2025 End: April 20, 2025 Zebulun Beam VSC, SHIPWRIGHT APPRENTICE-C Referring Provider Active Start: April 20, 2025 End: April 20, 2025 Dr. Anthony Medina MD Attending Provider Active S tart: April 20, 2025 End: April 20, 2025 Team Status: Active Member Role Status Dates Zebulun Beam VSC, SHIPWRIGHT APPRENTICE-C Primary Care Provider Active Start: April 20, 2025 Dr. Anthony Medina MD Attending Provider Active S tart: April 20, 2025 Dr. Anthony Medina MD Referring Provider Active S tart: April 20, 2025 Team Status: Active Member Role/Relationship Status Dates Zebulun Beam VSC, SHIPWRIGHT APPRENTICE-C Primary Care Provider Active Team Status: Inactive Member Role/Relationship Status Dates Zebulun Beam VSC, SHIPWRIGHT APPRENTICE-C Primary Care Provider Active Start: January 20, 2025 End: January 20, 2025 Zebulun Beam VSC, SHIPWRIGHT APPRENTICE-C Attending Provider Active Start: January 20, 2025 End: January 20, 2025 Team Status: Inactive Member Role/Relationship Status Dates Zebulun Beam VSC, SHIPWRIGHT APPRENTICE-C Primary Care Provider Active Start: January 28, 2025 End: January 28, 2025 Zebulun Beam VSC, SHIPWRIGHT APPRENTICE-C Attending Provider Active Start: January 28, 2025 End: January 28, 2025 Zebulun Beam VSC, SHIPWRIGHT APPRENTICE-C Referring Provider Active Start: January 28, 2025 End: January 28, 2025 Team Status: Active Member Role/Relationship Status Dates Dr. Lincoln Quigley MD Attending Provider Active Start: January 28, 2025 Zebulun Beam VSC, SHIPWRIGHT APPRENTICE-C Referring Provider Active Start: January 28, 2025 Team Status: Inactive Member Role/Relationship Status Dates Zebulun Beam VSC, SHIPWRIGHT APPRENTICE-C Primary Care Provider Active Start: January 28, 2025 End: January 28, 2025 Dr. Karri Escobedo , DO Attending Provider Activ e Start: January 28, 2025 End: January 28, 2025 Dr. Karri Escobedo , DO Referring Provider Activ e Start: January 28, 2025 End: January 28, 2025 Dr. Karri Escobedo , DO Emergency Provider Activ e Start: January 28, 2025 End: January 28, 2025 Team Status: Active Member Role/Relationship Status Dates Zebulun Beam VSC, SHIPWRIGHT APPRENTICE-C Primary Care Provider Active Start: March 05, 2025 Ирина Stewart Attending Provider Active Start: March 05, 2025 Team Status: Inactive Member Role/Relationship Status Dates Zebulun Beam VSC, SHIPWRIGHT APPRENTICE-C Primary Care Provider Active Start: April 08, 2025 End: April 08, 2025 Tone Mata MD Attending Provider Active Star t: April 08, 2025 End: April 08, 2025 Tone Mata MD Emergency Provider Active Star t: April 08, 2025 End: April 08, 2025 Team Status: Inactive Member Role/Relationship Status Dates Zebulun Beam VSC, SHIPWRIGHT APPRENTICE-C Primary Care Provider Active Start: April 20, 2025 End: April 20, 2025 Zebulun Beam VSC, SHIPWRIGHT APPRENTICE-C Referring Provider Active Start: April 20, 2025 End: April 20, 2025 Dr. Anthony Medina MD Attending Provider Active S tart: April 20, 2025 End: April 20, 2025 Team Status: Inactive Member Role/Relationship Status Dates Zebulun Beam VSC, SHIPWRIGHT APPRENTICE-C Primary Care Provider Active Start: May 19, 2025 End: May 19, 2025 Zebulun Beam VSC, SHIPWRIGHT APPRENTICE-C Referring Provider Active Start: May 19, 2025 End: May 19, 2025 Dr. Anthony Medina MD Attending Provider Active S tart: May 19, 2025 End: May 19, 2025 Team Status: Active Member Role/Relationship Status Dates Zebulun Beam VSC, SHIPWRIGHT APPRENTICE-C Primary Care Provider Active Start: May 19, 2025 Dr. Anthony Medina MD Attending Provider Active S tart: May 19, 2025 Dr. Anthony Medina MD Referring Provider Active S tart: May 19, 2025 Team Status: Inactive Member Role/Relationship Status Dates Zebulun Beam VSC, SHIPWRIGHT APPRENTICE-C Primary Care Provider Active Start: January 28, 2025 End: January 28, 2025 Zebulun Beam VSC, SHIPWRIGHT APPRENTICE-C Attending Provider Active Start: January 28, 2025 End: January 28, 2025 Zebulun Beam VSC, SHIPWRIGHT APPRENTICE-C Referring Provider Active Start: January 28, 2025 End: January 28, 2025 Team Status: Active Member Role/Relationship Status Dates Dr. Lincoln Quigley MD Attending Provider Active Start: January 28, 2025 Zebulun Beam VSC, SHIPWRIGHT APPRENTICE-C Referring Provider Active Start: January 28, 2025 Team Status: Inactive Member Role/Relationship Status Dates Zebulun Beam VSC, SHIPWRIGHT APPRENTICE-C Primary Care Provider Active Start: January 28, 2025 End: January 28, 2025 Dr. Karri Escobedo , DO Attending Provider Activ e Start: January 28, 2025 End: January 28, 2025 Dr. Karri Escobedo , Referring Provider Activ e Start: January 28, 2025 End: January 28, 2025 Dr. Karri Escobedo , Emergency Provider Activ e Start: January 28, 2025 End: January 28, 2025 Team Status: Active Member Role/Relationship Status Dates Zebulun Beam VSC, SHIPWRIGHT APPRENTICE-C Primary Care Provider Active Start: March 05, 2025 Ирина Stewart Attending Provider Active Start: March 05, 2025 Team Status: Inactive Member Role/Relationship Status Dates Zebulun Beam VSC, SHIPWRIGHT APPRENTICE-C Primary Care Provider Active Start: April 08, 2025 End: April 08, 2025 Tone Mata MD Attending Provider Active Star t: April 08, 2025 End: April 08, 2025 Tone aMta MD Emergency Provider Active Star t: April 08, 2025 End: April 08, 2025 Team Status: Inactive Member Role/Relationship Status Dates Zebulun Beam VSC, SHIPWRIGHT APPRENTICE-C Primary Care Provider Active Start: April 20, 2025 End: April 20, 2025 Zebulun Beam VSC, SHIPWRIGHT APPRENTICE-C Referring Provider Active Start: April 20, 2025 End: April 20, 2025 Dr. Anthony Medina MD Attending Provider Active S tart: April 20, 2025 End: April 20, 2025 Team Status: Inactive Member Role/Relationship Status Dates Zebulun Beam VSC, SHIPWRIGHT APPRENTICE-C Primary Care Provider Active Start: May 19, 2025 End: May 19, 2025 Zebulun Beam VSC, SHIPWRIGHT APPRENTICE-C Referring Provider Active Start: May 19, 2025 End: May 19, 2025 Dr. Anthony Medina MD Attending Provider Active S tart: May 19, 2025 End: May 19, 2025 Team Status: Active Member Role/Relationship Status Dates Zebulun Beam VSC, SHIPWRIGHT APPRENTICE-C Primary Care Provider Active Start: May 19, 2025 Dr. Anthony Medina MD Attending Provider Active S tart: May 19, 2025 Dr. Anthony Medina MD Referring Provider Active S tart: May 19, 2025 Team Status: Inactive Member Role/Relationship Status Dates Zebulun Beam VSC, SHIPWRIGHT APPRENTICE-C Primary Care Provider Active Start: May 27, 2025 End: May 27, 2025 Zebulun Beam VSC, SHIPWRIGHT APPRENTICE-C Referring Provider Active Start: May 27, 2025 End: May 27, 2025 Dr. Uzair Gaffney MD Attending Provider Active S tart: May 27, 2025 End: May 27, 2025 Goals (unrecognized section and content) Goals may be documented in a n alternate sectionGoals may be documented in an alternate sectionGoals may be documented in an alternate sectionGoals may be documented in an alternate sectionGoals may be documented in an alternate sectionGoals may be documented in an alternate sectionGoals may be documented in an alternate section FOR RECORDS PERTAINING TO PATIENTS WHO ARE OR HAVE BEEN ENROLLED IN A CHEMICAL DEPENDENCY/SUBSTANCEABUSE PROGRAM, SOME INFORMATION MAY BE OMITTED. This clinical summary was aggregated from multiple sources. Caution should be exercised in using it in the provision of clinical care. This summary normalizes information from multiple sources, and as a consequence, information in this document may materially change the coding, format and clinical context of patient data. In addition, data may be omitted in some cases. CLINICAL DECISIONS SHOULD BE BASED ON THE PRIMARY CLINICAL RECORDS. [facility] [employer] [facility]. provides no warranty or guarantee of the accuracy or completeness of information in this document.
--- OUTSIDE RECORDS SUMMARY | 2025-05-27 21:18 | XMS RPT_ITS | CCD ---
Author Organization [facility] Care Team Providers Care Marketing Education Teacher Name Role Phone IRVING SALTER Unavailable Unavailable IRVING SALTER Unavailable Unavailable ANTONIO NERI Unavailable UnavailIRVING Frazier Unavailable Unavailable Rigoberto Reddy MD Primary Care Provider Dr. Rigoberto Reddy MD Primary Care Provider Dr. Rigoberto Reddy MD Referring Provider Abhilash Ambrose Attending Provider [phone] Jamari Noble Attending Provider Beam SUCTION DREDGE DUMPING SUPERVISOR-C, Zebulun Primary Care Provider Beam SUCTION DREDGE DUMPING SUPERVISOR-C, Zebulun Attending Provider Beam SUCTION DREDGE DUMPING SUPERVISOR-C, Zebulun Referring Provider Dr. Karri Escobedo DO [...] Dr. Anthony Medina MD Referring Provider Beam SUCTION DREDGE DUMPING SUPERVISOR-C, Zebulun Primary Care Provider Beam SUCTION DREDGE DUMPING SUPERVISOR-C, Zebulun Attending Provider Yeimy LOCKE, Dr. Dunne [...] Attending Unavailable Maureen, Rigoberto Primary Care Unavailable [place], Rigoberto Referring Unavailable Jamari Noble Attending Unavailable [place], Rigoberto Referring Unavailable [place], Rigoberto Primary Care Unavailable Jamari Noble Attending [...] Facility Cardiology Visit Reporton Cardiology Visit Report [facility] [address] [place] [address] OFFICE VISIT Date of Service: 05/27/25 MR#: [id number] Acct: [id number] Name: SHARA DELEON Rep #: [id number] : 1970 Provider: Dr. Uzair Gaffney MD Age/Sex: 54/M Location[place] [facility] [place] Status: Signed HPI HPI History of Present [...] pulmonary embolism. He has also seen the windscreen fitter who is working up this DVT. He [...] room air Intake Visit Reasons: PALPS/DVT (PRAH) Steamfitter Apprentice Required: No Accompanied by: Self Is patient [...] inspection, trachea (more content not included)... Normal [facility] Thyroid Stim Hormone (TSH)on 05-27-2025 TSH 1.380 uIU/mL Normal 0.300-4.200 [facility] Comment on above: Performed By: #### L 501.9520 #### [facility] [address] [place] [address]. [place], [address] Absolute lymphocyte countOrd ered By: Anthony Medina on 05-19-2025 Lymphocytes Auto (Unsp spec) [#/Vol] 2.37 10*3/uL 0.83-4.51 [facility] Absolute neutrophil countOrd ered By: Anthony Medina on 05-19-2025 Neutrophils (Bld) [#/Vol] 3.4 10*3/uL 2.0-7.7 [facility] Activated partial thrombopla stin time (aPTT) in platelet poor plasma by coagulation aOrdered By: Anthony Medina on 05-19-2025 aPTT Coag (PPP) [Time] 28.5 s 24.1-36.2 [facility] Anion gap in Serum or Plasma Ordered By: Anthony Medina on 05-19-2025 Anion gap [Moles/Vol] 9 mmol/L 5-15 [facility] Automated lymphocyte count a s percentage of total leukocytesOrdered By: Anthony Medina on 05-19-2025 Lymphocytes/100 WBC Auto (Unsp spec) 36.7 % 19-41 [facility] BUN/creatinine ratioOrdered By: Anthony Medina on 05-19-2025 Urea nitrogen/Creatinine [Mass ratio] 16.3 mg/mg 10-20 [facility] Basophil percentageOrdered B y: Anthony Medina on 05-19-2025 Basophils/100 WBC (Bld) 0.5 % 0-1 [facility] Bilirubin, totalOrdered By: Anthony Medina on 05-19-2025 Bilirubin [Mass/Vol] 0.66 mg/dL 0.00-1.30 [facility] CBC W/Diff, Automatedon 07 Absolute Lymph 2.37 X10 3/uL Normal 0.83-4.51 [facility] Comment on above: Performed By: #### L 500.4050, M100.7900, L500.4100, L100.0100, L501.9910, L400.2010 #### [facility] [address] [place], [address] Absolute Neut 3.4 X10 3/uL Normal 2.0-7.7 [facility] Comment on above: Performed By: #### L 500.4050, M100.7900, L500.4100, L100.0100, L501.9910, L400.2010 #### [facility] [address] [place], [address] Basophils/100 WBC (Bld) 0.5 % Normal 0-1 [facility] Comment on above: Performed By: #### L 500.4050, M100.7900, L500.4100, L100.0100, L501.9910, L400.2010 #### [facility] [address] [place], [address] Eosinophils/100 WBC (Bld) 1.5 % Normal 0-5 [facility] Comment on above: Performed By: #### L 500.4050, M100.7900, L500.4100, L100.0100, L501.9910, L400.2010 #### [facility] [address] [place], [address] Erythrocyte distribution width (RBC) [Ratio] 12.8 % Normal 11.6-14.6 [facility] Comment on above: Performed By: #### L 500.4050, M100.7900, L500.4100, L100.0100, L501.9910, L400.2010 #### [facility] [address] [place], [address] Hematocrit (Bld) [Volume fraction] 44.4 % Normal 40-54 [facility] Comment on above: Performed By: #### L 500.4050, M100.7900, L500.4100, L100.0100, L501.9910, L400.2010 #### [facility] [address] [facility] [place], [address] Hemoglobin (Bld) [Mass/Vol] 15.8 g/dL Normal 13.0-16.5 [facility] Comment on above: Performed By: #### L 500.4050, M100.7900, L500.4100, L100.0100, L501.9910, L400.2010 #### [facility] [address] [place], [address] IG% 0.300 Normal 0.0-0.9 [facility] Comment on above: Result Comment: IG% - Immature Granulocytes (promyelocytes, myelocytes and metamyelocytes) > 1% indicates that a LEFT SHIFT is Present. Performed By: #### L 500.4050, M100.7900, L500.4100, L100.0100, L501.9910, L400.2010 #### [facility] [address] [place], [address] Lymphocytes/100 WBC (Bld) 36.7 % Normal 19-41 [facility] Comment on above: Performed By: #### L 500.4050, M100.7900, L500.4100, L100.0100, L501.9910, L400.2010 #### [facility] [address] [place], [address] MCH (RBC) [Entitic mass] 33.8 pg High 27.0-32.0 [facility] Comment on above: Performed By: #### L 500.4050, M100.7900, L500.4100, L100.0100, L501.9910, L400.2010 #### [facility] [address] [place], [address] MCHC (RBC) [Mass/Vol] 35.6 g/dL Normal 32-36 [facility] Comment on above: Performed By: #### L 500.4050, M100.7900, L500.4100, L100.0100, L501.9910, L400.2010 #### [facility] [address] [place], [address] MCV (RBC) [Entitic vol] 94.9 fL High 80-94 [facility] Comment on above: Performed By: #### L 500.4050, M100.7900, L500.4100, L100.0100, L501.9910, L400.2010 #### [facility] [address] [place], [address] Monocytes/100 WBC (Bld) 8.2 % Normal 0-10 [facility] Comment on above: Performed By: #### L 500.4050, M100.7900, L500.4100, L100.0100, L501.9910, L400.2010 #### [facility] [address] [place], [address] Neutrophils/100 WBC (Bld) 52.8 % Normal 47-70 [facility] Comment on above: Performed By: #### L 500.4050, M100.7900, L500.4100, L100.0100, L501.9910, L400.2010 #### [facility] [address] [place], [address] Nucleated RBC (Bld) [#/Vol] 0 10*3/uL Normal 0-5 [facility] Comment on above: Performed By: #### L 500.4050, M100.7900, L500.4100, L100.0100, L501.9910, L400.2010 #### [facility] [address] [place], [address] Platelet mean volume (Bld) [Entitic vol] 9.2 fL Normal 6.2-12.0 [facility] Comment on above: Performed By: #### L 500.4050, M100.7900, L500.4100, L100.0100, L501.9910, L400.2010 #### [facility] [address] [place], [address] Platelets (Bld) [#/Vol] 267 10*3/uL Normal 150-450 [facility] Comment on above: Performed By: #### L 500.4050, M100.7900, L500.4100, L100.0100, L501.9910, L400.2010 #### [facility] [address] [place], [address] RBC (Bld) [#/Vol] 4.68 10*6/uL Normal 4.6-6.2 [facility] Comment on above: Performed By: #### L 500.4050, M100.7900, L500.4100, L100.0100, L501.9910, L400.2010 #### [facility] [address] [place], [address] RDW SD 44.3 fl High 35.1-43.9 [facility] Comment on above: Performed By: #### L 500.4050, M100.7900, L500.4100, L100.0100, L501.9910, L400.2010 #### [facility] [address] [place], [address] WBC (Bld) [#/Vol] 6.5 10*3/uL Normal 4.4-11.0 [facility] Comment on above: Performed By: #### L 500.4050, M100.7900, L500.4100, L100.0100, L501.9910, L400.2010 #### [facility] [address] [place], [address] Carbon dioxide, total [Moles /volume] in Central venous bloodOrdered By: Anthony Medina on 05-19-2025 CO2 [Moles/Vol] 24.1 mmol/L 21.0-32.0 [facility] Chloride assayOrdered By: Gila Medina on 05-19-2025 Chloride [Moles/Vol] 104 mmol/L 98-108 [facility] Comprehensive Metabolic Prof ilon 05-19-2025 Albumin [Mass/Vol] 4.4 g/dL Normal 3.5-5.0 [facility] Comment on above: Performed By: #### L 500.4050, M100.7900, L500.4100, L100.0100, L501.9910, L400.2010 #### [facility] [address] [place], [address] Albumin/Globulin [Mass ratio] 1.7 {ratio} Normal 0.9-2.4 [facility] Comment on above: Performed By: #### L 500.4050, M100.7900, L500.4100, L100.0100, L501.9910, L400.2010 #### [facility] [address] [place], [address] ALK PHOS 53 U/L Normal 40-129 [facility] Comment on above: Performed By: #### L 500.4050, M100.7900, L500.4100, L100.0100, L501.9910, L400.2010 #### [facility] [address] [place], [address] ALT [Catalytic activity/Vol] 18 U/L Normal <=46 [facility] Comment on above: Performed By: #### L 500.4050, M100.7900, L500.4100, L100.0100, L501.9910, L400.2010 #### [facility] [address] [place], [address] AST [Catalytic activity/Vol] 26 U/L Normal <=37 [facility] Comment on above: Performed By: #### L 500.4050, M100.7900, L500.4100, L100.0100, L501.9910, L400.2010 #### [facility] [address] [place], [address] Bilirubin [Mass/Vol] 0.66 mg/dL Normal 0.00-1.30 [facility] Comment on above: Performed By: #### L 500.4050, M100.7900, L500.4100, L100.0100, L501.9910, L400.2010 #### [facility] [address] [place], [address] BUN/CRE 16.3 RATIO Normal 10-20 [facility] Comment on above: Performed By: #### L 500.4050, M100.7900, L500.4100, L100.0100, L501.9910, L400.2010 #### [facility] [address] [place], [address] Calcium [Mass/Vol] 9.0 mg/dL Normal 7.6-11.0 [facility] Comment on above: Performed By: #### L 500.4050, M100.7900, L500.4100, L100.0100, L501.9910, L400.2010 #### [facility] [address] [place], [address] Chloride [Moles/Vol] 104 mmol/L Normal 98-108 [facility] Comment on above: Performed By: #### L 500.4050, M100.7900, L500.4100, L100.0100, L501.9910, L400.2010 #### [facility] [address] [place], [address] CO2 [Moles/Vol] 24.1 mmol/L Normal 21.0-32.0 [facility] Comment on above: Performed By: #### L 500.4050, M100.7900, L500.4100, L100.0100, L501.9910, L400.2010 #### [facility] [address] [place], [address] Creatinine [Mass/Vol] 0.94 mg/dL Normal 0.70-1.20 [facility] Comment on above: Performed By: #### L 500.4050, M100.7900, L500.4100, L100.0100, L501.9910, L400.2010 #### [facility] [address] [place], [address] GAP 9 Normal 5-15 [facility] Comment on above: Performed By: #### L 500.4050, M100.7900, L500.4100, L100.0100, L501.9910, L400.2010 #### [facility] [address] [place], [address] GFR/1.73 sq M.predicted among non-blacks MDRD (S/P/Bld) [Vol rate/Area] 96 mL/min/{1.73_m2} Normal >60 [facility] Comment on above: Result Comment: mL/m in/1.73m2 CKD-EPI Creatinine Equation (2020) Performed By: #### L 500.4050, M100.7900, L500.4100, L100.0100, L501.9910, L400.2010 #### [facility] [address] [place], [address] Globulin (S) [Mass/Vol] 2.6 g/dL Normal 2.2-4.2 [facility] Comment on above: Performed By: #### L 500.4050, M100.7900, L500.4100, L100.0100, L501.9910, L400.2010 #### [facility] [address] [place], [address] Glucose [Mass/Vol] 85 mg/dL Normal 70-99 [facility] Comment on above: Performed By: #### L 500.4050, M100.7900, L500.4100, L100.0100, L501.9910, L400.2010 #### [facility] [address] [place], [address] Potassium [Moles/Vol] 4.0 mmol/L Normal 3.3-5.1 [facility] Comment on above: Performed By: #### L 500.4050, M100.7900, L500.4100, L100.0100, L501.9910, L400.2010 #### [facility] [address] [place], [address] Sodium [Moles/Vol] 137 mmol/L Normal 133-145 [facility] Comment on above: Performed By: #### L 500.4050, M100.7900, L500.4100, L100.0100, L501.9910, L400.2010 #### [facility] [address] [place], [address] T PROT 6.9 g/dL Normal 5.9-8.4 [facility] Comment on above: Performed By: #### L 500.4050, M100.7900, L500.4100, L100.0100, L501.9910, L400.2010 #### [facility] [address] [place], [place], [id number] Urea nitrogen [Mass/Vol] 15 mg/dL Normal 4-19 [facility] Comment on above: Performed By: #### L 500.4050, M100.7900, L500.4100, L100.0100, L501.9910, L400.2010 #### [facility] [address] [place], [address] D-Dimer Quantitative (DVT/PE )on 05-19-2025 D-DIMER QUANT 0.50 FEU/ug/m High 0.27-0.49 [facility] Comment on above: Result Comment: D-Di abhilash ELEVATED (>0.49): Additional studies and clinical assessments are indicated to conclude diagnosis of: Deep Vein Thrombosis (DVT) or Pulmonary Embolism (PE) Performed By: #### L 500.4050, M100.7900, L500.4100, L100.0100, L501.9910, L400.2010 #### [facility] [address] [place], [address] Eosinophil percentageOrdered By: Anthony Medina on 05-19-2025 Eosinophils/100 WBC (Bld) 1.5 % 0-5 [facility] Erythrocyte distribution wid th ratioOrdered By: Anthony Medina on 05-19-2025 Erythrocyte distribution width (RBC) [Ratio] 12.8 % 11.6-14.6 [facility] Erythrocyte distribution wid th standard deviationOrdered By: Anthony Medina on 05-19-2025 Erythrocyte distribution width (RBC) [Ratio] 44.3 fl High 35.1-43.9 [facility] Glomerular filtration rate ( GFR) estimation/1.73 sq m using serum, plasma, or whole bOrdered By: Anthony Medina on 05-19-2025 GFR/1.73 sq M.predicted among non-blacks MDRD (S/P/Bld) [Vol rate/Area] 96 mL/min/{1.73_m2} >60 [facility] Comment on above: mL/min/1.73m2 CKD-EP I Creatinine Equation (2020) Hematocrit Auto (Bld) [Volum e fraction]Ordered By: Anthony Medina on 05-19-2025 Hematocrit (Bld) [Volume fraction] 44.4 % 40-54 [facility] Hemoglobin measurementOrdere d By: Anthony Medina on 05-19-2025 Hemoglobin (Bld) [Mass/Vol] 15.8 g/dL 13.0-16.5 [facility] Immature granulocytes/100 WB C Auto (Bld)Ordered By: Anthony Medina on 05-19-2025 Immature granulocytes/100 WBC (Bld) 0.300 % 0.0-0.9 [facility] Comment on above: IG% - Immature Granu locytes (promyelocytes, myelocytes and metamyelocytes) > 1% indicates that a LEFT SHIFT is Present. International normalized rat io (INR) calculationOrdered By: Anthony Medina on 05-19-2025 INR Coag (Bld) [Relative time] 1.2 {INR} [facility] LDHon 05-19-2025 LDH 201 U/L Normal 87-241 [facility] Comment on above: Order Comment: 1 Performed By: #### L 500.4050, M100.7900, L500.4100, L100.0100, L501.9910, L400.2010 #### [facility] [place], [address] Laboratory - Chemistry and C hemistry - challengeOrdered By: Anthony Medina on 05-19-2025 AST [Catalytic activity/Vol] 26 U/L <38 [facility] Lactate dehydrogenase (LDH) measurementOrdered By: Anthony Medina on 05-19-2025 LDH [Catalytic activity/Vol] 201 U/L 87-241 [facility] MCV (mean corpuscular volume ) determinationOrdered By: Anthony Medina on 05-19-2025 MCV (RBC) [Entitic vol] 94.9 fL High 80-94 [facility] Mean corpuscular hemoglobin (MCH) determinationOrdered By: Anthony Medina on 05-19-2025 MCH (RBC) [Entitic mass] 33.8 pg High 27.0-32.0 [facility] Mean corpuscular hemoglobin concentration (MCHC) determinationOrdered By: Anthony Medina on 05-19-2025 MCHC (RBC) [Mass/Vol] 35.6 g/dL 32-36 [facility] Mean platelet volume determi nationOrdered By: Anthony Medina on 05-19-2025 Platelet mean volume (Bld) [Entitic vol] 9.2 fL 6.2-12.0 [facility] Monocyte percentageOrdered B y: Anthony Medina on 05-19-2025 Monocytes/100 WBC (Bld) 8.2 % 0-10 [facility] Neutrophil percentageOrdered By: Anthony Medina on 05-19-2025 Neutrophils/100 WBC (Bld) 52.8 % 47-70 [facility] Nucleated red blood cell per centageOrdered By: Anthony Medina on 05-19-2025 Nucleated RBC/100 WBC (Bld) [Ratio] 0 % 0-5 [facility] Oncology Visit Reporton Oncology Visit Report [facility] [address] [place] [address] OFFICE VISIT Date of Service: 05/19/25 1112 MR#: [id number] Acct: [id number] Name: SHARA DELEON Rep #: [id number] : 1970 From: Anthony Medina MD Age/Sex: 54/M Location: [facility] [place] Status: Signed HPI Subjective Date of Service [...] when he stands for a long time. [facility] Medical History Paresthesia Cardiac arrhythmia Acute embolism [...] Signature: Date (if applicable) CC: Samuel RICE SUCTION DREDGE DUMPING SUPERVISOR-C Beam Normal [facility] Partial Thromboplast Timeon 05-19-2025 aPTT Coag (Bld) [Time] 28.5 s Normal 24.1-36.2 [facility] Comment on above: Performed By: #### L 500.4050, M100.7900, L500.4100, L100.0100, L501.9910, L400.2010 #### [facility] [address] [place], [place], [id number] Platelet countOrdered By: Gila Medina on 05-19-2025 Platelets (Bld) [#/Vol] 267 10*3/uL 150-450 [facility] Potassium measurement (mass/ volume)Ordered By: Anthony Medina on 05-19-2025 Potassium (Unsp spec) [Mass/Vol] 4.0 mmol/L 3.3-5.1 [facility] Prothrombin Time w/INRon INR Coag (PPP) [Relative time] 1.2 {INR} Normal [facility] Comment on above: Performed By: #### L 500.4050, M100.7900, L500.4100, L100.0100, L501.9910, L400.2010 #### [facility] [address] [place], [place], [id number] PT Coag (PPP) [Time] 15.5 s High 11.7-14.9 [facility] Comment on above: Performed By: #### L 500.4050, M100.7900, L500.4100, L100.0100, L501.9910, L400.2010 #### [facility] [address] [place], [place], [id number] Prothrombin timeOrdered By: Anthony Medina on 05-19-2025 PT Coag (PPP) [Time] 15.5 s High 11.7-14.9 [facility] RBC Auto (Bld) [#/Vol]Ordere d By: Anthony Medina on 05-19-2025 RBC (Bld) [#/Vol] 4.68 10*6/uL 4.6-6.2 [facility] Serum creatinine measurement (mass/volume)Ordered By: Anthony Medina on 05-19-2025 Creatinine [Mass/Vol] 0.94 mg/dL 0.70-1.20 [facility] Serum globulin measurementOr dered By: Anthony Medina on 05-19-2025 Globulin (S) [Mass/Vol] 2.6 g/dL 2.2-4.2 [facility] Serum glucose measurement (m ass/volume)Ordered By: Anthony Medina on 05-19-2025 Glucose [Mass/Vol] 85 mg/dL 70-99 [facility] Serum or plasma alanine rivas otransferase (ALT) measurementOrdered By: Anthony Medina on 05-19-2025 ALT [Catalytic activity/Vol] 18 U/L <47 [facility] Serum or plasma albumin amrit urement (mass/volume)Ordered By: Anthony Medina on 05-19-2025 Albumin [Mass/Vol] 4.4 g/dL 3.5-5.0 [facility] Serum or plasma albumin/glob ulin mass ratioOrdered By: Anthony Medina on 05-19-2025 Albumin/Globulin [Mass ratio] 1.7 {ratio} 0.9-2.4 [facility] Serum or plasma alkaline monet sphatase measurementOrdered By: Anthony Medina on 05-19-2025 ALP [Catalytic activity/Vol] 53 U/L 40-129 [facility] Serum or plasma calcium amrit urement (mass/volume)Ordered By: Anthony Medina on 05-19-2025 Calcium [Mass/Vol] 9.0 mg/dL 7.6-11.0 [facility] Serum or plasma urea nitroge n measurement (mass/volume)Ordered By: Anthony Medina on 05-19-2025 Urea nitrogen [Mass/Vol] 15 mg/dL 4-19 [facility] Sodium levelOrdered By: Jair Medina on 05-19-2025 Sodium [Moles/Vol] 137 mmol/L 133-145 [facility] Total proteinOrdered By: Donovan Medina on 05-19-2025 Protein [Mass/Vol] 6.9 g/dL 5.9-8.4 [facility] White blood cell (WBC) count Ordered By: Anthony Medina on 05-19-2025 WBC (Bld) [#/Vol] 6.5 10*3/uL 4.4-11.0 [facility] CBC W/Diff, Automatedon 06-0 Absolute Lymph 2.52 X10 3/uL Normal 0.83-4.51 [facility] Comment on above: Performed By: #### L 500.4050, L504.2610, L300.4310, L100.0100, L300.8000, L300.3900 #### [facility] [address] [facility] [place], [place], [id number] ([address] Absolute Neut 5.1 X10 3/uL Normal 2.0-7.7 [facility] Comment on above: Performed By: #### L 500.4050, L504.2610, L300.4310, L100.0100, L300.8000, L300.3900 #### [facility] [address] [place], [address] Basophils/100 WBC (Bld) 0.5 % Normal 0-1 [facility] Comment on above: Performed By: #### L 500.4050, L504.2610, L300.4310, L100.0100, L300.8000, L300.3900 #### [facility] [address] [place], [address] Eosinophils/100 WBC (Bld) 0.9 % Normal 0-5 [facility] Comment on above: Performed By: #### L 500.4050, L504.2610, L300.4310, L100.0100, L300.8000, L300.3900 #### [facility] [address] [place], [address] Erythrocyte distribution width (RBC) [Ratio] 13.0 % Normal 11.6-14.6 [facility] Comment on above: Performed By: #### L 500.4050, L504.2610, L300.4310, L100.0100, L300.8000, L300.3900 #### [facility] [address] [place], [address] Hematocrit (Bld) [Volume fraction] 43.7 % Normal 40-54 [facility] Comment on above: Performed By: #### L 500.4050, L504.2610, L300.4310, L100.0100, L300.8000, L300.3900 #### [facility] [address] [place], [address] Hemoglobin (Bld) [Mass/Vol] 15.5 g/dL Normal 13.0-16.5 [facility] Comment on above: Performed By: #### L 500.4050, L504.2610, L300.4310, L100.0100, L300.8000, L300.3900 #### [facility] [address] [place], [address] IG% 0.200 Normal 0.0-0.9 [facility] Comment on above: Result Comment: IG% - Immature Granulocytes (promyelocytes, myelocytes and metamyelocytes) > 1% indicates that a LEFT SHIFT is Present. Performed By: #### L 500.4050, L504.2610, L300.4310, L100.0100, L300.8000, L300.3900 #### [facility] [address] [place], [address] Lymphocytes/100 WBC (Bld) 29.5 % Normal 19-41 [facility] Comment on above: Performed By: #### L 500.4050, L504.2610, L300.4310, L100.0100, L300.8000, L300.3900 #### [facility] [address] [place], [address] MCH (RBC) [Entitic mass] 33.3 pg High 27.0-32.0 [facility] Comment on above: Performed By: #### L 500.4050, L504.2610, L300.4310, L100.0100, L300.8000, L300.3900 #### [facility] [address] [place], [address] MCHC (RBC) [Mass/Vol] 35.5 g/dL Normal 32-36 [facility] Comment on above: Performed By: #### L 500.4050, L504.2610, L300.4310, L100.0100, L300.8000, L300.3900 #### [facility] [address] [place], [address] MCV (RBC) [Entitic vol] 94.0 fL Normal 80-94 [facility] Comment on above: Performed By: #### L 500.4050, L504.2610, L300.4310, L100.0100, L300.8000, L300.3900 #### [facility] [address] [place], [address] Monocytes/100 WBC (Bld) 8.8 % Normal 0-10 [facility] Comment on above: Performed By: #### L 500.4050, L504.2610, L300.4310, L100.0100, L300.8000, L300.3900 #### [facility] [address] [place], [address] Neutrophils/100 WBC (Bld) 60.1 % Normal 47-70 [facility] Comment on above: Performed By: #### L 500.4050, L504.2610, L300.4310, L100.0100, L300.8000, L300.3900 #### [facility] [address] [place], [address] Nucleated RBC (Bld) [#/Vol] 0 10*3/uL Normal 0-5 [facility] Comment on above: Performed By: #### L 500.4050, L504.2610, L300.4310, L100.0100, L300.8000, L300.3900 #### [facility] [address] [place], [address] Platelet mean volume (Bld) [Entitic vol] 9.1 fL Normal 6.2-12.0 [facility] Comment on above: Performed By: #### L 500.4050, L504.2610, L300.4310, L100.0100, L300.8000, L300.3900 #### [facility] [address] [place], [address] Platelets (Bld) [#/Vol] 252 10*3/uL Normal 150-450 [facility] Comment on above: Performed By: #### L 500.4050, L504.2610, L300.4310, L100.0100, L300.8000, L300.3900 #### [facility] [address] [place], [address] RBC (Bld) [#/Vol] 4.65 10*6/uL Normal 4.6-6.2 [facility] Comment on above: Performed By: #### L 500.4050, L504.2610, L300.4310, L100.0100, L300.8000, L300.3900 #### [facility] [address] [place], [address] RDW SD 44.5 fl High 35.1-43.9 [facility] Comment on above: Performed By: #### L 500.4050, L504.2610, L300.4310, L100.0100, L300.8000, L300.3900 #### [facility] [address] [place], [address] WBC (Bld) [#/Vol] 8.5 10*3/uL Normal 4.4-11.0 [facility] Comment on above: Performed By: #### L 500.4050, L504.2610, L300.4310, L100.0100, L300.8000, L300.3900 #### [facility] [address] [place], [address] Comprehensive Metabolic Prof wvon 04-20-2025 Albumin [Mass/Vol] 4.3 g/dL Normal 3.5-5.0 [facility] Comment on above: Performed By: #### L 500.4050, L504.2610, L300.4310, L100.0100, L300.8000, L300.3900 #### [facility] [address] [place], [address] Albumin/Globulin [Mass ratio] 1.7 {ratio} Normal 0.9-2.4 [facility] Comment on above: Performed By: #### L 500.4050, L504.2610, L300.4310, L100.0100, L300.8000, L300.3900 #### [facility] [address] [place], [address] ALK PHOS 51 U/L Normal 40-129 [facility] Comment on above: Performed By: #### L 500.4050, L504.2610, L300.4310, L100.0100, L300.8000, L300.3900 #### [facility] [address] [place], [address] ALT [Catalytic activity/Vol] 19 U/L Normal <=46 [facility] Comment on above: Performed By: #### L 500.4050, L504.2610, L300.4310, L100.0100, L300.8000, L300.3900 #### [facility] [address] [place], [address] AST [Catalytic activity/Vol] 28 U/L Normal <=37 [facility] Comment on above: Performed By: #### L 500.4050, L504.2610, L300.4310, L100.0100, L300.8000, L300.3900 #### [facility] [address] [place], [address] Bilirubin [Mass/Vol] 0.35 mg/dL Normal 0.00-1.30 [facility] Comment on above: Performed By: #### L 500.4050, L504.2610, L300.4310, L100.0100, L300.8000, L300.3900 #### [facility] [address] [place], [address] BUN/CRE 15.2 RATIO Normal 10-20 [facility] Comment on above: Performed By: #### L 500.4050, L504.2610, L300.4310, L100.0100, L300.8000, L300.3900 #### [facility] [address] [place], [address] Calcium [Mass/Vol] 9.2 mg/dL Normal 7.6-11.0 [facility] Comment on above: Performed By: #### L 500.4050, L504.2610, L300.4310, L100.0100, L300.8000, L300.3900 #### [facility] [address] [place], [address] Chloride [Moles/Vol] 109 mmol/L High 98-108 [facility] Comment on above: Performed By: #### L 500.4050, L504.2610, L300.4310, L100.0100, L300.8000, L300.3900 #### [facility] [address] [place], [address] CO2 [Moles/Vol] 23.8 mmol/L Normal 21.0-32.0 [facility] Comment on above: Performed By: #### L 500.4050, L504.2610, L300.4310, L100.0100, L300.8000, L300.3900 #### [facility] [address] [place], [address] Creatinine [Mass/Vol] 1.08 mg/dL Normal 0.70-1.20 [facility] Comment on above: Performed By: #### L 500.4050, L504.2610, L300.4310, L100.0100, L300.8000, L300.3900 #### [facility] [address] [place], [address] GAP 9 Normal 5-15 [facility] Comment on above: Performed By: #### L 500.4050, L504.2610, L300.4310, L100.0100, L300.8000, L300.3900 #### [facility] [address] [place], [address] GFR/1.73 sq M.predicted among non-blacks MDRD (S/P/Bld) [Vol rate/Area] 82 mL/min/{1.73_m2} Normal >60 [facility] Comment on above: Result Comment: mL/m in/1.73m2 CKD-EPI Creatinine Equation (2020) Performed By: #### L 500.4050, L504.2610, L300.4310, L100.0100, L300.8000, L300.3900 #### [facility] [address] [place], [address] Globulin (S) [Mass/Vol] 2.5 g/dL Normal 2.2-4.2 [facility] Comment on above: Performed By: #### L 500.4050, L504.2610, L300.4310, L100.0100, L300.8000, L300.3900 #### [facility] [address] [place], [address] Glucose [Mass/Vol] 114 mg/dL High 70-99 [facility] Comment on above: Performed By: #### L 500.4050, L504.2610, L300.4310, L100.0100, L300.8000, L300.3900 #### [facility] [address] [place], [address] Potassium [Moles/Vol] 3.8 mmol/L Normal 3.3-5.1 [facility] Comment on above: Performed By: #### L 500.4050, L504.2610, L300.4310, L100.0100, L300.8000, L300.3900 #### [facility] [address] [place], [address] Sodium [Moles/Vol] 142 mmol/L Normal 133-145 [facility] Comment on above: Performed By: #### L 500.4050, L504.2610, L300.4310, L100.0100, L300.8000, L300.3900 #### [facility] [address] [place], [address] T PROT 6.9 g/dL Normal 5.9-8.4 [facility] Comment on above: Performed By: #### L 500.4050, L504.2610, L300.4310, L100.0100, L300.8000, L300.3900 #### [facility] [address] [place], [address] Urea nitrogen [Mass/Vol] 16 mg/dL Normal 4-19 [facility] Comment on above: Performed By: #### L 500.4050, L504.2610, L300.4310, L100.0100, L300.8000, L300.3900 #### [facility] [address] [place], [address] D-Dimer Quantitative (DVT/PE )on 04-20-2025 D-DIMER QUANT 0.44 FEU/ug/m Normal 0.27-0.49 [facility] Comment on above: Result Comment: NORM AL D-Dimer level (<0.50) indicates no DVT or PE. Performed By: #### L 500.4050, M100.7900, L500.4100, L100.0100, L501.9910, L400.2010 #### [facility] [address] [place], [address] LDHon 04-20-2025 LDH 192 U/L Normal 87-241 [facility] Comment on above: Order Comment: 1 Performed By: #### L 500.4050, L504.2610, L300.4310, L100.0100, L300.8000, L300.3900 #### [facility] [address] [place], [address] Oncology Visit Reporton Oncology Visit Report [facility] [address] [place] [address] OFFICE VISIT Date of Service: 04/20/25 1533 MR#: [id number] Acct: [id number] Name: SHARA DELEON Rep #: [id number] : 1970 From: Anthony Medina MD Age/Sex: 54/M Location: [facility] Status: Signed HPI Subjective Date of Service [...] of the strong family history of clotting. [facility] Medical History Back pain Limb weakness Surgical [...] of unspecifie (more content not included)... Normal [facility] Partial Thromboplast Timeon 04-20-2025 aPTT Coag (Bld) [Time] 26.2 s Normal 24.1-36.2 [facility] Comment on above: Performed By: #### L 500.4050, M100.7900, L500.4100, L100.0100, L501.9910, L400.2010 #### [facility] [address] [place], [address] Prothrombin Time w/INRon INR Coag (PPP) [Relative time] 1.1 {INR} Normal [facility] Comment on above: Performed By: #### L 500.4050, M100.7900, L500.4100, L100.0100, L501.9910, L400.2010 #### [facility] [address] [place], [address] PT Coag (PPP) [Time] 14.5 s Normal 11.7-14.9 [facility] Comment on above: Performed By: #### L 500.4050, M100.7900, L500.4100, L100.0100, L501.9910, L400.2010 #### [facility] [address] [place], [address] Absolute lymphocyte countOrd ered By: Tone Mata on 04-08-2025 Lymphocytes Auto (Unsp spec) [#/Vol] 2.49 10*3/uL 0.83-4.51 [facility] Absolute neutrophil countOrd ered By: Tone Mata on 04-08-2025 Neutrophils (Bld) [#/Vol] 2.9 10*3/uL 2.0-7.7 [facility] Anion gap in Serum or Plasma Ordered By: Tone Mata on 04-08-2025 Anion gap [Moles/Vol] 10 mmol/L - [facility] Automated lymphocyte count a s percentage of total leukocytesOrdered By: Tone Mata on 04-08-2025 Lymphocytes/100 WBC Auto (Unsp spec) 39.8 % [facility] BUN/creatinine ratioOrdered By: Tone Mata on 04-08-2025 Urea nitrogen/Creatinine [Mass ratio] 14.1 mg/mg 08-31 [facility] Basic Metabolic Profile (BMP )on 04-08-2025 BUN/CRE 14.1 RATIO Normal 08-31 [facility] Comment on above: Performed By: #### L 500.4050, M100.7900, L500.4100, L100.0100, L501.9910, L400.2010 #### [facility] [address] [place], [address] Calcium [Mass/Vol] 8.9 mg/dL Normal 7.6-11.0 [facility] Comment on above: Performed By: #### L 500.4050, M100.7900, L500.4100, L100.0100, L501.9910, L400.2010 #### [facility] [address] [place], [address] Chloride [Moles/Vol] 106 mmol/L Normal 98-108 [facility] Comment on above: Performed By: #### L 500.4050, M100.7900, L500.4100, L100.0100, L501.9910, L400.2010 #### [facility] [address] [place], [address] CO2 [Moles/Vol] 21.9 mmol/L Normal 21.0-32.0 [facility] Comment on above: Performed By: #### L 500.4050, M100.7900, L500.4100, L100.0100, L501.9910, L400.2010 #### [facility] [address] [place], [address] Creatinine [Mass/Vol] 0.97 mg/dL Normal 0.70-1.20 [facility] Comment on above: Performed By: #### L 500.4050, M100.7900, L500.4100, L100.0100, L501.9910, L400.2010 #### [facility] [address] [place], [address] ECRCL 89.89 ml/min Normal 50-250 [facility] Comment on above: Performed By: #### L 500.4050, M100.7900, L500.4100, L100.0100, L501.9910, L400.2010 #### [facility] [address] [place], [address] GAP 10 Normal 5-15 [facility] Comment on above: Performed By: #### L 500.4050, M100.7900, L500.4100, L100.0100, L501.9910, L400.2010 #### [facility] [address] [place], [address] GFR/1.73 sq M.predicted among non-blacks MDRD (S/P/Bld) [Vol rate/Area] 92 mL/min/{1.73_m2} Normal >60 [facility] Comment on above: Result Comment: mL/m in/1.73m2 CKD-EPI Creatinine Equation (2020) Performed By: #### L 500.4050, M100.7900, L500.4100, L100.0100, L501.9910, L400.2010 #### [facility] [address] [place], [address] Glucose [Mass/Vol] 91 mg/dL Normal 70-99 [facility] Comment on above: Performed By: #### L 500.4050, M100.7900, L500.4100, L100.0100, L501.9910, L400.2010 #### [facility] [address] [place], [address] Potassium [Moles/Vol] 4.1 mmol/L Normal 3.3-5.1 [facility] Comment on above: Performed By: #### L 500.4050, M100.7900, L500.4100, L100.0100, L501.9910, L400.2010 #### [facility] [address] [place], [address] Sodium [Moles/Vol] 138 mmol/L Normal 133-145 [facility] Comment on above: Performed By: #### L 500.4050, M100.7900, L500.4100, L100.0100, L501.9910, L400.2010 #### [facility] [address] [place], [address] Urea nitrogen [Mass/Vol] 14 mg/dL Normal 4-19 [facility] Comment on above: Performed By: #### L 500.4050, M100.7900, L500.4100, L100.0100, L501.9910, L400.2010 #### [facility] [address] [place], [address] Basophil percentageOrdered B y: Tone Mata on 04-08-2025 Basophils/100 WBC (Bld) 0.5 % 0-1 [facility] CBC W/Diff, Automatedon 03-13 Absolute Lymph 2.49 X10 3/uL Normal 0.83-4.51 [facility] Comment on above: Performed By: #### L 500.4050, M100.7900, L500.4100, L100.0100, L501.9910, L400.2010 #### [facility] [address] [place], [address] Absolute Neut 2.9 X10 3/uL Normal 2.0-7.7 [facility] Comment on above: Performed By: #### L 500.4050, M100.7900, L500.4100, L100.0100, L501.9910, L400.2010 #### [facility] [address] [place], [address] Basophils/100 WBC (Bld) 0.5 % Normal 0-1 [facility] Comment on above: Performed By: #### L 500.4050, M100.7900, L500.4100, L100.0100, L501.9910, L400.2010 #### [facility] [address] [place], [address] Eosinophils/100 WBC (Bld) 1.8 % Normal 0-5 [facility] Comment on above: Performed By: #### L 500.4050, M100.7900, L500.4100, L100.0100, L501.9910, L400.2010 #### [facility] [address] [place], [address] Erythrocyte distribution width (RBC) [Ratio] 12.7 % Normal 11.6-14.6 [facility] Comment on above: Performed By: #### L 500.4050, M100.7900, L500.4100, L100.0100, L501.9910, L400.2010 #### [facility] [address] [place], [address] Hematocrit (Bld) [Volume fraction] 43.1 % Normal 40-54 [facility] Comment on above: Performed By: #### L 500.4050, M100.7900, L500.4100, L100.0100, L501.9910, L400.2010 #### [facility] [address] [place], [address] Hemoglobin (Bld) [Mass/Vol] 15.5 g/dL Normal 13.0-16.5 [facility] Comment on above: Performed By: #### L 500.4050, M100.7900, L500.4100, L100.0100, L501.9910, L400.2010 #### [facility] [address] [place], [address] IG% 0.300 Normal 0.0-0.9 [facility] Comment on above: Result Comment: IG% - Immature Granulocytes (promyelocytes, myelocytes and metamyelocytes) > 1% indicates that a LEFT SHIFT is Present. Performed By: #### L 500.4050, M100.7900, L500.4100, L100.0100, L501.9910, L400.2010 #### [facility] [address] [place], [address] Lymphocytes/100 WBC (Bld) 39.8 % Normal 19-41 [facility] Comment on above: Performed By: #### L 500.4050, M100.7900, L500.4100, L100.0100, L501.9910, L400.2010 #### [facility] [address] [place], [address] MCH (RBC) [Entitic mass] 33.8 pg High 27.0-32.0 [facility] Comment on above: Performed By: #### L 500.4050, M100.7900, L500.4100, L100.0100, L501.9910, L400.2010 #### [facility] [address] [place], [address] MCHC (RBC) [Mass/Vol] 36.0 g/dL Normal 32-36 [facility] Comment on above: Performed By: #### L 500.4050, M100.7900, L500.4100, L100.0100, L501.9910, L400.2010 #### [facility] [address] [place], [address] MCV (RBC) [Entitic vol] 94.1 fL High 80-94 [facility] Comment on above: Performed By: #### L 500.4050, M100.7900, L500.4100, L100.0100, L501.9910, L400.2010 #### [facility] [address] [place], [address] Monocytes/100 WBC (Bld) 11.8 % High 0-10 [facility] Comment on above: Performed By: #### L 500.4050, M100.7900, L500.4100, L100.0100, L501.9910, L400.2010 #### [facility] [address] [place], [address] Neutrophils/100 WBC (Bld) 45.8 % Low 47-70 [facility] Comment on above: Performed By: #### L 500.4050, M100.7900, L500.4100, L100.0100, L501.9910, L400.2010 #### [facility] [address] [place], [address] Nucleated RBC (Bld) [#/Vol] 0 10*3/uL Normal 0-5 [facility] Comment on above: Performed By: #### L 500.4050, M100.7900, L500.4100, L100.0100, L501.9910, L400.2010 #### [facility] [address] [place], [address] Platelet mean volume (Bld) [Entitic vol] 9.1 fL Normal 6.2-12.0 [facility] Comment on above: Performed By: #### L 500.4050, M100.7900, L500.4100, L100.0100, L501.9910, L400.2010 #### [facility] [address] [place], [address] Platelets (Bld) [#/Vol] 251 10*3/uL Normal 150-450 [facility] Comment on above: Performed By: #### L 500.4050, M100.7900, L500.4100, L100.0100, L501.9910, L400.2010 #### [facility] [address] [place], [address] RBC (Bld) [#/Vol] 4.58 10*6/uL Low 4.6-6.2 [facility] Comment on above: Performed By: #### L 500.4050, M100.7900, L500.4100, L100.0100, L501.9910, L400.2010 #### [facility] [address] [place], [address] RDW SD 44.0 fl High 35.1-43.9 [facility] Comment on above: Performed By: #### L 500.4050, M100.7900, L500.4100, L100.0100, L501.9910, L400.2010 #### [facility] [address] [place], [address] WBC (Bld) [#/Vol] 6.3 10*3/uL Normal 4.4-11.0 [facility] Comment on above: Performed By: #### L 500.4050, M100.7900, L500.4100, L100.0100, L501.9910, L400.2010 #### [facility] [address] [place], [address] CTA Chest W/WO Contraston CTA Chest W/WO Contrast [facility] [address] [place] [address] CTA Chest W/WO Contrast MR#: [id number] Acct: [id number] Name: SHARA DELEON Rep #: [id number] : 1970 M 54 From: Edwin jerry MD PCP: Samuel Howard [employer]ED[employer] DUMPING SUPERVISOR-C Status: REG ER Study: CTA Chest W/WO Contrast Date of Exam: 04/08/25 Exam# [id number] Ordering Dr: Tone Mata MD PROCEDURE: CTA [...] embolism. The lungs are clear. Reading Location: [place] [address] CC: Dr. Tone Mata MD; [facility] SU[employer] DREDGE DUMPING SUPERVISOR-C Beam Speech Therapy Assistant: Signed Normal [facility] Carbon dioxide, total [Moles /volume] in Central venous bloodOrdered By: Tone Mata on 04-08-2025 CO2 [Moles/Vol] 21.9 mmol/L 21.0-32.0 [facility] Chloride assayOrdered By: Floyd Mata on 04-08-2025 Chloride [Moles/Vol] 106 mmol/L 98-108 [facility] Emergency Department Summary on 04-08-2025 Emergency Department Summary [facility] Medical Records Department [address] [place] [address] Emergency Department Summary 04/08/25 MR#: [id number] Acct: [id number] Name: SHARA DELEON Rep #: [id number] : 1970 54 From: Tone Mata MD PCP: Samuel Howard [facility] [employer]CTION [employer]EDGE DUMPING SUPERVISOR-C Status:REG ER Location: ED HPI History of [...] mL intramuscular syringe (diphth,pertus(acell ),tetanus) Flucelvax Quad 9801-9199 (PF) 60 0.5 ml IM ONCE #0.5 [...] can be discharged to follow-up with a windscreen fitter oncologist. I do not feel he requires observation or admission. He was told to continue the use of his blood thinner/Eliquis. Disposition is discharged home in stable condition. History Record Review Discussion w/independent historian: Patient Additional record(s) reviewed:: Prior ED visit (Had outpatient ultrasound which showed DVT of the soleus vein.) Lab Data Attestation: I reviewed the p (more content not included)... Normal [facility] Eosinophil percentageOrdered By: Tone Mata on 04-08-2025 Eosinophils/100 WBC (Bld) 1.8 % 0-5 [facility] Erythrocyte distribution wid th ratioOrdered By: Tone Mata on 04-08-2025 Erythrocyte distribution width (RBC) [Ratio] 12.7 % 11.6-14.6 [facility] Erythrocyte distribution wid th standard deviationOrdered By: Tone Mata on 04-08-2025 Erythrocyte distribution width (RBC) [Ratio] 44.0 fl High 35.1-43.9 [facility] Glomerular filtration rate ( GFR) estimation/1.73 sq m using serum, plasma, or whole bOrdered By: Tone Mata on 04-08-2025 GFR/1.73 sq M.predicted among non-blacks MDRD (S/P/Bld) [Vol rate/Area] 92 mL/min/{1.73_m2} >60 [facility] Comment on above: mL/min/1.73m2 CKD-EP I Creatinine Equation (2020) Hematocrit Auto (Bld) [Volum e fraction]Ordered By: Tone Mata on 04-08-2025 Hematocrit (Bld) [Volume fraction] 43.1 % 40-54 [facility] Hemoglobin measurementOrdere d By: Tone Mata on 04-08-2025 Hemoglobin (Bld) [Mass/Vol] 15.5 g/dL 13.0-16.5 [facility] Immature granulocytes/100 WB C Auto (Bld)Ordered By: Tone Mata on 04-08-2025 Immature granulocytes/100 WBC (Bld) 0.300 % 0.0-0.9 [facility] Comment on above: IG% - Immature Granu locytes (promyelocytes, myelocytes and metamyelocytes) > 1% indicates that a LEFT SHIFT is Present. MCV (mean corpuscular volume ) determinationOrdered By: Tone Mata on 04-08-2025 MCV (RBC) [Entitic vol] 94.1 fL High 80-94 [facility] Mean corpuscular hemoglobin (MCH) determinationOrdered By: Tone Mata on 04-08-2025 MCH (RBC) [Entitic mass] 33.8 pg High 27.0-32.0 [facility] Mean corpuscular hemoglobin concentration (MCHC) determinationOrdered By: Tone Mata on 04-08-2025 MCHC (RBC) [Mass/Vol] 36.0 g/dL 32-36 [facility] Mean platelet volume determi nationOrdered By: Tone aMta on 04-08-2025 Platelet mean volume (Bld) [Entitic vol] 9.1 fL 6.2-12.0 [facility] Monocyte percentageOrdered B y: Tone Mata on 04-08-2025 Monocytes/100 WBC (Bld) 11.8 % High 0-10 [facility] Neutrophil percentageOrdered By: Tone Mata on 04-08-2025 Neutrophils/100 WBC (Bld) 45.8 % Low 47-70 [facility] Nucleated red blood cell per centageOrdered By: Tone Mata on 04-08-2025 Nucleated RBC/100 WBC (Bld) [Ratio] 0 % 0-5 [facility] Platelet countOrdered By: Floyd Mata on 04-08-2025 Platelets (Bld) [#/Vol] 251 10*3/uL 150-450 [facility] Potassium measurement (mass/ volume)Ordered By: Tone Mata on 04-08-2025 Potassium (Unsp spec) [Mass/Vol] 4.1 mmol/L 3.3-5.1 [facility] RBC Auto (Bld) [#/Vol]Ordere d By: Tone Mata on 04-08-2025 RBC (Bld) [#/Vol] 4.58 10*6/uL Low 4.6-6.2 [facility] Serum creatinine measurement (mass/volume)Ordered By: Tone Mata on 04-08-2025 Creatinine [Mass/Vol] 0.97 mg/dL 0.70-1.20 [facility] Serum glucose measurement (m ass/volume)Ordered By: Tone Mata on 04-08-2025 Glucose [Mass/Vol] 91 mg/dL 70-99 [facility] Serum or plasma calcium armit urement (mass/volume)Ordered By: Tone Mata on 04-08-2025 Calcium [Mass/Vol] 8.9 mg/dL 7.6-11.0 [facility] Serum or plasma urea nitroge n measurement (mass/volume)Ordered By: Tone Mata on 04-08-2025 Urea nitrogen [Mass/Vol] 14 mg/dL 4-19 [facility] Sodium levelOrdered By: Yale Adolfo on 04-08-2025 Sodium [Moles/Vol] 138 mmol/L 133-145 [facility] White blood cell (WBC) count Ordered By: Tone Mata on 04-08-2025 WBC (Bld) [#/Vol] 6.3 10*3/uL 4.4-11.0 [facility] [id number] 01-30-2025 [facility] Misc. COMMENT Normal . [facility] Comment on above: Order Comment: Urine , Random Result Comment: Test Ordered: [id number] COAG Screen Reflexive Eval Prothrombin Time 11.6 [...] is provided for the assays performed at [facility] only. Interpretive Synopsis: The thrombin time and PT are normal, and a lupus anticoagulant is not detected. The aPTT falls below the normal reference interval. This can occur when factor VIII activity is elevated or when a sample is activated due to traumatic venipuncture or prolonged tourniquet placement. Please contact [facility] if further clarification is needed. Ashely Franco M.D. [id number] (Pathologist interpretation time: 10 minutes) Performed at: [facility] [address] [id number] Peat Shredder Tender: Juan Alberto Lares MD, Phone: [phone] Performed at: [facility] [id number] Pe[employer] Shred[employer] Tender: Jose Mello PhD, Phone: [phone] Performed By: #### L 500.4050, M100.7900, L500.4100, L100.0100, L501.9910, L400.2010 #### [facility] [address] [facility] [place], [address] Emergency Department Summary on 01-28-2025 Emergency Department Summary [facility] Medical Records Department [address] [place] [address] Emergency Department Summary 01/28/25 MR#: [id number] Acct: [id number] Name: SHARA DELEON Rep #: [id number] : 1970 54 From: Karri Escobedo DO PCP: Samuel Howard [facility] SUCTION DREDGE DUMPING SUPERVISOR-C Status:PRE ER Location: ED HPI History of [...] intact Psych: Cooperative, appropriate mood and affect [facility] Medical History Back pain Limb weakness Home Medications ???Medication ???Instructions ???Recorded ???Last Taken ???Type Boostrix Tdap 2.5 Lf unit-8 mcg-5 0.5 ml IM ONCE #1 mL 08/28/22 [facility] Lf/0.5 mL intramuscular syringe (diphth,pertus(acell ),tetanus) Flucelvax Quad 9232-9430 (PF) 60 0.5 ml IM ONCE #0.5 [...] (Updated 12/31/23 @ 09:02 by Sandro Corbin SUCTION DREDGE DUMPING SUPERVISOR, SUCTION DREDGE DUMPING SUPERVISOR-C) Mother Colon cancer Pancreatic cancer Blood clotting [...] no contradictions to anticoagulation. 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 I did explain to him that he [...] Prescriptions: New (more content not included)... Normal [facility] Venous Duplex US, Unilateral on 01-28-2025 Venous Duplex US, Unilateral [facility] [address] [address] Venous Duplex US, Unilateral 01/28/25 1048 MR#: [id number] Acct: [id number] Name: SHARA DELEON Rep #: [id number] : 1970 54 From: Lincoln Quigley MD Attending Dr: Samuel Howard Cristina SUCTION DREDGE DUMPING SUPERVISOR-C Status: REG CLI Ordering Dr: Samuel Howard SUCTION DREDGE DUMPING SUPERVISOR-C Date: 01/28/25 Location: [facility] Sex: M C [...] preliminary report was called and/or faxed to [employer] left on nurses line for Samuel Palma [...] 01/28/25 1406 Date Lincoln Quigley MD [facility]: [facility] SUCTION DREDGE DUMPING SUPERVISOR-C Anita Date Dictated: 01/28/25 1048 Date Transcribed: 01/28/25 140 Speech Therapy Assistant: Signed Normal [facility] Venous duplex ultrasound rep ortOrdered By: Lincoln Quigley on 01-28-2025 US Vein [facility] [address] [place] [address] Venous Duplex US, Unilateral 01/28/25 1048 MR#: [id number] Acct: [id number] Name: SHARA DELEON Rep #:[id number] : 1970 54 From: Lincoln Quigley MD Attending Dr: Bautista [facility]chelsea [facility] SUCTION DREDGE DUMPING SUPERVISOR-C Status: REG CLI Ordering Dr: Samuel Howard [facility] SUCTION DREDGE DUMPING SUPERVISOR-C Sharath e: 01/28/25 Location: [facility] Sex: M [...] Date _ Lincoln Quigley MD CC: Samuel [facility] SUCTION DREDGE DUMPING SUPERVISOR-C Anita ~ Date Dictated: 01/28/25 1048 Date Transcribed: 01/28/25 1406 Speech Therapy Assistant: Tawanda [facility] Other Office Visit Reporton 2024 Office Visit Report [facility] [address] [place] [address] OFFICE VISIT Date of Service: 01/12/25 MR#: [id number] Acct: [id number] Patient: SHARA DELEON Rep #: [id number] : 1970 Provider: CRUZ Sims Age/Sex: 54/M Location: [facility] Status: Signed Intake Vital Signs 08/16/24 10:12 [...] Cosigner Signature: Date (if applicable) CC: Normal [facility] Urgent Care Visit Reporton 0 01-12-2025 Urgent Care Visit Report [facility] [address], [address] [place] [address] OFFICE VISIT Date of Service: 01/12/25 MR#: [id number] Acct: [id number] Name: SHARA DELEON Rep #: [id number] : 1970 Provider: CRUZ Sims Age/Sex: 54/M Location: [facility] Status: Signed Intake Vital Signs 08/16/24 10:12 Height 5 ft 10 in Intake Visit Reasons: FF PHYSICAL/ WFD Chief Complaint: head/ear pressure, fever, BA, dizzy Allergies No Known Allergies Allergy (Verified 12/04/24 09:51) PFSH Medical History Back pain Limb weakness Surgical History History of back surgery Family History (Updated 12/31/23 @ 09:02 by Sandro Corbin NP, SUCTION DREDGE DUMPING SUPERVISOR-C) Mother Colon cancer Pancreatic cancer Blood clotting disorder Sister Blood clotting disorder Brother Blood clotting disorder Social History Smoking Status: Never smoker alcohol intake: current Alcohol type: beer HPI HPI Chief Complaint: head/ear pressure, fever, BA, dizzy Details: SHARA DELEON, is a 54 M who presents to the office today for Office Procedures Physical Exam Coding PE Coding Additional Details: piano refinisher pe Coding Level of Care Code No Charge Diagnoses Encounter for piano refinisher medical examination Z02.89 Assessment and Plan Assessment and Plan (1) Encounter for piano refinisher medical examination: Status: Acute 01/12/25 0851 Date Jamari Rodriguez Signature: Date (if applicable) CC: Normal [facility] Urgent Care Visit Reporton 0 12-04-2024 Urgent Care Visit Report [facility] [address], [address] [place] [address] OFFICE VISIT Date of Service: 12/04/24 MR#: [id number] Acct: [id number] Name: SHARA DELEON Rep #: [id number] : 1970 Provider: CRUZ Barron Age/Sex: 54/M Location: [facility] Status: Signed Intake Vital Signs 08/16/24 10:12 12/04/24 09:51 Height 5 ft 10 in BP 100/56 L Blood Pressure Location Rt brachial Position Sitting Respiration 15 Pulse 58 L Pulse Source NIBP Temp 98.4 F Temp Source Oral Pulse Oximetry (%) 98 Oxygen Delivery Method room air Intake Visit Reasons: CONCERN FOR SINUS INFECTION Chief Complaint: head/ear pressure, fever, BA, dizzy 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 tooth extraction 3 days ago, on Amox for that with no improvement in s/s [facility] Medical History Back pain Limb weakness Surgical History History of back surgery Family History (Updated 12/31/23 @ 09:02 by Sandro Corbin NP, SUCTION DREDGE DUMPING SUPERVISOR-C) Mother Colon cancer Pancreatic cancer Blood clotting [...] Cosigner Signature: Date (if applicable) CC: Normal [facility] Office Visit Reporton 2023 Office Visit Report [facility] [address] [facility] [place] [address] OFFICE VISIT Date of Service: 08/19/24 MR#: [id number] Acct: [id number] Patient: SHARA DELEON Rep #: [id number] : 1970 Provider: TROY Nuñez Age/Sex: 54/M Location: [facility] Status: Signed Intake Vital Signs 08/28/22 10:04 [...] Yes Urinalysis: Yes 09/23/24927 Date 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, [address] Absolute Neut 3.1 X10 3/uL Normal 2.0-7.7 [facility] Comment on above: Result Comment: NO S HOW Performed By: #### L 500.4050, M100.7900, L500.4100, L100.0100, L501.9910, L400.2010 #### [facility] [address] [place], [address] Basophils/100 WBC (Bld) 0.5 % Normal 0-1 [facility] Comment on above: Performed By: #### L 500.4050, M100.7900, L500.4100, L100.0100, L501.9910, L400.2010 #### [facility] [address] [place], [address] Eosinophils/100 WBC (Bld) 1.2 % Normal 0-5 [facility] Comment on above: Performed By: #### L 500.4050, M100.7900, L500.4100, L100.0100, L501.9910, L400.2010 #### [facility] [address] [place], [address] Erythrocyte distribution width (RBC) [Ratio] 12.6 % Normal 11.6-14.6 [facility] Comment on above: Result Comment: NO S HOW Performed By: #### L 500.4050, M100.7900, L500.4100, L100.0100, L501.9910, L400.2010 #### [facility] [address] [place], [address] Hematocrit (Bld) [Volume fraction] 42.4 % Normal 40-54 [facility] Comment on above: Result Comment: NO S HOW Performed By: #### L 500.4050, M100.7900, L500.4100, L100.0100, L501.9910, L400.2010 #### [facility] [address] [place], [address] Hemoglobin (Bld) [Mass/Vol] 14.6 g/dL Normal 13.0-16.5 [facility] Comment on above: Result Comment: NO S HOW Performed By: #### L 500.4050, M100.7900, L500.4100, L100.0100, L501.9910, L400.2010 #### [facility] [address] [place], [address] IG% 0.200 Normal 0.0-0.9 [facility] Comment on above: Result Comment: IG% - Immature Granulocytes (promyelocytes, myelocytes and metamyelocytes) > 1% indicates that a LEFT SHIFT is Present. Performed By: #### L 500.4050, M100.7900, L500.4100, L100.0100, L501.9910, L400.2010 #### [facility] [address] [place], [address] Lymphocytes/100 WBC (Bld) 39.9 % Normal 19-41 [facility] Comment on above: Performed By: #### L 500.4050, M100.7900, L500.4100, L100.0100, L501.9910, L400.2010 #### [facility] [address] [place], [address] MCH (RBC) [Entitic mass] 32.4 pg High 27.0-32.0 [facility] Comment on above: Result Comment: NO S HOW Performed By: #### L 500.4050, M100.7900, L500.4100, L100.0100, L501.9910, L400.2010 #### [facility] [address] [place], [address] MCHC (RBC) [Mass/Vol] 34.4 g/dL Normal 32-36 [facility] Comment on above: Result Comment: NO S HOW Performed By: #### L 500.4050, M100.7900, L500.4100, L100.0100, L501.9910, L400.2010 #### [facility] [address] [place], [address] MCV (RBC) [Entitic vol] 94.2 fL High 80-94 [facility] Comment on above: Result Comment: NO S HOW Performed By: #### L 500.4050, M100.7900, L500.4100, L100.0100, L501.9910, L400.2010 #### [facility] [address] [place], [address] Monocytes/100 WBC (Bld) 10.2 % High 0-10 [facility] Comment on above: Performed By: #### L 500.4050, M100.7900, L500.4100, L100.0100, L501.9910, L400.2010 #### [facility] [address] [place], [address] Neutrophils/100 WBC (Bld) 48.0 % Normal 47-70 [facility] Comment on above: Result Comment: NO S HOW Performed By: #### L 500.4050, M100.7900, L500.4100, L100.0100, L501.9910, L400.2010 #### [facility] [address] [place], [address] Nucleated RBC (Bld) [#/Vol] 0 10*3/uL Normal 0-5 [facility] Comment on above: Performed By: #### L 500.4050, M100.7900, L500.4100, L100.0100, L501.9910, L400.2010 #### [facility] [address] [place], [address] Platelet mean volume (Bld) [Entitic vol] 9.6 fL Normal 6.2-12.0 [facility] Comment on above: Performed By: #### L 500.4050, M100.7900, L500.4100, L100.0100, L501.9910, L400.2010 #### [facility] [address] [place], [address] Platelets (Bld) [#/Vol] 282 10*3/uL Normal 150-450 [facility] Comment on above: Result Comment: NO S HOW Performed By: #### L 500.4050, M100.7900, L500.4100, L100.0100, L501.9910, L400.2010 #### [facility] [address] [place], [address] RBC (Bld) [#/Vol] 4.50 10*6/uL Low 4.6-6.2 [facility] Comment on above: Result Comment: NO S HOW Performed By: #### L 500.4050, M100.7900, L500.4100, L100.0100, L501.9910, L400.2010 #### [facility] [address] [place], [address] RDW SD 43.9 fl Normal 35.1-43.9 [facility] Comment on above: Result Comment: NO S HOW Performed By: #### L 500.4050, M100.7900, L500.4100, L100.0100, L501.9910, L400.2010 #### [facility] [address] [place], [address] WBC (Bld) [#/Vol] 6.5 10*3/uL Normal 4.4-11.0 [facility] Comment on above: Result Comment: NO S HOW Performed By: #### L 500.4050, M100.7900, L500.4100, L100.0100, L501.9910, L400.2010 #### [facility] [address] [place], [address] Comprehensive Metabolic Prof ilon 09-15-2024 Albumin [Mass/Vol] 3.7 g/dL Normal 3.2-5.0 [facility] Comment on above: Result Comment: NO S HOW Performed By: #### L 500.4050, M100.7900, L500.4100, L100.0100, L501.9910, L400.2010 #### [facility] [address] [place], [address] Albumin/Globulin [Mass ratio] 1.1 {ratio} Normal 0.9-2.4 [facility] Comment on above: Performed By: #### L 500.4050, M100.7900, L500.4100, L100.0100, L501.9910, L400.2010 #### [facility] [address] [place], [address] ALK P 51 U/L Normal 45-117 [facility] Comment on above: Result Comment: NO S HOW Performed By: #### L 500.4050, M100.7900, L500.4100, L100.0100, L501.9910, L400.2010 #### [facility] [address] [place], [address] ALT [Catalytic activity/Vol] 24 U/L Normal 16-61 [facility] Comment on above: Result Comment: NO S HOW Performed By: #### L 500.4050, M100.7900, L500.4100, L100.0100, L501.9910, L400.2010 #### [facility] [address] [place], [address] AST [Catalytic activity/Vol] 16 U/L Normal 15-37 [facility] Comment on above: Result Comment: NO S HOW Performed By: #### L 500.4050, M100.7900, L500.4100, L100.0100, L501.9910, L400.2010 #### [facility] [address] [place], [address] Bilirubin [Mass/Vol] 0.70 mg/dL Normal 0.20-1.00 [facility] Comment on above: Result Comment: For patients on eltrombopag therapy, use of Dimension [place] TBIL is not recommended. Performed By: #### L 500.4050, M100.7900, L500.4100, L100.0100, L501.9910, L400.2010 #### [facility] [address] [place], [address] BUN/CRE 15.2 RATIO Normal 10-20 [facility] Comment on above: Result Comment: NO S HOW Performed By: #### L 500.4050, M100.7900, L500.4100, L100.0100, L501.9910, L400.2010 #### [facility] [address] [place], [address] CA,Total 8.7 mg/dL Normal 8.5-10.1 [facility] Comment on above: Result Comment: NO S HOW Performed By: #### L 500.4050, M100.7900, L500.4100, L100.0100, L501.9910, L400.2010 #### [facility] [address] [place], [address] Chloride [Moles/Vol] 107 mmol/L Normal 98-107 [facility] Comment on above: Result Comment: NO S HOW Performed By: #### L 500.4050, M100.7900, L500.4100, L100.0100, L501.9910, L400.2010 #### [facility] [address] [place], [address] CO2 [Moles/Vol] 24.0 mmol/L Normal 21.0-32.0 [facility] Comment on above: Result Comment: NO S HOW Performed By: #### L 500.4050, M100.7900, L500.4100, L100.0100, L501.9910, L400.2010 #### [facility] [address] [place], [address] Creatinine [Mass/Vol] 1.12 mg/dL Normal 0.70-1.30 [facility] Comment on above: Result Comment: The validity of the calculated GFR GFRAA in patients over 70 years has not been determined. Clinical correlation is essential. Performed By: #### L 500.4050, M100.7900, L500.4100, L100.0100, L501.9910, L400.2010 #### [facility] [address] [place], [address] EST GFR - AA 88 mL/min Normal >60 [facility] Comment on above: Result Comment: Afri can Lao GFR Calc Performed By: #### L 500.4050, M100.7900, L500.4100, L100.0100, L501.9910, L400.2010 #### [facility] [address] [place], [address] GAP 8 Normal 5-15 [facility] Comment on above: Result Comment: NO S HOW Performed By: #### L 500.4050, M100.7900, L500.4100, L100.0100, L501.9910, L400.2010 #### [facility] [address] [place], [address] GFR/1.73 sq M.predicted among non-blacks MDRD (S/P/Bld) [Vol rate/Area] 73 mL/min/{1.73_m2} Normal >60 [facility] Comment on above: Result Comment: Non- GFR Calc Performed By: #### L 500.4050, M100.7900, L500.4100, L100.0100, L501.9910, L400.2010 #### [facility] [address] [place], [address] Globulin (S) [Mass/Vol] 3.5 g/dL Normal 2.2-4.2 [facility] Comment on above: Performed By: #### L 500.4050, M100.7900, L500.4100, L100.0100, L501.9910, L400.2010 #### [facility] [address] [place], [address] Glucose [Mass/Vol] 90 mg/dL Normal 74-106 [facility] Comment on above: Result Comment: NO S HOW Performed By: #### L 500.4050, M100.7900, L500.4100, L100.0100, L501.9910, L400.2010 #### [facility] [address] [place], [address] Potassium [Moles/Vol] 4.4 mmol/L Normal 3.5-5.1 [facility] Comment on above: Result Comment: NO S HOW Performed By: #### L 500.4050, M100.7900, L500.4100, L100.0100, L501.9910, L400.2010 #### [facility] [address] [place], [address] Sodium [Moles/Vol] 139 mmol/L Normal 136-145 [facility] Comment on above: Result Comment: NO S HOW Performed By: #### L 500.4050, M100.7900, L500.4100, L100.0100, L501.9910, L400.2010 #### [facility] [address] [place], [address] T PROT 7.2 g/dL Normal 6.4-8.2 [facility] Comment on above: Result Comment: NO S HOW Performed By: #### L 500.4050, M100.7900, L500.4100, L100.0100, L501.9910, L400.2010 #### [facility] [address] [place], [address] Urea nitrogen [Mass/Vol] 17 mg/dL Normal 7-18 [facility] Comment on above: Result Comment: NO S HOW Performed By: #### L 500.4050, M100.7900, L500.4100, L100.0100, L501.9910, L400.2010 #### [facility] [address] [place], [address] Lipid Profileon 09-15-2024 Cholesterol [Mass/Vol] 190 mg/dL Normal 200 [facility] Comment on above: Result Comment: <200 mg/dL Desirable 200-240 mg/dL Borderline >240 mg/dL High Risk Performed By: #### L 500.4050, M100.7900, L500.4100, L100.0100, L501.9910, L400.2010 #### [facility] [address] [place], [address] Cholesterol in HDL [Mass/Vol] 80 mg/dL Normal [facility] Comment on above: Result Comment: The drugs N-Acetylcysteine and Metamizole may falsely depress this assay. Reference Range HDL <40 mg/dL Low HDL Cholesterol HDL >or= 60 mg/dL High HDL Cholesterol Performed By: #### L 500.4050, M100.7900, L500.4100, L100.0100, L501.9910, L400.2010 #### [facility] [address] [place], [address] Cholesterol in LDL [Mass/Vol] 100 mg/dL Normal 0-130 [facility] Comment on above: Result Comment: NO S HOW Performed By: #### L 500.4050, M100.7900, L500.4100, L100.0100, L501.9910, L400.2010 #### [facility] [address] [place], [address] Cholesterol in VLDL [Mass/Vol] 10 mg/dL Normal 5-40 [facility] Comment on above: Result Comment: NO S HOW Performed By: #### L 500.4050, M100.7900, L500.4100, L100.0100, L501.9910, L400.2010 #### [facility] [address] [place], [address] Triglyceride [Mass/Vol] 48 mg/dL Normal [facility] Comment on above: Result Comment: The drugs N-Acetylcysteine and Metamizole may falsely depress this assay. Serum Triglycerides Reference Interval Normal <150 mg/dL Borderline high 150 - 199 mg/dL High 200 - 499 mg/dL Very High > or = 500 mg/dL Performed By: #### L 500.4050, M100.7900, L500.4100, L100.0100, L501.9910, L400.2010 #### [facility] [address] [place], [address] PSA,Total - Annual Screenon 09-15-2024 PSA,TOT SCREEN 0.63 ng/mL Normal 0.00-4.00 [facility] Comment on above: Result Comment: This test was performed using the TPSA assay method for the [employer] chemistry system. Values obtained with different assay methods cannot be used interchangably. When changing PSA assays in the course of monitoring a patient, additional sequential testing should be carried out to confirm baseline values. Performed By: #### L 500.4050, M100.7900, L500.4100, L100.0100, L501.9910, L400.2010 #### [facility] [address] [place], [address] Stool Occult Blood iFOBon STOB Negative Normal [facility] Comment on above: Performed By: #### L 500.4050, M100.7900, L500.4100, L100.0100, L501.9910, L400.2010 #### [facility] [address] [place], [address] Urinalysis, Routine (Dipstic k)on 09-15-2024 BILIRUBIN URINE Negative Normal Negative [facility] Comment on above: Order Comment: Urine , Random Result Comment: NO S HOW Performed By: #### L 500.4050, M100.7900, L500.4100, L100.0100, L501.9910, L400.2010 #### [facility] [address] [place], [address] Clarity (U) Clear Normal Clear [facility] Comment on above: Order Comment: Urine , Random Result Comment: NO S HOW Performed By: #### L 500.4050, M100.7900, L500.4100, L100.0100, L501.9910, L400.2010 #### [facility] [address] [place], [address] Color (U) Yellow Normal Yellow [facility] Comment on above: Order Comment: Urine , Random Result Comment: NO S HOW Performed By: #### L 500.4050, M100.7900, L500.4100, L100.0100, L501.9910, L400.2010 #### [facility] [address] [place], [address] GLUCOSE, UR Normal Normal Normal [facility] Comment on above: Order Comment: Urine , Random Result Comment: NO S HOW Performed By: #### L 500.4050, M100.7900, L500.4100, L100.0100, L501.9910, L400.2010 #### [facility] [address] [place], [address] KETONE UR Negative Normal Negative [facility] Comment on above: Order Comment: Urine , Random Result Comment: NO S HOW Performed By: #### L 500.4050, M100.7900, L500.4100, L100.0100, L501.9910, L400.2010 #### [facility] [address] [place], [address] LEUK ESTERASE Negative Normal Negative [facility] Comment on above: Order Comment: Urine , Random Result Comment: NO S HOW Performed By: #### L 500.4050, M100.7900, L500.4100, L100.0100, L501.9910, L400.2010 #### [facility] [address] [place], [address] Nitrite Ql (U) Negative Normal Negative [facility] Comment on above: Order Comment: Urine , Random Result Comment: NO S HOW Performed By: #### L 500.4050, M100.7900, L500.4100, L100.0100, L501.9910, L400.2010 #### [facility] [address] [place], [address] OCCULT BLOOD-UR Negative Normal Negative [facility] Comment on above: Order Comment: Urine , Random Result Comment: NO S HOW Performed By: #### L 500.4050, M100.7900, L500.4100, L100.0100, L501.9910, L400.2010 #### [facility] [address] [place], [address] pH UR 7.0 Normal 5.0 - 8.0 [facility] Comment on above: Order Comment: Urine , Random Result Comment: NO S HOW Performed By: #### L 500.4050, M100.7900, L500.4100, L100.0100, L501.9910, L400.2010 #### [facility] [address] [place], [address] PROT DIPSTX Negative Normal Negative [facility] Comment on above: Order Comment: Urine , Random Result Comment: NO S HOW Performed By: #### L 500.4050, M100.7900, L500.4100, L100.0100, L501.9910, L400.2010 #### [facility] [address] [place], [address] SP.GR. DIPSTX 1.010 Normal 1.002-1.030 [facility] Comment on above: Order Comment: Urine , Random Result Comment: NO S HOW Performed By: #### L 500.4050, M100.7900, L500.4100, L100.0100, L501.9910, L400.2010 #### [facility] [address] [place], [address] UROBILI Normal Normal Normal [facility] Comment on above: Order Comment: Urine , Random Result Comment: NO S HOW Performed By: #### L 500.4050, M100.7900, L500.4100, L100.0100, L501.9910, L400.2010 #### [facility] [address] [place], [address] Lower GI hemoglobin IA Ql (S tl)on [...] it is assumed that there are 5 ioo-ayd-jnwhgbk, lumbar-type vertebrae, and the most caudal fully [...] PM Sign Date: 05/14/2018 4:37:03 PM Normal [facility] ([place] CMPon 06-08-2017 Alanine aminotransferase (ALT) 18 ZZ Normal 10-35 [facility] ([place] Comment on above: Performed By: #### H GMP, CMP, GFR, PSA, TSH ####[address] [place], [place] [address] Albumin 4.3 G/dL Normal 3.5-5.0 [facility] ([place]) Comment on above: Performed By: #### H GMP, CMP, GFR, PSA, TSH ####Arina [address] [place], [place] [address] Albumin/Globulin Ratio 2.0 {ratio} Normal 1.1-2.5 A [facility] ([place]) Comment on above: Performed By: #### H GMP, CMP, GFR, PSA, TSH ####Ar[address] [place], [place] [address] Alk Phos 44 ZZ Normal 40-135 [facility] ([place] Comment on above: Performed By: #### H GMP, CMP, GFR, PSA, TSH ####Ar[address] [place], [place] [address] Aspartate aminotransferase (AST) 22 ZZ Normal 10-40 [facility] ([place] Comment on above: Performed By: #### H GMP, CMP, GFR, PSA, TSH ####Ar[address] [place], [place] [address] Bili Total 0.2 mg/dL Normal 0.2-1.0 [facility] ([place] Comment on above: Performed By: #### H GMP, CMP, GFR, PSA, TSH ####[address] [place], [place] [address] BUN/Creatinine Ratio 12 ratio Normal 7-27 [facility] ([place]) Comment on above: Performed By: #### H GMP, CMP, GFR, PSA, TSH ####Ar[address] [place], [place] [address] Calcium 8.8 mg/dL Normal 8.4-10.2 [facility] ([place] Comment on above: Performed By: #### H GMP, CMP, GFR, PSA, TSH ####Arina [address] [place], [place] [address] Chloride 104 mmol/L Normal 98-107 [facility] ([place] Comment on above: Performed By: #### H GMP, CMP, GFR, PSA, TSH ####Arina [address] [place], [place] [address] CO2 27 mmol/L Normal 22-29 [facility] ([place] Comment on above: Performed By: #### H GMP, CMP, GFR, PSA, TSH ####Arina [address] [place], [place] [address] Creatinine 1.1 mg/dL Normal 0.6-1.2 [facility] ([place] Comment on above: Performed By: #### H GMP, CMP, GFR, PSA, TSH ####Arina [address] [place], [place] [address] Electrolyte Balance 7.0 mEq/L Normal [facility] ([place]) Comment on above: Performed By: #### H GMP, CMP, GFR, PSA, TSH ####[address] [place], [place] [address] Globulin 2.2 G/dL Normal [facility] ([place] Comment on above: Performed By: #### H GMP, CMP, GFR, PSA, TSH ####[address] [place], [place] [address] Glucose mass conc 90 mg/dL Normal 70-105 [facility] ([place] Comment on above: Performed By: #### H GMP, CMP, GFR, PSA, TSH ####[address] [place], [place] [address] Potassium molar conc 4.8 mmol/L Normal 3.5-5.1 [facility] ([place]) Comment on above: Performed By: #### H GMP, CMP, GFR, PSA, TSH ####[address] [place], [place] [address] Protein 6.5 G/dL Normal 6.0-8.3 [facility] ([place] Comment on above: Performed By: #### H GMP, CMP, GFR, PSA, TSH ####[address] [place], [place] [address] Sodium 138 mmol/L Normal 136-146 [facility] ([place] Comment on above: Performed By: #### H GMP, CMP, GFR, PSA, TSH ####[address] [place], [place] [address] Urea nitrogen 13.4 mg/dL Normal 7.0-18.0 [facility] ([place] Comment on above: Performed By: #### H GMP, CMP, GFR, PSA, TSH ####[address] [place], [place] [address] GFRon 06-08-2017 eGFR (non-black) mL/min/{1.73_m2} Normal [facility] ([place]) Comment on above: Result Comment: GFR Population [...] H GMP, CMP, GFR, PSA, TSH ####Arina [address] [place], [place] [address] eGFR (non-black) 89 ml/min/1.73sqm Normal A [facility] ([place]) Comment on above: Result Comment: GFR Population [...] H GMP, CMP, GFR, PSA, TSH ####Arina [address] [place], [place] [address] HGMPon 06-08-2017 Erythrocyte distribution width Auto Ratio (RBC) 13.2 % Normal 11.5-14.5 [facility] ([place] Comment on above: Performed By: #### H GMP, CMP, GFR, PSA, TSH ####[address] [place], [place] [address] Erythrocytes (RBC) 4.38 10 6/mcL Normal 4.04-6.13 [facility] ([place]) Comment on above: Performed By: #### H GMP, CMP, GFR, PSA, TSH ####[address] [place], [place] [address] Hematocrit (HCT) 43.2 % Normal 42.0-52.0 [facility] ([place] Comment on above: Performed By: #### H GMP, CMP, GFR, PSA, TSH ####[address] [place], [place] [address] Hemoglobin mass conc (Bld) 15.0 G/dL Normal 14.0-18.0 [facility] ([place] Comment on above: Performed By: #### H GMP, CMP, GFR, PSA, TSH ####[address] [place], [place] [address] MCH 34.1 pg High 27.0-31.2 [facility] ([place] Comment on above: Performed By: #### H GMP, CMP, GFR, PSA, TSH ####[address] [place], [place] [address] MCHC mass conc (RBC) 34.7 G/dL Normal 31.8-35.4 [facility] ([place]) Comment on above: Performed By: #### H GMP, CMP, GFR, PSA, TSH ####[address] [place], [place] [address] MCV 98.5 fL High 80.0-94.0 [facility] ([place] Comment on above: Performed By: #### H GMP, CMP, GFR, PSA, TSH ####[address] [place], [place] [address] Platelet mean volume (PMV) 9.0 fL Normal 7.4-10.4 [facility] ([place] Comment on above: Performed By: #### H GMP, CMP, GFR, PSA, TSH ####[address] [place], [place] [address] Platelets 203 10 3/mcL Normal 130-400 [facility] ([place] Comment on above: Performed By: #### H GMP, CMP, GFR, PSA, TSH ####[address] [place], [place] [address] WBC (Leukocytes) 5.20 10 3/mcL Normal 4.60-10.80 [facility] ([place]) Comment on above: Performed By: #### H GMP, CMP, GFR, PSA, TSH ####[address] [place], [place] [address] PSAon 06-08-2017 Prostate Specific Antigen 0.62 ng/mL Normal 0.00-4.00 [facility] ([place] Comment on above: Performed By: #### H GMP, CMP, GFR, PSA, TSH ####[address] [place], [place] [address] TSHon 06-08-2017 Thyroid stimulating hormone (TSH) 2.24 mcIU/mL Normal 0.27-4.20 [facility] ([place] Comment on above: Performed By: #### H GMP, CMP, GFR, PSA, TSH ####[address] [place], [place] [address] Vital Signs Date Time Vital Sign Value Performing Clinician Paddy wagner 05-27-2025 09:31-0400 Body height 177.8 cm Zebulun Beam [employer] Work Phone: [facility] 05-27-2025 09:31-0400 Body mass index (BMI) [Ratio] 25.9 kg/m2 Zebulun Beam [employer] Work Phone: [facility] 05-27-2025 [id number] Body weight 82.1 kg Zebulun Beam [employer] SUPER[employer] Work Phone: [facility] 05-27-2025 09:31-0400 Diastolic blood pressure 77 mm[Hg] Zebulun Beam [employer]PER[employer] Work Phone: 7(848)283-378935 [place] [address] 05-27-2025 09:31-0400 Heart rate 65 /min Zebulun Beam [employer] Work Phone: 8(587)239-465335 [place] [address] 05-27-2025 09:31-0400 Respiratory rate 14 /min Zebulun Beam [employer]PER[employer] Work Phone: 6(689)043-303635 [place] [address] 05-27-2025 09:31-0400 Systolic blood pressure 116 mm[Hg] Zebulun Beam [employer] SUPER[employer] Work Phone: 0(120)189-457735 [place] [address] 05-19-2025 11:14-0400 Body height 177.8 cm Zebulun Beam [employer] SUPER[employer] Work Phone: 5(844)128-739735 [place] [address] 05-19-2025 11:14-0400 Body mass index (BMI) [Ratio] 25.2 kg/m2 Zebulun Beam [employer] Work Phone: 5(008)004-177335 [place] [address] 05-19-2025 11:14-0400 Body temperature 98.2 [degF] Zebulun Beam [employer] SU[employer] Work Phone: 9(642)473-857735 [place] [address] 05-19-2025 11:14-0400 Body weight 79.6 kg Zebulun Beam [employer] Work Phone: 8(475)283-628735 [place] [address] 05-19-2025 11:14-0400 Diastolic blood pressure 80 mm[Hg] Zebulun Beam [employer] SUPER[employer] Work Phone: 6(571)153-446735 [place] [address] 05-19-2025 11:14-0400 Heart rate 51 /min Zebulun Beam [employer] Work Phone: 0(963)917-249435 [place] [address] 05-19-2025 11:14-0400 Respiratory rate 18 /min Zebulun Beam [employer] Work Phone: 0(088)340-267835 [place] [address] 05-19-2025 11:14-0400 SaO2% (BldA) [Mass fraction] 100 % Zebulun Beam [employer] Work Phone: 7(207)540-676835 [place] [address] 05-19-2025 11:14-0400 Systolic blood pressure 124 mm[Hg] Zebulun Beam [employer] SUPER[employer]OR[employer]C Work Phone: [facility] 04-20-2025 15:37-0400 Body height 177.[address] Rigoberto Reddy MD Work Phone: 0(082)717-047120 [place] [address] 04-20-2025 15:35-0400 Body mass index (BMI) [Ratio] 25.4 kg/m2 Dr. Rigoberto Reddy MD Work Phone: 1(281)080-451920 [place] [address] 04-20-2025 15:35-0400 Body temperature 98.1 [degF] Dr. Rigoberto Reddy MD Work Phone: 1(200)840-369120 [place] [address] 04-20-2025 15:35-0400 Body weight 80.[address] Rigoberto Reddy MD Work Phone: 9(009)239-656820 [place] [address] 04-20-2025 15:35-0400 Diastolic blood pressure 67 mm[Hg] Dr. Rigoberto Reddy MD Work Phone: 6(072)666-341920 [place] [address] 04-20-2025 15:35-0400 Heart rate 66 /min Dr. Rigoberto Reddy MD Work Phone: 4(288)305-389320 [place] [address] 04-20-2025 15:35-0400 Respiratory rate 18 /min Dr. Rigoberto Reddy MD Work Phone: 9(783)476-728220 [place] [address] 04-20-2025 15:35-0400 SaO2% (BldA) [Mass fraction] 96 % Dr. Rigoberto Reddy MD Work Phone: 5(122)429-605520 [place] [address] 04-20-2025 15:35-0400 Systolic blood pressure 106 mm[Hg] Dr. Rigoberto Reddy MD Work Phone: 4(034)853-376520 [place] [address] 04-08-2025 08:57-0400 Body temperature 97.7 [degF] Dr. Rigoberto Reddy MD Work Phone: 9(453)270-910520 [place] [address] 04-08-2025 08:57-0400 Diastolic blood pressure 88 mm[Hg] Dr. Rigoberto Reddy MD Work Phone: 5(209)841-329320 [place] [address] 04-08-2025 08:57-0400 Heart rate 46 /min Dr. Rigoberto Reddy MD Work Phone: 2(561)642-597320 [place] [address] 04-08-2025 08:57-0400 Respiratory rate 16 /min Dr. Rigoberto Reddy MD Work Phone: 3(274)282-745420 [place] [address] 04-08-2025 08:57-0400 SaO2% (BldA) [Mass fraction] 99 % Dr. Rigoberto Reddy MD Work Phone: 4(102)244-988220 [place] [address] 04-08-2025 08:57-0400 Systolic blood pressure 125 mm[Hg] Dr. Rigoberto Reddy MD Work Phone: 1(104)419-345020 [place] [address] 04-08-2025 07:05-0400 Body height 177.[address] Rigoberto Reddy MD Work Phone: 6(485)854-435520 [place] [address] 04-08-2025 07:05-0400 Body mass index (BMI) [Ratio] 25.8 kg/m2 Dr. Rigoberto Reddy MD Work Phone: 9(259)467-297520 [place] [address] 04-08-2025 07:05-0400 Body weight 81.[address] Rigoberto Reddy MD Work Phone: 4(141)090-351220 [place] [address] 01-28-2025 11:59-0400 Body height 177.[address] Rigoberto Reddy MD Work Phone: 0(538)149-382320 [place] [address] 01-28-2025 11:59-0400 Body temperature 97.1 [degF] Dr. Rigoberto Reddy MD Work Phone: 1(323)094-845520 [place] [address] 01-28-2025 11:59-0400 Diastolic blood pressure 92 mm[Hg] Dr. Rigoberto Reddy MD Work Phone: 5(142)314-553920 [place] [address] 01-28-2025 11:59-0400 Heart rate 64 /min Dr. Rigoberto Reddy MD Work Phone: 0(604)275-197220 [place] [address] 01-28-2025 11:59-0400 Respiratory rate 15 /min Dr. Rigoberto Reddy MD Work Phone: 3(312)058-000720 [place] [address] 01-28-2025 11:59-0400 SaO2% (BldA) [Mass fraction] 100 % Dr. Rigoberto Reddy MD Work Phone: 8(469)092-124920 [place] [address] 01-28-2025 11:59-0400 Systolic blood pressure 133 mm[Hg] Dr. Rigoberto Reddy MD Work Phone: 9(496)762-617220 [place] [address] 12-04-2024 09:51-0500 Body temperature 98.4 [degF] Dr. Rigoberto Reddy MD Work Phone: 1(804)708-575420 [place] [address] 12-04-2024 09:51-0500 Diastolic blood pressure 56 mm[Hg] Dr. Rigoberto Reddy MD Work Phone: 8(646)955-945120 [place] [address] 12-04-2024 09:51-0500 Heart rate 58 /min Dr. Rigoberto Reddy MD Work Phone: 9(752)884-173420 [place] [address] 12-04-2024 09:51-0500 Respiratory rate 15 /min Dr. Rigoberto Reddy MD Work Phone: 8(951)910-148720 [place] [address] 12-04-2024 09:51-0500 SaO2% (BldA) [Mass fraction] 98 % Dr. Rigoberto Reddy MD Work Phone: 2(700)585-128320 [place] [address] 12-04-2024 09:51-0500 Systolic blood pressure 100 mm[Hg] Dr. Rigoberto Reddy MD Work Phone: [facility] Encounters Encounter Date Encounter Type Care Provider Facility Start: 05-27-2025 ambulatory Zebulun Beam Facility:[facility] Start: 05-27-2025 End: 05-27-[address] Uzair Gaffney MD -[facility] Work Phone: Start: 05-27-2025 End: 05-27-2025 ambulatory Zebulun Beam [employer] Work Phone: -[facility] Start: 05-19-[address] Anthony Medina MD -[facility] Start: 05-19-2025 End: 05-19-[address] Anthony Medina MD -[facility] Work Phone: Start: 05-19-2025 End: 05-19-2025 ambulatory Zebulun Beam [employer] Work Phone: -[facility] Start: 04-20-[address] Anthony Medina MD -[facility] Start: 04-20-2025 End: 04-20-[address] Anthony Medina MD -[facility] Work Phone: Start: 04-20-2025 End: 04-20-[address] Rigoberto Reddy MD Work Phone: [facility] Work Phone: Start: 04-08-2025 End: 04-08-2025 Emergency department patient visit Dr. Rigoberto Reddy MD Work Phone: -Emergency Department Work Phone: Start: 03-05-2025 Non-[facility] [facility] Work Phone: Start: 03-05-2025 ambulatory [facility] Facility :[facility] Start: 01-29-2025 Encounter for genera l adult medical examination without abnormal findings [facility] Start: 01-28-2025 End: 01-28-2025 Emergency department patient visit Dr. Rigoberto Reddy MD Work Phone: -Emergency Department Work Phone: Start: 01-28-2025 End: 01-28-[address] Rigoberto Reddy MD Work Phone: [facility] Work Phone: Start: 01-28-2025 End: 01-28-2025 Patient encounter procedure Samuel Howard [employer] SUPER[employer]OR-C -[facility] Work Phone: Start: 01-28-2025 End: 01-28-2025 ambulatory [facility] Facility:[facility] Start: 01-20-2025 End: 01-20-[address] Rigoberto Reddy MD Work Phone: [facility] Work Phone: Start: 01-20-2025 End: 01-20-2025 Patient encounter procedure Samuel Howard [employer]PER[employer]-C -[facility] Start: 01-20-2025 End: 01-20-2025 ambulatory Zebulun Beam Facility:[facility] Start: 01-12-2025 End: 01-12-2025 Patient encounter [...] abstracting Gaby Ivy MA [facility] [place] Start: 05-14-2018 Ambulatory ANTONIO NERI Fa cility:B Start: 06-08-2017 End: 06-12-2017 Ambulatory IRVING SALTER Facility:[facility] Procedures Date Procedure Procedure Detail Performing Clinician Start: 05-19-2025 D-dimer assay, quantitative Zebulun Beam [employer]PER[employer]C Work Phone: Comment on above: D-Dimer ELEVATED [...] Author Start: 08-17-2026 LIPID SCREEN LIPID SCREEN [facility] Start: 05-27-2025 Evaluation of diagnostic study results [facility] Start: 05-19-2025 [facility] Start: 05-11-2025 Colonoscopy COLONOSCOPY [facility] Start: 05-11-2025 COLORECTAL CANCER SCREENING COLORECTAL CANCER SCREENING [facility] Start: 04-20-2025 CBC W Auto Differential panel - Blood [facility] Start: 04-20-2025 Comprehensive metabolic 2000 panel - Serum or Plasma [facility] Start: 04-20-2025 D-dimer assay, quantitative [facility] Start: 04-20-2025 Lactate dehydrogenase measurement [facility] Start: 04-20-2025 Partial thromboplastin time, activated [facility] Start: 04-20-2025 Prothrombin time [facility] Start: 04-20-2025 [facility] Start: 04-08-2025 [facility] Start: 01-28-2025 [facility] Start: 09-01-2023 FECAL OCCULT BLOOD FECAL OCCULT BLOOD [facility] Start: 07-13-2022 Influenza vaccination INFLUENZA (#1) [facility] Start: 11-12-2021 DEPRESSION ASSESSMENT DEPRESSION ASSESSMENT [facility] Start: 2020 SHINGRIX VACCINE (1 of 2) SHINGRIX VACCINE (1 of 2) [facility] Start: 2015 COLOGUARD (FIT-DNA) COLOGUARD (FIT-DNA) [facility] Start: [address] COLONOGRAPHY [facility] Start: 2015 DIABETES SCREEN DIABETES SCREEN [facility] Start: 2015 SIGMOIDOSCOPY SIGMOIDOSCOPY [facility] Start: 1989 Urine microalbumin profile DTAP,TDAP,TD (1 - Tdap) [facility] Start: 1988 HEPATITIS C SCREENING HEPATITIS C SCREENING [facility] Start: 1988 HIV SCREENING HIV SCREENING [facility] Start: 01-25-1971 COVID-19 VACCINE (#1) COVID-19 VACCINE (#1) [facility] Start: 1970 HEPATITIS B (1 of 3 - 3-dose series) HEPATITIS B (1 of 3 - 3-dose series) [facility] Alanine aminotransfe rase [Enzymatic activity/volume] in Serum or Plasma [facility] Albumin [Mass/volume ] in Serum or Plasma [facility] Alkaline phosphatase [Enzymatic activity/volume] in Serum or Plasma [facility] Anion gap in Serum o r Plasma [facility] Bilirubin, total measurement [facility] BUN/Creatinine ratio [facility] Calcium [Mass/volume ] in Serum or Plasma [facility] Carbon dioxide, tota l [Moles/volume] in Central venous blood [facility] Creatinine [Mass/vol ume] in Serum or Plasma [facility] D-dimer assay, quantitative [facility] Erythrocyte mean corpuscular volume determination [facility] Glucose [Mass/volume ] in Serum or Plasma [facility] Hematocrit [Volume Fraction] of Blood [facility] Hemoglobin [Mass/vol ume] in Blood [facility] INR in Blood by Coag ulation assay [facility] Leukocytes [#/volume ] in Blood [facility] Mean corpuscular hem oglobin concentration determination [facility] Mean corpuscular hem oglobin determination [facility] Measurement of renal function [facility] Neutrophil count [facility] Neutrophil percent differential count [facility] Patient Education [facility] Work Phone: Patient referral [facility] Work Phone: Platelets [#/volume] in Blood [facility] Potassium measurement [facility] Red blood cell count [facility] Red cell distributio n width determination [facility] Serum chloride measurement [facility] Sodium measurement [facility] Total protein measurement [facility] Urea nitrogen [Mass/ volume] in Serum or Plasma [facility] Immunizations Immunization Date Immunization Notes Care Provider Fa cility 08-16-2020 influenza, seasonal, injectable Gaby Ivy MA [facility] 08-19-2019 influenza, seasonal, injectable Gaby Ivy MA [facility] 09-14-2017 Influenza, injectabl e, Madin Heather Canine Kidney, preservative free, quadrivalent Gaby Ivy MA [facility] 08-12-2014 influenza, seasonal, injectable Gaby Ivy MA [facility] 09-07-2009 novel influenza-H1N1 -09, preservative-free, injectable Gaby Ivy MA [facility] Payers Date Payer Category Payer Self-pay 2019 Private Health Insurance [employer] A ETNA CHOICE POS II [id number] 2019-Present [phone] [address] [place] [address] POS [id number] 2017 Unknown [id number] Private Health Insurance [id number] Unknown [id number] 2.16.840.1.045245.3.579.2.4 62 Unknown [id number] 2.16.840.1.780255.3.579.2.4 62 Unknown [id number] 2.16.840.1.344790.3.579.2.4 62 Unknown [id number] 2.16.840.1.164121.3.579.2.4 62 Unknown [id number] 2.16.840.1.884216.3.579.2.4 62 Unknown [id number] 2.16.840.1.784849.3.579.2.4 62 Unknown [id number] 2.16.840.1.162015.3.579.2.4 62 Unknown [id number] 2.16.840.1.421678.3.579.2.4 62 Unknown [id number] 2.16.840.1.589286.3.579.2.4 62 Unknown [id number] 2.16.840.1.127389.3.579.2.4 62 Unknown [id number] 2.16.840.1.948188.3.579.2.4 62 Unknown [id number] 2.16.840.1.508953.3.579.2.4 62 Unknown [id number] 2.16.840.1.035154.3.579.2.4 62 Unknown [id number] 2.16.840.1.342637.3.579.2.4 62 Unknown [id number] 2.16.840.1.438822.3.579.2.4 62 Unknown [id number] 2.16.840.1.081502.3.579.2.4 62 Social History Date Type Detail Facility Start: 04-01-2020 End: 04-20-2025 Tobacco smoking status NHIS Never smoked tobacco [facility] Start: 04-01-2020 Tobacco use and exposure Smokeless tobacco non-user [facility] Start: 10-18-2020 Alcohol intake Not Asked Jose mejia [facility] Start: 1970 Sex Assigned At Not on file [facility] Start: 01-28-2025 End: 02-04-2025 Sex Male (finding) [facility] Start: 1970 Sex Assigned At Male [facility] Start: 05-07-2025 Tobacco smoking stat us NHIS Ex-smoker (finding) [facility] Clinical Notes 08-18-2021 to 05-19-2025 Note Date & Type Note Facility 05-19-2025 Progress note [facility] 04-20-2025 Evaluation note Diagnosis Onset Date Resolution Deep vein thrombosis (DVT) noneactive April 20, 2025 3 :22pm Deep vein thrombosis (DVT) noneactive May 19, 2025 1 0:14am [facility] Work Phone: 1(848) 388-212205-28-2025 Discharge summary [facility] Medical Records Department [address] [place] [address] Emergency Department Summary 04/08/25 MR#: [id number] Acct: [id number] Name: SHARA DELEON Rep #:[id number] : 1970 54 From: Tone Mata MD PCP: Samuel Howard SUCTION DREDGE DUMPING SUPERVISOR-C Status:REG ER Location: ED HPI History of [...] with hematology/oncology until the next few weeks. [facility] Medical History Back pain Limb weakness Home Medications ?Medication ?Instructions ?Recorded ?Last Taken ?Type Boostrix Tdap 2.5 Lf unit-8 mcg-5 0.5 ml IM ONCE #1 mL 08/28/22 Unknown Clinic Lf/0.5 mL intramuscular syringe (diphth,pertus(acell),tetanus) Flucelvax Quad 7001-2570 (PF) 60 0.5 ml IM ONCE #0.5 m L 08/28/22 Unknown Clinic mcg (15 mcg x 4)/0.5 mL IM syringe (flu vac qs 2021(6 ms up)CD(PF)) apixaban 5 mg (74 tabs) tablets in See Rx Instructions PO .COMPLEX 01/28/25 Unknown Rx a dose pack ([employer] DVT-PE Treat #74 tabs 30D Start) sulfacetamide [...] can be discharged to follow-up with a windscreen fitter oncologist. I do not feel he requires [...] (Auto) 45.8 L Lymph % (Auto) 39.8 Zapata % (Auto) 11.8 H Eos % (Auto) [...] embolism. The lungs are clear. Reading Location: [place] [address] Discharge Plan Triage Chief Complaint: Shortness of Breath ED Provider: Tone Mata Dx/Rx/DC Orders Clinical Impression: Dyspnea, History of deep vein thrombosis (DVT) of lower extremity Instructions: ED Dyspnea Prescriptions: No Action Boostrix Tdap 2.5-8-5 Lf-mcg-Lf/0.5mL syringe 0.5 ml IM ONCE Qty: 1 0RF Flucelvax Quad 5031-2357 (PF) 60 mcg (15 mcg x 4)/0.5 mL syringe 0.5 ml IM ONCE Qty: 0.5 0RF sulfacetamide sodium 10 % cleanser 1 applic topical QDAY Eliquis DVT-PE Treat 30D Start 5 mg (74 tabs) tablets,dose pack See Rx Instructions .ROUTE .COMPLEX Qty: 74 0RF Rx Instructions: orally per package directions Primary Care Provider: Samuel Howard Referrals: Samuel Howard, SUCTION DREDGE DUMPING SUPERVISOR-C [Primary Care Provider] - Activity Restrictions/Additional Instructions: Continue your Eliquis as previously directed. Follow-up with hematology/oncology as scheduled. Return with new or worsening symptoms. Print Language: Israeli Disposition Disposition: Home, Self Care What to do if you have Problems For any increased pain, shortness of breath, bleeding, nausea or vomiting, chestpain, or any unexpected problems, contact your Primary Care Provider. Call [employer] [facility] ([phone]) or report tothe closest Emergency Room. Call 911 if necessary. 04/08/25 0848 Cosigner Signature (if applicable): CC: Samuel Howard ~ Signed [facility]05-28-2025 Radiology Diagnostic study note [facility] Imaging Services [address] [place] [address] CTA Chest W/WO Contrast MR#: [id number] Acct: [id number] Name: SHARA DELEON Rep #: [id number] : 1970 M 54 From: Robin Wan MD PCP: Bautista Howardchelsea [facility] SUCTION DREDGE DUMPING SUPERVISOR-C Status: REG ER Study:CTA Chest W/WO Contrast Date of Exam: 04/08/25 Exam# [id number] Ordering Dr: Tone Mata MD PROCEDURE: CTA [...] embolism. The lungs are clear. Reading Location: [facility] CC: Dr. Tone Mata MD; [facility] SUCTION DREDGE DUMPING SUPERVISOR-C Beam ~ Speech Therapy Assistant: Signed [facility]03-19-2025 Discharge summary [facility] Medical Records Department [address] [place] [address] Emergency Department Summary 01/28/25 MR#: [id number] Acct: [id number] Name: SHARA DELEON Rep #:[id number] : 1970 54 From: Karri valentin DO PCP: Samuel Howard Cristina SUCTION DREDGE DUMPING SUPERVISOR-C Status:PRE ER Location: ED HPI History of [...] Lf/0.5 mL intramuscular syringe (diphth,pertus(acell),tetanus) Flucelvax Quad 0221-2965 (PF) 60 0.5 ml IM ONCE #0.5 [...] (Updated 12/31/23 @ 09:02 by Sandro Corbin SUCTION DREDGE DUMPING SUPERVISOR, SUCTION DREDGE DUMPING SUPERVISOR-C) Mother Colon cancer Pancreatic cancer Blood clotting [...] no contradictions to anticoagulation. 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 You need to be careful while being on blood thinners asblood thinners increase the risk of bleeding with injury aswell as spontaneous bleeding. Let your job know that you were started on blood thinners. Print Language: Israeli Disposition Disposition: Home, Self Care What to do if you have Problems For any increased pain, shortness of breath, bleeding, nausea or vomiting, chestpain, or any unexpected problems, contact your Primary Care Provider. Call [facility] ([phone]) or report tothe closest Emergency Room. Call 911 if necessary. 01/28/25 1254 Cosigner Signature (if applicable): CC: Samuel MONK SUCTION DREDGE DUMPING SUPERVISOR-Cristina Howard ~ Signed [facility]03-03-2025 Evaluation note* Diagnosis Onset Date Resolution Status Admit Date Encounter for piano refinisher md dical examination acute January 12, 2025 8:39am [facility] Work Phone: 1(234) 531-339703-03-2025 Evaluation note* Diagnosis Onset Date Resolution Status Admit Date Encounter for piano refinisher medical examination acute January 12 8:39am Deep vein thrombosis (DVT) noneactiv e April 20, 2025 3:22pm [facility] Work Phone: [phone] Evaluation note* Diagnosis Onset Date Resolution Status Admit Date Sinusitis, acute acute December 04, 2024 9:28am Encounter for piano refinisher medical examination acute January 12 8:39am [facility] Work Phone: [phone] NoteHNO ID: [id number] Author: Jayna Tellez LPN Service: ? Author Type: ? Type: Progress Notes Filed: 08/18/2021 5:17 PM Note Text: Health risk assessment done at [facility] summary Author Karri Escobedo [facility] Note Date/Time January 28, 2025 12: 54pm [facility] Medical Records Department [address] [place] [address] Emergency Department Summary 01/28/25 MR#: [id number] Acct: [id number] Name: SHARA DELEON Rep #:[id number] : 1970 54 From: Karri bernabeett PCP: Samuel Howard SUCTION DREDGE DUMPING SUPERVISOR-C Status:PRE ER Location: ED HPI History of [...] Lf/0.5 mL intramuscular syringe (diphth,pertus(acell),tetanus) Flucelvax Quad 2944-2365 (PF) 60 0.5 ml IM ONCE #0.5 [...] (Updated 12/31/23 @ 09:02 by Sandro Corbin SUCTION DREDGE DUMPING SUPERVISOR, SUCTION DREDGE DUMPING SUPERVISOR-C) Mother Colon cancer Pancreatic cancer Blood clotting [...] no contradictions to anticoagulation. 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 You need to be careful while being on blood thinners as blood thinners increase the risk of bleeding with injury aswell as spontaneous bleeding. Let your job know that you were started on blood thinners. Print Language: Israeli Disposition Disposition: Home, Self Care What to do if you have Problems For any increased pain, shortness of breath, bleeding, nausea or vomiting, chestpain, or any unexpected problems, contact your Primary Care Provider. Call [facility] ([phone]) or report to the closest Emergency Room. Call 911 if necessary. 01/28/25 1254 <Electronically signed by Karri Escobedo DO> Cosigner Signature (if applicable): CC: Samuel MONK SUCTION DREDGE DUMPING SUPERVISOR-C Anita ~ Signed [facility] Work Phone: Discharge summary Author Tone Mata [facility] Note Date/Time April 08, 2025 8:48a m [facility] Medical Records Department [address] [place] [address] Emergency Department Summary 04/08/25 MR#: [id number] Acct: [id number] Name: SHARA DELEON Rep #:[id number] : 1970 54 From: Tone Mata MD PCP: Samuel Howard SUCTION DREDGE DUMPING SUPERVISORLetiC Status:REG ER Location: ED HPI History of [...] with hematology/oncology until the next few weeks. [facility] Medical History Back pain Limb weakness Home Medications ?Medication ?Instructions ?Recorded ?Last Taken ?Type Boostrix Tdap 2.5 Lf unit-8 mcg-5 0.5 ml IM ONCE #1 mL 08/28/22 Unknown Clinic Lf/0.5 mL intramuscular syringe (diphth,pertus(acell),tetanus) Flucelvax Quad 0055-8901 (PF) 60 0.5 ml IM ONCE #0.5 [...] can be discharged to follow-up with a windscreen fitter oncologist. I do not feel he requires [...] (Auto) 45.8 L Lymph % (Auto) 39.8 Zapata % (Auto) 11.8 H Eos % (Auto) [...] embolism. The lungs are clear. [facility] Dis[facility] Triage Chief Complaint: Shortness of [...] Care Provider: Samuel Howard Referrals: Samuel Howard, SUCTION DREDGE DUMPING SUPERVISOR-C [Primary Care Provider] - Activity Restrictions/Additional Instructions: Continue your Eliquis as previously directed. Follow-up with hematology/oncology as scheduled. Return with new or worsening symptoms. Print Language: Israeli Disposition Disposition: Home, Self Care What to do if you have Problems For any increased pain, shortness of breath, bleeding, nausea or vomiting, chestpain, or any unexpected problems, contact your Primary Care Provider. Call [facility] ([phone]) or report to the closest Emergency Room. Call 911 if necessary. 04/08/25 0848 <Electronically signed by Tone Mata MD> Cosigner Signature (if applicable): CC: Samuel MONK SUCTION DREDGE DUMPING SUPERVISOR-Cristina Howard ~ Signed [facility] Work Phone: Hospital Discharge instructions Additional Instructions Follow-up with your primary care physician. You need to be careful while being on blood thinners as blood thinners increase the risk of bleeding with injury as well as spontaneous bleeding. Let your job know that you were started on blood thinners.[facility] Work Phone: Hospital Discharge instructions Additional Instructions Continue your Eliquis as previously directed. Follow-up with hematology/oncology as scheduled. Return with new or worsening symptoms.[facility] Work Phone: Progress note Author Anthony Medina [facility] Note Date/Time May 19, 2025 11:33 am [facility] [place] [address] OFFICE VISIT Date of Service: 05/19/25 1112 MR#: [id number] Acct: [id number] Name: SHARA DELEON Rep #: [id number] : 1970 From: Anthony Medina MD Age/Sex: 54/M Location: [facility] Status: Signed HPI Subjective Date of Service [...] when he stands for a long time. [facility] Medical History Paresthesia Cardiac arrhythmia Acute embolism [...] Signature: Date (if applicable) CC: Samuel MONK SUCTION DREDGE DUMPING SUPERVISOR-C Beam ~ [facility] Work Phone: Reason for referral (narrative)No reason for referral information [facility] Work Phone: Summary Purpose Family History [...] No January 28, 2025 12:57pm Power of Bottom Crane Operator No January 28 12:57pm Advance Directive Response Recorded Date/ Time Living Will No January 28, 2025 12:57pm Do you have a Healthcare Power of Bottom Crane Operator? No January 28, 2025 12:57pm Advance Directive Response Recorded Date/ Time Living Will No January 28, 2025 12:57pm Do you have a Healthcare Power of Bottom Crane Operator? No January 28, 2025 12:57pm Do you have a Healthcare Power of Bottom Crane Operator? Yes April 08, 2025 7:21am Name of Medical Power of Bottom Crane Operator April 08, 2025 7:21am Chief Complaint and Reason for Visit Chief Complaint Admit Date CONCERN FOR SINUS INFECTION November 9:28am FF PHYSICAL/ WFD January 12, 2025 8:39 am RIGHT LEG PAIN January 28, 2025 10: 41am LOWER EXT January 28, 2025 11: 59am Reason for Visit Admit Date Sinusitis, acute December 04, 2024 9 :28am Encounter for piano refinisher medical examin ation January 12, 2025 8:39am [...] Reason for Visit Admit Date Encounter for piano refinisher medical examin ation January 12, 2025 8:39am [...] Reason for Visit Admit Date Encounter for piano refinisher medical examin ation January 12, 2025 8:39am [...] section and content) DATE CREATED AUTHOR 05/14/2018 [facility] ([place]) DATE CREATED AUTHOR 'S ORGANIZ ATION 01/01/2022 [facility] DATE CREATED AUTHOR AUTHOR'S ORGANIZ ATION 05/27/2025 [facility] Source Comments (unrecognize d section and content) In the event this informatio n is protected by the Federal Confidentiality of Alcohol and Drug Abuse Patient Records regulations: The Federal rules restrict any use of the information to criminally investigate or prosecute any alcohol or drug abuse patient.[facility] Care Teams (unrecognized sec tion and content) Marketing Education Teacher Relationship Specialty Start Date End Date Rigoberto Reddy MD [address] [place] [address] PCP - General Family Medicine 04/01/20 Team Status: Active Member Role Status Dates Samuel Beam VSC, SUCTION DREDGE DUMPING SUPERVISOR-C Primary Care Provider Active Team Status: Inactive [...] Member Role Status Dates Zebulun Beam VSC, SUCTION DREDGE DUMPING SUPERVISOR-C Primary Care Provider Active Start: January 20, 2025 Zebulun Beam VSC, SUCTION DREDGE DUMPING SUPERVISOR-C Attending Provider Active Start: January 20, 2025 Team Status: Active Member Role Status Dates Zebulun Beam VSC, SUCTION DREDGE DUMPING SUPERVISOR-C Primary Care Provider Active Start: January 28, 2025 Zebulun Beam VSC, SUCTION DREDGE DUMPING SUPERVISOR-C Attending Provider Active Start: January 28, 2025 Zebulun Beam VSC, SUCTION DREDGE DUMPING SUPERVISOR-C Referring Provider Active Start: January 28, 2025 Team Status: Inactive Member Role Status Dates Zebulun Beam VSC, SUCTION DREDGE DUMPING SUPERVISOR-C Primary Care Provider Active Start: January 28, 2025 End: January 28, 2025 Dr. Karri Escobedo , DO Referring Provider Activ e Start: January 28, 2025 End: January 28, 2025 Dr. Karri Escobedo , DO Emergency Provider Activ e Start: January 28, 2025 End: January 28, 2025 Team Status: Inactive Member Role Status Dates Zebulun Beam VSC, SUCTION DREDGE DUMPING SUPERVISOR-C Primary Care Provider Active Start: January 20, 2025 End: January 20, 2025 Zebulun Beam VSC, SUCTION DREDGE DUMPING SUPERVISOR-C Attending Provider Active Start: January 20, 2025 End: January 20, 2025 Team Status: Inactive Member Role Status Dates Zebulun Beam VSC, SUCTION DREDGE DUMPING SUPERVISOR-C Primary Care Provider Active Start: January 28, 2025 End: January 28, 2025 Zebulun Beam VSC, SUCTION DREDGE DUMPING SUPERVISOR-C Attending Provider Active Start: January 28, 2025 End: January 28, 2025 Zebulun Beam VSC, SUCTION DREDGE DUMPING SUPERVISOR-C Referring Provider Active Start: January 28, 2025 End: January 28, 2025 Team Status: Active Member Role Status Dates Dr. Lincoln Quigley MD Attending Provider Active Start: January 28, 2025 Zebulun Beam VSC, SUCTION DREDGE DUMPING SUPERVISOR-C Referring Provider Active Start: January 28, 2025 Team Status: Inactive Member Role Status Dates Zebulun Beam VSC, SUCTION DREDGE DUMPING SUPERVISOR-C Primary Care Provider Active Start: January 28, [...] Member Role Status Dates Zebulun Beam VSC, SUCTION DREDGE DUMPING SUPERVISOR-C Primary Care Provider Active Start: March 05, 2025 Ирина Stewart Attending Provider Active Start: March 05, 2025 Team Status: Inactive Member Role Status Dates Zebulun Beam VSC, SUCTION DREDGE DUMPING SUPERVISOR-C Primary Care Provider Active Start: April 08, 2025 End: April 08, 2025 Tone Mata MD Emergency Provider Active Star t: April 08, 2025 End: April 08, 2025 Team Status: Inactive Member Role Status Dates Zebulun Beam VSC, SUCTION DREDGE DUMPING SUPERVISOR-C Primary Care Provider Active Start: April 08, 2025 End: April 08, 2025 Tone Mata MD Attending Provider Active Star t: April 08, 2025 End: April 08, 2025 Tone Mata MD Emergency Provider Active Star t: April 08, 2025 End: April 08, 2025 Team Status: Inactive Member Role Status Dates Zebulun Beam VSC, SUCTION DREDGE DUMPING SUPERVISOR-C Primary Care Provider Active Start: April 20, 2025 End: April 20, 2025 Zebulun Beam VSC, SUCTION DREDGE DUMPING SUPERVISOR-C Referring Provider Active Start: April 20, 2025 End: April 20, 2025 Dr. Anthony Medina MD Attending Provider Active S tart: April 20, 2025 End: April 20, 2025 Team Status: Active Member Role Status Dates Zebulun Beam VSC, SUCTION DREDGE DUMPING SUPERVISOR-C Primary Care Provider Active Start: April 20, 2025 Dr. Anthony Medina MD Attending Provider Active S tart: April 20, 2025 Dr. Anthony Medina MD Referring Provider Active S tart: April 20, 2025 Team Status: Active Member Role/Relationship Status Dates Zebulun Beam VSC, SUCTION DREDGE DUMPING SUPERVISOR-C Primary Care Provider Active Team Status: Inactive Member Role/Relationship Status Dates Zebulun Beam VSC, SUCTION DREDGE DUMPING SUPERVISOR-C Primary Care Provider Active Start: January 20, 2025 End: January 20, 2025 Zebulun Beam VSC, SUCTION DREDGE DUMPING SUPERVISOR-C Attending Provider Active Start: January 20, 2025 End: January 20, 2025 Team Status: Inactive Member Role/Relationship Status Dates Zebulun Beam VSC, SUCTION DREDGE DUMPING SUPERVISOR-C Primary Care Provider Active Start: January 28, 2025 End: January 28, 2025 Zebulun Beam VSC, SUCTION DREDGE DUMPING SUPERVISOR-C Attending Provider Active Start: January 28, 2025 End: January 28, 2025 Zebulun Beam VSC, SUCTION DREDGE DUMPING SUPERVISOR-C Referring Provider Active Start: January 28, 2025 End: January 28, 2025 Team Status: Active Member Role/Relationship Status Dates Dr. Lincoln Quigley MD Attending Provider Active Start: January 28, 2025 Zebulun Beam VSC, SUCTION DREDGE DUMPING SUPERVISOR-C Referring Provider Active Start: January 28, 2025 Team Status: Inactive Member Role/Relationship Status Dates Zebulun Beam VSC, SUCTION DREDGE DUMPING SUPERVISOR-C Primary Care Provider Active Start: January 28, [...] Member Role/Relationship Status Dates Zebulun Beam VSC, SUCTION DREDGE DUMPING SUPERVISOR-C Primary Care Provider Active Start: March 05, 2025 Ирина Stewart Attending Provider Active Start: March 05, 2025 Team Status: Inactive Member Role/Relationship Status Dates Zebulun Beam VSC, SUCTION DREDGE DUMPING SUPERVISOR-C Primary Care Provider Active Start: April 08, 2025 End: April 08, 2025 Tone Mata MD Attending Provider Active Star t: April 08, 2025 End: April 08, 2025 Tone Mata MD Emergency Provider Active Star t: April 08, 2025 End: April 08, 2025 Team Status: Inactive Member Role/Relationship Status Dates Zebulun Beam VSC, SUCTION DREDGE DUMPING SUPERVISOR-C Primary Care Provider Active Start: April 20, 2025 End: April 20, 2025 Zebulun Beam VSC, SUCTION DREDGE DUMPING SUPERVISOR-C Referring Provider Active Start: April 20, 2025 End: April 20, 2025 Dr. Anthony Medina MD Attending Provider Active S tart: April 20, 2025 End: April 20, 2025 Team Status: Inactive Member Role/Relationship Status Dates Zebulun Beam VSC, SUCTION DREDGE DUMPING SUPERVISOR-C Primary Care Provider Active Start: May 19, 2025 End: May 19, 2025 Zebulun Beam VSC, SUCTION DREDGE DUMPING SUPERVISOR-C Referring Provider Active Start: May 19, 2025 End: May 19, 2025 Dr. Anthony Medina MD Attending Provider Active S tart: May 19, 2025 End: May 19, 2025 Team Status: Active Member Role/Relationship Status Dates Zebulun Beam VSC, SUCTION DREDGE DUMPING SUPERVISOR-C Primary Care Provider Active Start: May 19, 2025 Dr. Anthony Medina MD Attending Provider Active S tart: May 19, 2025 Dr. Anthony Medina MD Referring Provider Active S tart: May 19, 2025 Team Status: Inactive Member Role/Relationship Status Dates Zebulun Beam VSC, SUCTION DREDGE DUMPING SUPERVISOR-C Primary Care Provider Active Start: January 28, 2025 End: January 28, 2025 Zebulun Beam VSC, SUCTION DREDGE DUMPING SUPERVISOR-C Attending Provider Active Start: January 28, 2025 End: January 28, 2025 Zebulun Beam VSC, SUCTION DREDGE DUMPING SUPERVISOR-C Referring Provider Active Start: January 28, 2025 End: January 28, 2025 Team Status: Active Member Role/Relationship Status Dates Dr. Lincoln Quigley MD Attending Provider Active Start: January 28, 2025 Zebulun Beam VSC, SUCTION DREDGE DUMPING SUPERVISOR-C Referring Provider Active Start: January 28, 2025 Team Status: Inactive Member Role/Relationship Status Dates Zebulun Beam VSC, SUCTION DREDGE DUMPING SUPERVISOR-C Primary Care Provider Active Start: January 28, [...] Member Role/Relationship Status Dates Zebulun Beam VSC, SUCTION DREDGE DUMPING SUPERVISOR-C Primary Care Provider Active Start: March 05, 2025 Ирина Stewart Attending Provider Active Start: March 05, 2025 Team Status: Inactive Member Role/Relationship Status Dates Zebulun Beam VSC, SUCTION DREDGE DUMPING SUPERVISOR-C Primary Care Provider Active Start: April 08, 2025 End: April 08, 2025 Tone Mata MD Attending Provider Active Star t: April 08, 2025 End: April 08, 2025 Tone Mata MD Emergency Provider Active Star t: April 08, 2025 End: April 08, 2025 Team Status: Inactive Member Role/Relationship Status Dates Zebulun Beam VSC, SUCTION DREDGE DUMPING SUPERVISOR-C Primary Care Provider Active Start: April 20, 2025 End: April 20, 2025 Zebulun Beam VSC, SUCTION DREDGE DUMPING SUPERVISOR-C Referring Provider Active Start: April 20, 2025 End: April 20, 2025 Dr. Anthony Medina MD Attending Provider Active S tart: April 20, 2025 End: April 20, 2025 Team Status: Inactive Member Role/Relationship Status Dates Zebulun Beam VSC, SUCTION DREDGE DUMPING SUPERVISOR-C Primary Care Provider Active Start: May 19, 2025 End: May 19, 2025 Zebulun Beam VSC, [employer] SUPER[employer]OR-C Referring Provider Active Start: May 19, 2025 End: May 19, 2025 Dr. Anthony Medina MD Attending Provider Active S tart: May 19, 2025 End: May 19, 2025 Team Status: Active Member Role/Relationship Status Dates Zebulun Beam VSC, [employer]ING SUPERVISOR-C Primary Care Provider Active Start: May 19, 2025 Dr. Anthony Medina MD Attending Provider Active S tart: May 19, 2025 Dr. Anthony Medina MD Referring Provider Active S tart: May 19, 2025 Team Status: Inactive Member Role/Relationship Status Dates Zebulun Beam VSC, [employer] DU[employer]ING SUPERVISOR-C Primary Care Provider Active Start: May 27, 2025 End: May 27, 2025 Zebulun Beam VSC, [employer] DUMPING SUPERVISOR-C Referring Provider Active Start: May 27, 2025 [...] BE BASED ON THE PRIMARY CLINICAL RECORDS. [facility] [employer] [facility]. provides no warranty or guarantee of the accuracy or completeness of information in this document.
== END | disposition home or self-care (01) ==
LOC: LAB 10:33
PROVIDERS: Referring Provider Internal Medicine Cardiovascular Disease; Visit Provider Internal Medicine Cardiovascular Disease
DX: R00.2 Palpitations (principal)
CPT/HCPCS: 36415; 84443

== ENCOUNTER → 2025-06-24 | Outpatient (CLI) | payer OTHER, SELFPAY ==
--- NOTE | 2025-06-24 12:29 | ECHOD_ITS ---
Reason For Study Reason For Study: ARRHYTHMIA Procedure This was a 2D Doppler, Color Flow transthoracic echocardiogram. Exam performed in department. Left Ventricle Normal LV size. Left ventricular systolic function is normal. The left ventricular ejection fraction is 65 %. Stage 1 diastolic dysfunction. No regional wall motion abnormalities noted. Right Ventricle Normal RV size. Normal systolic function. Atria Normal left atrium. Normal right atrium. Mitral Valve Normal mitral valve. Tricuspid Valve Normal tricuspid valve. Mild tricuspid valve insufficiency. Pulmonary artery systolic pressure is 24 mmHg. Aortic Valve Normal aortic valve. Pulmonic Valve Normal pulmonic valve. Great Vessels Normal aortic root. The pulmonary artery is normal size. Inferior vena cava collapse with respiration. Pericardium/Pleural No pericardial effusion. MMode/2D Measurements & Calculations LVIDd: 5.0 cm IVSd: 0.72 cm LVOT diam: 2.1 cm LVIDs: 3.3 cm LVPWd: 0.77 cm LVOT area: 3.4 cm2 RVDd: 3.3 cm FS: 34.5 % asc Aorta Diam: 3.3 cm LAV(MOD-bp): 31.1 ml LVAd ap4: 19.9 cm2 LAV(MOD-bp) Indexed: 15.5 ml/m2 LVLd ap4: 7.6 cm LAV(MOD-sp2): 32.5 ml EDV(MOD-sp4): 46.5 ml LAV(MOD-sp4): 28.5 ml EDV(sp4-el): 44.3 ml LVAs ap4: 11.5 cm2 LVLs ap4: 6.6 cm ESV(MOD-sp4): 18.1 ml ESV(sp4-el): 17.1 ml EF(MOD-sp4): 61.1 % EF(sp4-el): 61.4 % LVAd ap2: 20.2 cm2 SV(MOD-sp4): 28.4 ml SV(MOD-sp2): 26.7 ml LVLd ap2: 7.8 cm SI(MOD-sp4): 14.2 ml/m2 SI(MOD-sp2): 13.4 ml/m2 EDV(MOD-sp2): 45.8 ml EDV(sp2-el): 44.3 ml LVAs ap2: 12.1 cm2 LVLs ap2: 7.1 cm ESV(MOD-sp2): 19.1 ml ESV(sp2-el): 17.6 ml EF(MOD-sp2): 58.4 % SV(sp4-el): 27.2 ml Ao sinus diam: 3.[address] Junction: 2.9 cm LA dimension(2D): 3.5 cm LA A4 area: 13.6 cm2 RA A4 area: 12.3 cm2 TAPSE: 1.7 cm Time Measurements MV dec time: 0.16 sec Doppler Measurements & Calculations MV E max jaime: 56.3 cm/sec Lat Peak E' Jaime: 14.0 cm/sec Med Peak E' Jaime: 8.5 cm/sec MV A max jaime: 59.8 cm/sec E/E' lat: 4.0 E/E' med: 6.7 MV E/A: 0.94 MV dec slope: 358.2 cm/sec2 Ao V2 max: 131.0 cm/sec LV V1 max: 110.9 cm/sec Ao max P.9 mmHg LV V1 max P.9 mmHg Ao V2 mean: 93.8 cm/sec LV V1 mean P.8 mmHg Ao mean P.0 mmHg LV V1 mean: 76.7 cm/sec Ao V2 VTI: 28.4 cm LV V1 VTI: 23.0 cm AV (velocity ratio): 0.81 MALLORY(I,D): 2.7 cm2 MALLORY(V,D): 2.8 cm2 SV(LVOT): 77.0 ml PA V2 max: 112.6 cm/sec TR max jaime: 229.1 cm/sec TR max P.0 mmHg ECHO/Echo Complete Interpretation Summary Normal LV size. Left ventricular systolic function is normal. The left ventricular ejection fraction is 65 %. Stage 1 diastolic dysfunction. Ordering Physician: Uzair Gaffney Referring Physician: Uzair Gaffney MD Performed By: Genoveva Whiting RDCS
--- NOTE | 2025-06-25 07:30 | STRESSREP ---
Stress Test Report Exercise stress test. 54-year-old male with a history of shortness of breath and irregular heartbeat Stress protocol: Resting EKG demonstrates sinus bradycardia with a rate of 48 bpm resting blood pressure is 112/74 mmHg. The patient exercised according to the regular Ari protocol for a total duration of 15 minutes attaining a maximum heart rate of 164 bpm which was 98% of maximum predicted heart rate; the maximum workload was 17.5 metabolic equivalents. At rest there were no ST or T wave changes noted to suggest ischemia and at peak exercise upsloping ST changes only were noted which did not meet the criteria for ischemia. No clinical angina was noted the test was terminated due to the target heart rate being achieved/fatigue. The peak blood pressure was 142/82 mmHg. Rate-pressure product was 22,400. No arrhythmias were noted and there is no evidence of chronotropic incompetence present. Conclusion: Exercise stress test with no EKG criteria for ischemia at a high workload. Excellent functional aerobic capacity. No arrhythmias noted. Excellent heart rate response to exercise.
== END | disposition home or self-care (01) ==
PROVIDERS: Referring Provider Internal Medicine Cardiovascular Disease; Visit Provider Internal Medicine Cardiovascular Disease
DX: I49.9 Cardiac arrhythmia, unspecified (principal); R06.02 Shortness of breath
CPT/HCPCS: 93017; 93306

== ENCOUNTER → 2025-09-22 | Outpatient (CLI) | payer OTHER, SELFPAY ==
--- NOTE | 2025-09-22 08:49 | VDLE_ITS ---
Reason For Study Reason For Study: BLE Pain / Swelling RIGHT LEFT CFV is compressible, spontaneous, phasic, competent CFV is compressible, spontaneous, phasic, competent, and demonstrates normal augmentation. and demonstrates normal augmentation. FV is compressible, spontaneous, phasic, competent FV is compressible, spontaneous, phasic, competent and demonstrates normal augmentation. and demonstrates normal augmentation. POP V is compressible, spontaneous, phasic, competent POP V is compressible, spontaneous, phasic, competent and demonstrates normal augmentation. and demonstrates normal augmentation. T/P Trunk is compressible. T/P Trunk is compressible. PTV is compressible. PTV is compressible. RT PerV is compressible. LT PerV is compressible. SFJ is INCOMPETENT and measures 0.44 cm. SFJ is competent and measures 0.47 cm. GSV proximal thigh measures 0.43 X 0.44 cm. GSV proximal thigh measures 0.34 x 0.36 cm. GSV at knee measures 0.10 x 0.10 cm. GSV at knee measures 0.17 x 0.20 cm. GSV INCOMPETENT throughout for greater than 0.5 GSV above knee is competent. seconds. GSV below knee is INCOMPETENT for greater than 0.5 SSV mid calf is competent and measures 0.15 x 0.21 seconds. cm. SSV mid calf is competent and measures 0.21 x 0.22 Procedure cm. Exam performed in department. This is a venous duplex using B-mode, color flow and spectral Doppler. The exam was diagnostic. Patient was scanned in reverse Trendelenburg position during reflux assessment. VL/Venous Duplex US - Ruy Extrem Interpretation Summary Deep veins of the bilateral lower extremities are patent and compressible segme ntally. There is no evidence of bilateral lower extremity deep vein thrombosis. The bilateral great saphenous veins appea r patent and compressible segmentally. Positive for reflux in the right saphenofemoral junction, great saphenous vein throughout. Positive for reflux in the left great saphenous vein below the knee. Ordering Physician: Nova Tirado Referring Physician: Chris Howard Performed By: Rigo Strauss RVT
== END | disposition home or self-care (01) ==
LOC: CVS 08:46
PROVIDERS: Referring Provider Physician Assistant; Visit Provider Physician Assistant
DX: M79.604 Pain in right leg (principal); Z86.718 Personal history of other venous thrombosis and embolism
CPT/HCPCS: 93970